=== PATIENT | male | born 1940 | race Caucasian/White ===

== ENCOUNTER → 2017-01-26 | Outpatient (CLI) | payer MEDICARE ==
--- NOTE | 2017-01-27 08:08 | ECHOF ---
Referral Reason:Z01.818 Pre Chemo MEASUREMENTS -------- HEIGHT: 172.7 cm WEIGHT: 83.0 kg BP: 130/60 RVIDd: 3.3 cm (< 3.3) IVSd: 1.0 cm (0.6 - 1.1) LVIDd: 4.9 cm (3.9 - 5.3) LVPWd: 1.0 cm (0.6 - 1.1) IVSs: 1.5 cm LVIDs: 4.2 cm LVPWs: 1.5 cm LAESV Index (A-L): 28.74 ml/m Ao Diam: 3.8 cm (2.0 - 3.7) AV Cusp: 0.9 cm (1.5 - 2.6) LA Diam: 4.1 cm (2.7 - 3.8) MV E Mariusz: 0.72 m/s MV DecT: 344 ms MV A Mariusz: 0.97 m/s MV E/A Ratio: 0.74 AV maxP.30 mmHg AV meanP.43 mmHg RAP: 5.00 mmHg RVSP: 37.37 mmHg FINDINGS -------- Sinus rhythm with extra systolic beats. This was a technically adequate study. Overall left ventricular systolic function is normal with, an EF between 55 - 60 %. The right ventricle is normal in size and function. LA is midly dilated 29-33ml/m2. The right atrium is normal in size. Aortic valve is trileaflet and is severely thickened. Trace amount of aortic regurgitation. Moderate to severe aortic stenosis with peak/mean pressure gradient of 61.30mmHg / 37.43mmHg, Mild mitral annular calcification present. There is trace to mild mitral regurgitation. Mild tricuspid regurgitation present. There is mild pulmonary hypertension. The right ventricular systolic pressure, as measured by Doppler, is 37.37mmHg. The pulmonic valve was not well visualized. The aortic root size is normal. Normal inferior vena cava with normal inspiratory collapse consistent with estimated right atrial pressure of 5 mmHg. There is a small pericardial effusion is located near the right ventricle. CONCLUSIONS -------- 1. Sinus rhythm with extra systolic beats. 2. There is mild pulmonary hypertension. 3. The right ventricular systolic pressure, as measured by Doppler, is 37.37mmHg. 4. The pulmonic valve was not well visualized. 5. The aortic root size is normal. 6. There is a small pericardial effusion is located near the right ventricle. 7. This was a technically adequate study. 8. LA is midly dilated 29-33ml/m2. 9. Aortic valve is trileaflet and is severely thickened. 10. Trace amount of aortic regurgitation. 11. Moderate to severe aortic stenosis with peak/mean pressure gradient of 61.30mmHg / 37.43mmHg, 12. Mild mitral annular calcification present. 13. There is trace to mild mitral regurgitation. 14. Mild tricuspid regurgitation present. [employer]: Aubrey Clancy RDCS
== END | disposition home or self-care (01) ==
LOC: RADECHMAIN 13:38
PROVIDERS: ATTEND Internal Medicine Hematology & Oncology
DX: Z01.810 Encounter for preprocedural cardiovascular examination (principal); I08.3 Combined rheumatic disorders of mitral, aortic and tricuspid valves; I27.2 Other secondary pulmonary hypertension; I31.3 Pericardial effusion (noninflammatory)
CPT/HCPCS: 93306

== ENCOUNTER 2017-01-28 07:43 | Day surgery (SDC) | payer MEDICARE ==
[2017-01-25 09:58] VITALS: BMI 31.0
[~2017-01-28 07:43] MED LIST: LACTATED RINGERS 1,000 ML IV SCH; Pre Op ABX Message 1 EACH MISC MISCELLANE ONE
[2017-01-28 08:20] VITALS: RESP 16; TEMP 98.1
[2017-01-28] MEDS ORDERED: LIDOCAINE 1% 20 ML VIAL (10MG/ML) FOR IV START INTRADERMA ONE (08:33)
[2017-01-28 08:36] LABS: Glucose,Whole Blood 102 mg/dL (75-99)
[2017-01-28 09:21] LABS: Anisocytosis Slight; CHCM 31.8; HCT 27.5 % (39.0-53.0); HDW 3.24; HGB 8.7 gm/dL (13.0-17.5); Hypochromasia Slight; MCH 31.9 pg (25.0-35.0); MCHC 31.5 g/dL (31.0-37.0); MCV 101.2 fL (80.0-100.0); Macrocytosis Slight; Mean Platelet Volume 7.6; RBC 2.72 m/uL (4.30-5.90); WBC 19.9 k/uL (3.8-10.6)
[2017-01-28] MEDS ORDERED: LIDOCAINE 1% INJ 10MG/ML (20 ML MDV) ONE (09:33)
[2017-01-28] MEDS ORDERED: fentaNYL (PF) 50 MCG/ML 2 ML AMP ONE (09:33)
[2017-01-28] MEDS ORDERED: MIDAZOLAM 2 MG/2 ML VIAL ONE (09:33)
[2017-01-28] MEDS ORDERED: PROPOFOL 10 MG/ML 20 ML VIAL IV ONE (09:33)
[2017-01-28] MEDS ORDERED: SODIUM CHLORIDE 0.9% 50 ML with ceFAZolin 2,000 MG IV ONE ×2 (09:45)
[2017-01-28] MEDS ORDERED: LIDOCAINE 1% INJ 10MG/ML (20 ML MDV) SQ ONE ×2 (09:57)
[2017-01-28] MEDS ORDERED: HEPARIN SODIUM,PORCINE 100 UNIT/ML 5 ML VIAL IV ONE ×2 (09:57)
--- NOTE | 2017-01-28 10:21 | P.OP ---
Date of Procedure: 01/28/17 Preoperative Diagnosis: Metastatic prostate cancer Difficult IV access Postoperative Diagnosis: Same Procedure(s) Performed: Right internal jugular 8-[place] Mediport placement under fluoroscopic and SonoSite guidance Implants: 8-[place] MediPort Anesthesia: MAC, local Surgeon: Chantal Neal Pathology: none sent Condition: stable Disposition: PACU Indications for Procedure: 76 years old male presents with metastatic prostatic cancer is undergoing chemotherapy. He presents today for Mediport placement Operative Findings: Description of Procedure: The patient was brought to the operating room and placed in supine position with both arms tucked. A footboard was placed. Chlorhexidine was used to prep the neck followed by application of sterile drapes and an Ioban dressing . A timeout was performed to verify correct patient and correct procedure. Patient was confirmed to receive perioperative IV antibiotics and VTE prophylaxis. An ultrasound was performed of the right neck to identify the carotid artery and internal jugular vein. The internal jugular vein was compressible and patent . Photodocumentation was made. Local anesthetic was infiltrated to create a field block. Seldinger technique was used and the internal jugular vein was accessed under direct ultrasound guidance. There was good backflow of dark venous blood. The guidewire was inserted and fluoroscopic images obtained to confirm the tip in SVC. The needle was removed followed by insertion of a dilator peel-away sheath. Local anesthetic was infiltrated along the inferior aspect of the right clavicle. A 2.5 cm skin incision was made and dissection was carried up to the pectoralis major muscle. A pocket was created for the port. The catheter tubing was connected to the port using the conector after flushing both the port and the catheter with normal saline. The tunneling device was connected to the end of the catheter and after placement of the port in the subcutaneous pocket the tunneling device was passed from the lower incision to the counter incision in the neck. The catheter was measured at the junction of SVC and right atrium. The inner cannula of the peel-away sheath was removed and catheter was gradually inserted. The peel-away sheath was gradually removed. Fluoroscopic image confirmed the tip of the catheter at the junction of SVC and right atrium. There was no kink, fold or torsion of the catheter and the port. The Ocasio needle was used to access the port and easy backflow was obtained. This was flushed with 10 mL of normal saline and 10 mL of Hep-Lock was inserted. The skin incision was closed in 3 layers using 3-0 Vicryl interrupted stitches and a running suture of 4-0 Monocryl. Counter incision in the neck was also closed using 3-0 Vicryl followed by 4-0 Monocryl. Dermabond skin glue was applied followed by Telfa and Tegaderm dressing. The sponge, instrument and needle count were correct x2 Patient tolerated the procedure well and was taken to post anesthesia care unit in stable condition Final chest x-ray showed the tip of the catheter in SVC and no pneumothorax. Total fluoroscopic time was 4 seconds
[2017-01-28 10:51] VITALS: PULSE 72
--- NOTE | 2017-01-28 11:23 | XR ---
EXAMINATION TYPE: XR chest 1V confirm line plcmt DATE OF EXAM: 01/28/2017 COMPARISON: 03/10/2016 HISTORY: 76-year-old male Mediport placement, rule out pneumothorax TECHNIQUE: Single frontal view of the chest is obtained. FINDINGS: Right anterior chest wall injection port with catheter tip seen to the level of the lower SVC. Multip le old healed right-sided rib fracture deformities are present. These fracture deformities cause abno rmal linear densities and lucencies in the apex making assessment for a trace pneumothorax difficult. No sizable pneumothorax is seen. Old healed left clavicular shaft fracture deformity and suspected o ld healed fracture distal right clavicle. There is some blunting of the left costophrenic angle noted . The heart is normal size. Pulmonary vasculature within normal limits. IMPRESSION: 1. Right-sided injection port with tip at the lower SVC. 2. Extensive healed fracture deformities of multiple right-sided ribs. This distorts the normal appea zoe at the right apex limiting assessment for small pneumothorax. No sizable pneumothorax is seen. Consider short interval follow-up. 3. Trace blunting of the left costophrenic angle could represent trace effusion or small amount of pa tchy atelectasis/infiltrate.
[2017-01-28 11:29] VITALS: BP 113/63
--- NOTE | 2017-01-28 12:03 | FL ---
Fluoroscopy HISTORY: Port-A-Cath insertion 4 seconds fluoroscopy time supplied to the referring clinician. 1 intraoperative C-arm images docume nt the procedure. See dictated report from general surgery.
== END 2017-01-28 12:06 | disposition home or self-care (01) ==
LOC: OR 07:43
PROVIDERS: ATTEND Surgery
DX: C61 Malignant neoplasm of prostate (principal); I48.91 Unspecified atrial fibrillation; I10 Essential (primary) hypertension; K21.9 Gastro-esophageal reflux disease without esophagitis; Z88.5 Allergy status to narcotic agent; Z91.018 Allergy to other foods; Z91.09 Other allergy status, other than to drugs and biological substances
CPT/HCPCS: 85027; 77001; 36561; 76937; C1788; J2250; J1642; J2001; J3010; J0690; J2704

== ENCOUNTER → 2017-10-18 | Outpatient (CLI) | payer OTHER ==
--- NOTE | 2017-10-18 15:21 | NM ---
EXAMINATION TYPE: NM bone scan whole body DATE OF EXAM: 10/18/2017 COMPARISON: Prior bone scan and CT 04/14/2017 HISTORY: Prostate cancer Delayed whole-body scanning was performed following the injection of 25.1 mCi Tc 99m MDP. Images acq uired 3 hours post injection. FINDINGS: Uptake at the level of the proximal femur is again noted. Suspect there is an ostomy bag in the right lower quadrant. Uptake present at the level of the pubic symphysis on the right greater than left, i schium on the left and ilium on the right and posterior right eighth rib appear less intense. Questio n a small focus of uptake involving the sternum on the right. Sacral activity corresponds to abnormal ity seen on CT. There is a mild spinal curvature. Old right-sided rib fractures again noted posteriorly, old left-jhonathan ed clavicular fracture noted and appears healed. IMPRESSION: Some improvement in the intensity of uptake is noted.
== END ==
LOC: RADNMMAIN 10:45
PROVIDERS: ATTEND Internal Medicine Hematology & Oncology
DX: C61 Malignant neoplasm of prostate (principal)
CPT/HCPCS: 82565; 84520; 78306; A9503

== ENCOUNTER → 2017-10-21 | Outpatient (CLI) | payer OTHER ==
[2017-10-21 08:50] LABS: Blood Urea Nitrogen 9 mg/dL (9-20)
--- NOTE | 2017-10-21 11:13 | CT ---
EXAMINATION TYPE: CT ChestAbdPelvis w con DATE OF EXAM: 10/21/2017 COMPARISON: Prior CT chest abdomen and pelvis April 14, [address] studies. HISTORY: Prostate CA, observed for metastases. CT DLP: 762.8 mGycm. Automated Exposure Control for Dose Reduction was Utilized. CONTRAST: CT scan of the thorax, abdomen and pelvis is performed with oral and with IV Contrast, patient inject ed with 100 mL of Isovue 300. FINDINGS: LUNGS: There is bibasilar scarring and/or atelectasis. No suspicious greater than 5 mm new parenchyma l nodules or masses are present. There is no pleural effusion or pneumothorax seen. The tracheobronc hial tree is patent. MEDIASTINUM: There are no greater than 1 cm hilar or mediastinal lymph nodes. No cardiomegaly or pe ricardial effusion is seen. Coronary artery calcification is present which is noted marker for coron kina artery disease. There is stable right internal jugular Mediport catheter. OTHER: No obvious supraclavicular adenopathy on current study LIVER/GB: Multiple hypodense lesions consistent with hepatic metastatic disease are redemonstrated. T arget lesion anterior segment right hepatic lobe measures 4.7 cm long axis adjacent to is slightly hy podense oval lesion posteriorly axial image 53 measured 5.5 cm long axis prior study image 52. Lesion anterior aspect lateral segment left hepatic lobe measures 4.3 cm long axis axial image 54 versus 5. 2 cm long axis prior study image 52. Overall all suspicious lesions appear slightly smaller in size f rom prior study. There are few denser lesions felt to reflect simple cysts are felt stable. No defini tive new lesions are seen. PANCREAS: No significant abnormality is seen. SPLEEN: No significant abnormality is seen. ADRENALS: Stable slight nodularity posterior limb left adrenal gland axial image 58 favored benign. KIDNEYS: Along lateral aspect of right kidney there is new focal somewhat ill-defined fluid mid pole level axial image 66 of uncertain etiology. There is partially duplicated right-sided collecting syst em with central calcifications likely vascular in etiology. There is symmetric cortical medullary upt angela and excretion from both kidneys without hydronephrosis identified bilaterally. Bladder is surgica lly absent. There is right-sided ileal conduit redemonstrated. BOWEL: There is persistent distal colectomy with left mid sided colostomy. A few diverticula in the d istal colon are present. There is no suspicious small or large bowel dilatation. There is persistent abnormal soft tissue in the presacral space near axial image 109 felt fairly stable favoring scar tis vinita from prior surgery. There is stable small to moderate-sized hiatal hernia. No adjacent adenopathy is seen. GENITAL ORGANS: Prostate is surgically absent. LYMPH NODES: No new greater than 1cm abdominal or pelvic lymph nodes are appreciated. Stable subcenti meter left periaortic lymph node measures 11 x 5 mm axial image 60. OSSEOUS STRUCTURES: Metallic hardware in the right proximal femur is redemonstrated causing streak ar tifact. Moderate to severe joint space loss and spurring and left hip is present. Sclerotic metastatic disease involving left posterior acetabulum, right iliac crest coronal image 55, and lower sacrum seen best coronal image 79 is redemonstrated felt stable. There is demineralization with slight underlying scoliotic curvature moderate to severe multilevel spurring. There are numerou s right-sided posterior and lateral healed rib fractures. OTHER: There is moderate to severe calcified plaque of aorta extending into branch vessels IMPRESSION: Overall positive treatment response (suspected patient is currently on chemotherapy) with diminished size of hepatic metastatic lesions. No new metastatic lesions are seen. By RECIST criter ia there is however less than 30% response and is thus technically stable disease by RECIST.
== END | disposition home or self-care (01) ==
LOC: RADPROMAIN 07:53
PROVIDERS: ATTEND Internal Medicine Hematology & Oncology
DX: C61 Malignant neoplasm of prostate (principal); C78.7 Secondary malignant neoplasm of liver and intrahepatic bile duct
CPT/HCPCS: 82565; 84520; 71260; 74177; J1642; Q9967

== ENCOUNTER → 2018-01-17 | Outpatient (CLI) | payer OTHER ==
[2018-01-17 10:48] LABS: Blood Urea Nitrogen 13 mg/dL (9-20)
--- NOTE | 2018-01-17 14:48 | NM ---
EXAMINATION TYPE: NM bone scan whole body DATE OF EXAM: 01/17/2018 COMPARISON: 10/18/2017 HISTORY: Prostate cancer Delayed whole-body scanning was performed following the injection of 24.5 mCi Tc 99m MDP. Images acq uired 3 hours post injection. FINDINGS: Uptake at the level of the proximal femur is again noted. Suspect there is an ostomy bag in the right lower quadrant. Uptake present at the level of the pubic symphysis on the right greater than left, i schium on the left and ilium on the right and posterior right eighth rib appear less intense. Questio n a small focus of uptake involving the sternum on the right. Sacral activity corresponds to abnormal ity seen on CT. There is a mild spinal curvature. Old right-sided rib fractures again noted posteriorly, old left-jhonathan ed clavicular fracture noted and appears healed. IMPRESSION: Stable abnormal uptake unchanged from the prior exam. Findings compatible with metastases.
--- NOTE | 2018-01-17 18:44 | CT ---
EXAMINATION TYPE: CT ChestAbdPelvis w con DATE OF EXAM: 01/17/2018 INDICATION: Prostate CA, suspect mets COMPARISON: 10/21/2017 CT DLP: 814.2 mGycm CONTRAST: Performed with Oral Contrast and with IV Contrast, patient injected with 100 mL of Isovue 300. TECHNIQUE: Axial images at 5 mm thick sections. Reconstructed images in the coronal plane. Delayed images through the kidneys. FINDINGS: CT CHEST: Portion of the thyroid visualized is normal. No suspicious lung nodules or focal infiltrates are present. No enlarged mediastinal or hilar adenopathy is evident. The ascending aorta diameter at the level of the main pulmonary artery is 3.4 cm. The main pulmonary artery diameter at the bifurcation is 2.7 cm. Coronary artery calcifications present. Small right pl eural effusion may be present. There is a 0.5 cm nodule at the posterior lateral left midlung. This w as faintly visualized previously. Interval growth is not evident. Series 4 image 33 additional puncta te densities in the right lower lobe superior segment measuring 0.3 cm[address] Series [address] ABDOMEN: Liver: There are multiple enlarged hypodensities with ill-defined margins within the liver compatible with metastatic disease. These are less defined than the comparison. Where comparable these appear l arger. There is a more hypodense area within the mid medial right lobe liver measuring 5.0 cm which i s enlarged from comparison. This has Hounsfield unit measurements of 23. Lesions are within both left and right lobes of liver. A more infiltrative process is not excluded in the left lobe liver the cur rent examination. Spleen: Normal Pancreas: Normal Adrenal glands: The adrenal glands are normal. Gallbladder: Normal Kidneys: No masses are evident. No hydronephrosis is present. There is an ill-defined 3.2 cm hypode nsity measuring 4 Hounsfield units on the posterior lateral right mid kidney present previously. Del ayed images were obtained through the kidneys, which remain unremarkable. Aorta: Vascular calcification is within the aorta. Inferior vena cava: Normal. CT PELVIS: Scattered diverticuli are within the colon. Ostomy site is in the right lower quadrant. There is a di lated right ureter urostomy bag is on the right. Left ureter is less prominent than on the right. There are loops of bowel which are incompletely distended or lack oral contrast limiting their evalu ation. Appendix: Normal as visualized. Urinary bladder: Surgically absent Genitourinary structures: Prostate is absent. Loops of bowel falling into the lower portion of the pe lvis. Osseous structures: There is a large sclerotic metastasis along the posterior left ilium. Prior repai r of fractures in the right femur. Scoliosis and degenerative changes are through the spine. IMPRESSIONS: 1. Hepatic lesions are less distinct than on the prior study and a more infiltrative process may be p resent. Lesions appear larger than the comparison study. 2. Sclerotic metastasis likely along the posterior left ilium. 3. Postsurgical changes. There is some prominence of the right ureter. 4. Couple of small nodules within the bilateral lung funez, present previously. On the right this bustamante s enlarged slightly from comparison
== END | disposition home or self-care (01) ==
LOC: RADNMMAIN 09:35
PROVIDERS: ATTEND Internal Medicine Hematology & Oncology
DX: R93.7 Abnormal findings on diagnostic imaging of other parts of musculoskeletal system (principal); K76.9 Liver disease, unspecified; R91.8 Other nonspecific abnormal finding of lung field; C61 Malignant neoplasm of prostate
CPT/HCPCS: 82565; 84520; 71260; 74177; 78306; A9503; J1642; Q9967

== ENCOUNTER 2018-03-19 07:40 | Emergency (ER) | payer OTHER ==
[2018-03-19 07:45] VITALS: RESP 16
--- NOTE | 2018-03-19 07:59 | ED ---
Extremity Problem HPI - General Source: patient, RN notes reviewed, old records reviewed Mode of arrival: ambulatory Limitations: no limitations <Fadia Bullock - Last Filed: 03/19/18 09:43> <Robby Pereira - Last Filed: 03/19/18 09:48> - General Chief complaint: Extremity Problem,Nontraumatic Stated complaint: RT HAND SWELLING Time Seen by Provider: 03/19/18 07:47 - History of Present Illness Initial comments: Patient is a 78-year-old male with history of stage IV prostate cancer presents emergency Department chief complaint of painless right hand swelling. Patient reports that he was crawling under his DAC 3 days ago and was changing his furnace filter. Patient reports that he has a small abrasion over the anterior aspect of the wrist. Denies any pain or erythematous changes to the skin of the wrist and hand. He reports he has full range of motion. He states he has no elbow or shoulder pain. He denies any trauma to the hand or wrist. ( Fadia Bullock) - Related Data Home Medications Medication Instructions Recorded Confirmed amLODIPine BES/OLMESARTAN MED 1 tab PO DAILY 01/09/15 01/28/17 [Rica 5-40 mg Tablet] Calcium Carbonate [Calcium] 600 mg PO DAILY 01/25/17 01/28/17 Ferrous Sulfate [Iron] 325 mg PO DAILY 01/25/17 01/28/17 aMILoride HCL 5 mg PO DAILY 01/25/17 01/28/17 predniSONE 10 mg PO DAILY 01/25/17 01/28/17 Previous Rx's Medication Instructions Recorded HYDROcodone/APAP 5-325MG [[place] 1 - 2 each PO Q4-6H PRN #60 tab 03/15/16 5-325] Sennosides-Docusate Sodium 2 tab PO DAILY #30 tablet 03/15/16 [Senokot-S] Allergies Allergy/AdvReac Type Severity Reaction Status Date / Time hydromorphone HCl Allergy Confusion Verified 01/17/18 11:25 [From Dilaudid] Mushroom Allergy Swelling Verified 01/17/18 11:25 Review of Systems ROS Other: All systems not noted in ROS Statement are negative. <Fadia Bullock - Last Filed: 03/19/18 09:43> ROS Other: All systems not noted in ROS Statement are negative. <Rboby Pereira - Last Filed: 03/19/18 09:48> ROS Statement: Those systems with pertinent positive or pertinent negative responses have been documented in the HPI. Past Medical History Past Medical History: Atrial Fibrillation, Cancer, Hypertension, Prostate Disorder, Skin Disorder Additional Past Medical History / Comment(s): prostate bladder and rectal CA, radiation 8-9 months ago; chemo finished 1 week ago; occ rash on nose; arthritis History of Any Multi-Drug Resistant Organisms: None Reported Past Surgical History: Bladder Surgery, Prostate Surgery Additional Past Surgical History / Comment(s): prostate, bladder and rectum removal; ileostomy & urostomy; hernia repair; rotator cuff;. FX Leg 35 yrs ago. Past Anesthesia/Blood Transfusion Reactions: No Reported Reaction Additional Past Anesthesia/Blood Transfusion Reaction / Comment(s): blood transfusion last month Past Psychological History: No Psychological Hx Reported Smoking Status: Former smoker Past Alcohol Use History: None Reported Past Drug Use History: None Reported - Past Family History Brother(s) Family Medical History: Cancer <Fadia Bullock - Last Filed: 03/19/18 09:43> General Exam Limitations: no limitations General appearance: alert, in no apparent distress Head exam: Present: atraumatic, normocephalic, normal inspection Eye exam: Present: normal appearance, PERRL, EOMI. Absent: scleral icterus, conjunctival injection, periorbital swelling ENT exam: Present: normal exam, mucous membranes moist Neck exam: Present: normal inspection. Absent: tenderness, meningismus, lymphadenopathy Respiratory exam: Present: normal lung sounds bilaterally Cardiovascular Exam: Present: regular rate, normal rhythm, normal heart sounds. Absent: systolic murmur, diastolic murmur, rubs, gallop, clicks Right Upper Arm exam: Present: normal inspection, full ROM Elbow exam: Present: normal inspection, full ROM Forearm Wrist exam: Present: normal inspection, full ROM, swelling (Minimal swelling onto the dorsum of the right hand. ) Hand Wrist exam: Present: full ROM, swelling. Absent: normal inspection, tenderness, abrasion, ecchymosis, deformity, crepitus, erythema Neuro motor exam: Present: wrist extension intact, thumb opposition intact, thumb IP flexion intact, thumb adduction intact, fingers 2-5 abduction intact Vascular: Present: normal capillary refill Back exam: Present: normal inspection Neurological exam: Present: alert, oriented X3, CN II-XII intact Psychiatric exam: Present: normal affect, normal mood <Fadia Bullock - Last Filed: 03/19/18 09:43> <Robby Pereira - Last Filed: 03/19/18 09:48> - General Exam Comments Initial Comments: Pleasant 78-year-old male. No significant distress. (KobeFadia) Course <Fadia Bullock - Last Filed: 03/19/18 09:43> <Robby Pereira - Last Filed: 03/19/18 09:48> Vital Signs 03/19/18 07:41 Temperature 97.4 F L Pulse Rate 78 Respiratory 16 Rate Blood Pressure 142/62 O2 Sat by Pulse 99 Oximetry - Reevaluation(s) Reevaluation #1: 03/19/18 09:47 PA supervision: I personally saw the patient and examined him. I reviewed and agree with the PA findings including all diagnostic interpretations and treatment plans is written unless otherwise stated. Patient does relate to me that he's had 2 episodes once were he tripped and fell against a door jamb striking his right hand last couple weeks addition to this he was crawling underneath his house to change a furnace filter. No evidence of fractures on x- rays no evidence of DVT. (Robby Pereira) Medical Decision Making - Radiology Data Radiology results: report reviewed <Fadia Bullock - Last Filed: 03/19/18 09:43> <RandallRobby - Last Filed: 03/19/18 09:48> - Medical Decision Making Patient is a 78-year-old male presents emergency room today with chief complaint of swelling to the right hand. Patient has full range of motion of the hand, normal capillary refill and radial pulse. Patient has no overlying skin changes. He has no significant pain. Patient at this time had an ultrasound which was negative for DVT. X-ray of the hand shows soft tissue swelling but no bony or maladies. Patient later relates that he did fall and catch himself on the hand. He has no tenderness over the snuffbox. Discussed close likely just contusion soft tissue swelling related to the trauma that time. I also had Dr. Pereira examined the Patient. Recommends to keep him up and elevated at this time. Discussed that he has any worsening pain or symptoms including skin changes he should return for reevaluation. Patient agrees to treatment plan will comply. Return parameters were discussed. (Fadia Bullock) - Radiology Data Occur shows large amount of soft tissue swelling. Poor exposure. No acute osseous lesions noted. (Fadia Bullock) Disposition Is patient prescribed a controlled substance at d/c from ED?: No Time of Disposition: 09:45 <Fadia Bullock - Last Filed: 03/19/18 09:43> <Robby Pereira - Last Filed: 03/19/18 09:48> Clinical Impression: Swelling of right hand Disposition: HOME SELF-CARE Condition: Good Instructions: Swollen Joint (ED) Additional Instructions: He has a follow-up with your primary care physician within the next 1-2 days. If there is any overlying skin changes including redness, or significant bruising present return to the emergency department for reevaluation. Patient advised to keep hand up and elevated as much as possible for the next 24-48 hours. Referrals: Randall Mcgraw DO [STAFF PHYSICIAN] - 1-2 days
--- NOTE | 2018-03-19 08:42 | XR ---
EXAMINATION TYPE: XR hand complete RT , 5 YEARS DATE OF EXAM ORDERED: 03/19/2018 HISTORY: Pain. COMPARISON: None. FINDINGS: The study is poorly exposed in spite of repeated attempts to improve the exposure. No frac ture, dislocation or other acute osseous lesion is seen. There is considerable soft tissue swelling. There is degenerative change at the first carpal metacarpal joint. IMPRESSION: 1. LARGE AMOUNT OF SOFT TISSUE SWELLING. 2. POOR EXPOSURE. 3. NO ACUTE OSSEOUS LESION. 4. DEGENERATIVE CHANGE.
--- NOTE | 2018-03-19 09:21 | US ---
EXAMINATION TYPE: US venous Doppler duplex UE RT DATE OF EXAM: 03/19/2018 COMPARISON: NONE CLINICAL HISTORY: Pain. Right hand swelling x 3 days. Patient stated was in his home's crawl space ch [employer] furnace filter 1 week ago; also stated suffered laceration to right lateral posterior wrist 3 weeks ago. SIDE PERFORMED: Right Right Arm: Negative for DVT. Multiple anterior fluid channels noted at posterior right hand swelling IMPRESSION: 1. THIS EXAMINATION IS NEGATIVE FOR DVT RIGHT ARM. 2. CONSIDERABLE EDEMA IN THE DORSUM OF THE HAND.
[2018-03-19 10:04] VITALS: BP 144/80; PULSE 74; TEMP 98
== END 2018-03-19 10:03 | disposition home or self-care (01) ==
LOC: EC 07:40
DX: M79.89 Other specified soft tissue disorders (principal); I48.91 Unspecified atrial fibrillation; I10 Essential (primary) hypertension; Z85.46 Personal history of malignant neoplasm of prostate; Z85.51 Personal history of malignant neoplasm of bladder; Z85.048 Personal history of other malignant neoplasm of rectum, rectosigmoid junction, and anus; Z87.891 Personal history of nicotine dependence; Z79.52 Long term (current) use of systemic steroids; Z79.899 Other long term (current) drug therapy; Z88.6 Allergy status to analgesic agent; Z91.018 Allergy to other foods
CPT/HCPCS: 99284

== ENCOUNTER → 2018-03-31 | Outpatient (CLI) | payer OTHER ==
--- NOTE | 2018-03-31 12:12 | CT ---
EXAMINATION TYPE: CT ChestAbdPelvis w con DATE OF EXAM: 03/31/2018 COMPARISON: CT chest abdomen pelvis January 17, 2018 and older studies HISTORY: observe for mets, prostate ca. possible fx RT lower rib. Concerned with lack of tissue aroun d rectum. CT DLP: 685.10 mGycm. Automated Exposure Control for Dose Reduction was Utilized. CONTRAST: CT scan of the thorax, abdomen and pelvis is performed with oral and with IV Contrast, patient inject ed with 100 mL of Isovue 300. FINDINGS: LUNGS: There is new small left pleural effusion. There is associated compressive atelectasis in the l eft lung base. No new concerning nodule or mass is present. There is stable 3 mm left mid lung nodule laterally axial image 33. MEDIASTINUM: There are no greater than 1 cm hilar or mediastinal lymph nodes. There is stable tiny pe ricardial effusion. Coronary artery calcification and/or stents are redemonstrated. No new cardiomeg pilar. Stable right internal jugular Mediport catheter. Subcentimeter lymph nodes right pericardial reg ion are stable axial image 48. OTHER: No additional significant abnormality is seen. LIVER/GB: Diffuse hepatic metastatic disease continues to progress with new and larger hypodense lesi ons present. Due to confluent appearance accurate measurements is difficult. Worsening involvement he patic dome there are axial image 49 is noted. Central hypodense lesion now has surrounding hypodensit y that is slightly less dense measuring 7.8 cm long axis axial image 56 where it measured 5.4 cm on l matheus axis prior study. PANCREAS: No suspicious mass or ductal dilatation. SPLEEN: No significant abnormality is seen. ADRENALS: No significant abnormality is seen. KIDNEYS: Central calcifications both kidneys favor vascular. There is symmetric cortical medullary up take and excretion from both kidneys without hydronephrosis bilaterally. Bladder is surgically absent . Right pelvic ileal conduit is redemonstrated. BOWEL: There is distal colectomy with left lower quadrant colostomy. Oral contrast reaches stoma. The re is no suspicious small or large bowel dilatation. Diverticula at stoma in distal colon are redemon strated. GENITAL ORGANS: Prostate is not well seen and presumed surgically absent. LYMPH NODES: No greater than 1cm abdominal or pelvic lymph nodes are appreciated. OSSEOUS STRUCTURES: Surgical change to right proximal femur is partially imaged. Osseous structures a re demineralized. There is multilevel moderate to severe spurring throughout the thoracolumbar spine. There is moderate disc space narrowing with vacuum disc phenomenon L4-L5 level redemonstrated. Under lying S-shaped scoliosis is again seen. Irregular sclerotic lesion posterior left iliac bone is felt stable near axial image 110. Sclerosis in the sacrum for reference coronal image 76 inferiorly is red emonstrated without significant interval change. Sclerosis also involves right pubic symphysis not si gnificantly changed from prior. Suspect old fracture distal right clavicle. Old trauma to right ribs is seen with fracture deformity and bridging. Sclerosis of old fractured right posterior lateral eigh th rib is redemonstrated. OTHER: Prominent right-sided soft tissue presacral space is nonspecific narrowing axial image 110 but not significant change from prior studies favoring scarring. IMPRESSION: Suspected continued interval progression of hepatic metastatic disease. New small left pl eural effusion noted. Suspected stable osseous metastatic disease.
--- NOTE | 2018-03-31 12:32 | NM ---
EXAMINATION TYPE: NM bone scan whole body DATE OF EXAM: 03/31/2018 COMPARISON: 01/17/2018 bone scan, CT scan 03/31/2018 HISTORY: Prostate cancer Delayed whole-body scanning was performed following the injection of 23.9 mCi Tc 99m MDP. Images acq uired 3 hours post injection. FINDINGS: Abnormal uptake involving the right iliac bone, left acetabulum and bilateral pubic rami, right proxi mal femur, right iliac bone, right rib cage are again noted appears similar relative to the prior exa m. Faint uptake involving the lateral right rib cage likely in the basis of previous trauma. The more intense lesion is compatible with known metastasis and CT finding. Uptake within the right-sided ost vasyl suspected. IMPRESSION: 1. Skeletal uptake noted appears stable suggestive of metastasis similar appearance to the prior exam .
== END | disposition home or self-care (01) ==
LOC: RADNMMAIN 08:17
PROVIDERS: ATTEND Internal Medicine Hematology & Oncology
DX: J90 Pleural effusion, not elsewhere classified (principal); R94.8 Abnormal results of function studies of other organs and systems; C61 Malignant neoplasm of prostate
CPT/HCPCS: 82565; 84520; 71260; 74177; 36415; 78306; A9503; Q9967

== ENCOUNTER 2018-07-21 13:55 | Inpatient (IN) | payer MEDICARE, OTHER ==
--- NOTE | 2018-07-21 14:16 | ED ---
General Adult HPI - General Chief complaint: Shortness of Breath Stated complaint: tired from new medication Time Seen by Provider: 07/21/18 14:08 Source: patient, family, RN notes reviewed Mode of arrival: wheelchair Limitations: no limitations - History of Present Illness Initial comments: Patient is a pleasant 78-year-old male presenting to the emergency department with fatigue and dyspnea. Symptoms have progressed over several weeks. Patient is on treatment for stage IV metastatic prostate cancer. Patient does have leg edema. Patient feels fatigued and short of breath, especially with exertion. No cough. No fever. Patient feels generally weak. No isolated area of weakness. No confusion. Patient and family admit that he does appear jaundiced and states this is been going on for weeks or more. - Related Data Home Medications Medication Instructions Recorded Confirmed amLODIPine BES/OLMESARTAN MED 1 tab PO DAILY 01/09/15 07/21/18 [Rica 5-40 mg Tablet] Cabozantinib S-Malate [Cabometyx] 20 mg PO DAILY 07/21/18 07/21/18 Cholecalciferol [Vitamin D3] 1,000 unit PO DAILY 07/21/18 07/21/18 Omeprazole 20 mg PO DAILY 07/21/18 07/21/18 Sulfamethox-Tmp 800-160Mg [Bactrim 1 tab PO Q12HR 07/21/18 07/21/18 DS 800-160 mg] Allergies Allergy/AdvReac Type Severity Reaction Status Date / Time hydromorphone HCl Allergy Confusion Verified 07/21/18 15:12 [From Dilaudid] Mushroom Allergy Swelling Verified 07/21/18 15:12 Review of Systems ROS Statement: Those systems with pertinent positive or pertinent negative responses have been documented in the HPI. ROS Other: All systems not noted in ROS Statement are negative. Constitutional: Denies: fever Eyes: Denies: eye pain ENT: Denies: ear pain Respiratory: Reports: dyspnea Cardiovascular: Denies: chest pain Endocrine: Reports: fatigue Gastrointestinal: Denies: abdominal pain Genitourinary: Denies: dysuria Musculoskeletal: Denies: back pain Skin: Reports: as per HPI, rash Neurological: Denies: weakness Past Medical History Past Medical History: Atrial Fibrillation, Cancer, Hypertension, Prostate Disorder, Skin Disorder Additional Past Medical History / Comment(s): prostate bladder and rectal CA, radiation 8-9 months ago; chemo finished 1 week ago; occ rash on nose; arthritis History of Any Multi-Drug Resistant Organisms: None Reported Past Surgical History: Bladder Surgery, Prostate Surgery Additional Past Surgical History / Comment(s): prostate, bladder and rectum removal; ileostomy & urostomy; hernia repair; rotator cuff;. FX Leg 35 yrs ago. Past Anesthesia/Blood Transfusion Reactions: No Reported Reaction Additional Past Anesthesia/Blood Transfusion Reaction / Comment(s): blood transfusion last month Past Psychological History: No Psychological Hx Reported Smoking Status: Former smoker Past Alcohol Use History: None Reported Past Drug Use History: None Reported - Past Family History Brother(s) Family Medical History: Cancer General Exam Limitations: no limitations General appearance: alert, in no apparent distress Head exam: Present: atraumatic Eye exam: Present: scleral icterus ENT exam: Present: normal oropharynx Neck exam: Present: normal inspection Respiratory exam: Present: normal lung sounds bilaterally Cardiovascular Exam: Present: regular rate, irregular rhythm GI/Abdominal exam: Present: soft. Absent: distended, tenderness Extremities exam: Present: normal inspection Neurological exam: Present: alert, CN II-XII intact. Absent: motor sensory deficit Psychiatric exam: Present: normal affect, normal mood Skin exam: Present: other (Jaundice) Course Vital Signs 07/21/18 07/21/18 13:59 15:07 Temperature 98.1 F 98 F Pulse Rate 52 L 112 H Respiratory 20 20 Rate Blood Pressure 126/89 108/95 O2 Sat by Pulse 99 96 Oximetry EKG Findings - EKG Comments: EKG Findings:: A. fib with a rate of 79. QRS 96. QT 376. QTc 545. Left axis. Septal Q waves. No acute ST change. Low QRS voltage. Medical Decision Making - Medical Decision Making Patient reevaluated and unchanged. Patient and family updated. Case was discussed in detail with Dr. Aponte who would like ultrasound done. He also would like computed tomography scan however is going to hold at this time secondary to creatinine level. He does recommend cardiology consult and echo as well as nephrology consult. Case was also discussed in detail with Dr. Medina. He does agree with ultrasound. He states if there is sign of obstruction or dilated common bile duct patient may need MRCP if still able to get done today. He will admit covering for Dr. Mcgraw. - Lab Data Result diagrams: 07/21/18 14:35 02/01/19 15:15 Lab Results 07/21/18 07/21/18 07/21/18 Range/Units 14:05 14:35 14:35 WBC 4.0 (3.8-10.6) k/uL RBC 2.98 L (4.30-5.90) m/uL Hgb 9.2 L (13.0-17.5) gm/dL Hct 30.2 L (39.0-53.0) % MCV 101.3 H (80.0-100.0) fL MCH 30.9 (25.0-35.0) pg MCHC 30.5 L (31.0-37.0) g/dL RDW 18.2 H (11.5-15.5) % Plt Count 162 (150-450) k/uL Neutrophils % 75 % Lymphocytes % 13 % Monocytes % 8 % Eosinophils % 0 % Basophils % 0 % Neutrophils # 3.0 (1.3-7.7) k/uL Lymphocytes # 0.5 L (1.0-4.8) k/uL Monocytes # 0.3 (0-1.0) k/uL Eosinophils # 0.0 (0-0.7) k/uL Basophils # 0.0 (0-0.2) k/uL Hypochromasia Moderate Anisocytosis Slight Macrocytosis Moderate PT (9.0-12.0) sec INR (<1.2) APTT (22.0-30.0) sec Sodium (137-145) mmol/L Potassium (3.5-5.1) mmol/L Chloride (98-107) mmol/L Carbon Dioxide (22-30) mmol/L Anion Gap mmol/L BUN (9-20) mg/dL Creatinine (0.66-1.25) mg/dL Est GFR (CKD-EPI)AfAm (>60 ml/min/1.73 sqM) Est GFR (CKD-EPI)NonAf (>60 ml/min/1.73 sqM) Glucose (74-99) mg/dL Calcium (8.4-10.2) mg/dL Total Bilirubin (0.2-1.3) mg/dL AST (17-59) U/L ALT (21-72) U/L Alkaline Phosphatase (38-126) U/L NT-Pro-B Natriuret Pep 7610 pg/mL Total Protein (6.3-8.2) g/dL Albumin (3.5-5.0) g/dL Urine Color Dark Brown Urine Appearance Cloudy (Clear) Urine pH 6.0 (5.0-8.0) Ur Specific Hilbert 1.013 (1.001-1.035) Urine Protein 1+ H (Negative) Urine Glucose (UA) Negative (Negative) Urine Ketones Negative (Negative) Urine Blood Moderate H (Negative) Urine Nitrite Negative (Negative) Urine Bilirubin 3+ H (Negative) Urine Urobilinogen 2.0 (<2.0) mg/dL Ur Leukocyte Esterase Negative (Negative) Urine RBC 23 H (0-5) /hpf Urine WBC 4 (0-5) /hpf Ur Squamous Epith Cells <1 (0-4) /hpf Hyaline Casts 88 H (0-2) /lpf Urine Mucus Rare H (None) /hpf 07/21/18 07/21/18 Range/Units 15:15 15:15 WBC (3.8-10.6) k/uL RBC (4.30-5.90) m/uL Hgb (13.0-17.5) gm/dL Hct (39.0-53.0) % MCV (80.0-100.0) fL MCH (25.0-35.0) pg MCHC (31.0-37.0) g/dL RDW (11.5-15.5) % Plt Count (150-450) k/uL Neutrophils % % Lymphocytes % % Monocytes % % Eosinophils % % Basophils % % Neutrophils # (1.3-7.7) k/uL Lymphocytes # (1.0-4.8) k/uL Monocytes # (0-1.0) k/uL Eosinophils # (0-0.7) k/uL Basophils # (0-0.2) k/uL Hypochromasia Anisocytosis Macrocytosis PT 13.2 H (9.0-12.0) sec INR 1.3 H (<1.2) APTT 29.2 (22.0-30.0) sec Sodium 135 L (137-145) mmol/L Potassium 4.1 (3.5-5.1) mmol/L Chloride 108 H (98-107) mmol/L Carbon Dioxide 17 L (22-30) mmol/L Anion Gap 10 mmol/L BUN 23 H (9-20) mg/dL Creatinine 1.71 H (0.66-1.25) mg/dL Est GFR (CKD-EPI)AfAm 44 (>60 ml/min/1.73 sqM) Est GFR (CKD-EPI)NonAf 38 (>60 ml/min/1.73 sqM) Glucose 98 (74-99) mg/dL Calcium 7.2 L (8.4-10.2) mg/dL Total Bilirubin 11.0 H (0.2-1.3) mg/dL AST 111 H (17-59) U/L ALT 44 (21-72) U/L Alkaline Phosphatase 331 H (38-126) U/L NT-Pro-B Natriuret Pep pg/mL Total Protein 6.4 (6.3-8.2) g/dL Albumin 2.7 L (3.5-5.0) g/dL Urine Color Urine Appearance (Clear) Urine pH (5.0-8.0) Ur Specific Hilbert (1.001-1.035) Urine Protein (Negative) Urine Glucose (UA) (Negative) Urine Ketones (Negative) Urine Blood (Negative) Urine Nitrite (Negative) Urine Bilirubin (Negative) Urine Urobilinogen (<2.0) mg/dL Ur Leukocyte Esterase (Negative) Urine RBC (0-5) /hpf Urine WBC (0-5) /hpf Ur Squamous Epith Cells (0-4) /hpf Hyaline Casts (0-2) /lpf Urine Mucus (None) /hpf - Radiology Data Radiology results: image reviewed (Chest x-ray shows mild bilateral effusions.) Disposition Clinical Impression: Congestive heart failure, Liver failure Disposition: ADMITTED IP TO THIS HOSP Is patient prescribed a controlled substance at d/c from ED?: No Referrals: Randall Mcgraw DO [Primary Care Provider] - 1-2 days Decision Time: 16:20
[2018-07-21 14:45] LABS: Anisocytosis Slight; Basophils % (A) 0 %; Eosinophils % (A) 0 %; HCT 30.2 % (39.0-53.0); HGB 9.2 gm/dL (13.0-17.5); Hypochromasia Moderate; Lymphocytes # (A) 0.5 k/uL (1.0-4.8); Lymphocytes % (A) 13 %; MCH 30.9 pg (25.0-35.0); MCHC 30.5 g/dL (31.0-37.0); MCV 101.3 fL (80.0-100.0); Macrocytosis Moderate; Mean Platelet Volume 8.1; Monocytes # (A) 0.3 k/uL (0-1.0); Monocytes % (A) 8 %; Neutrophils % (A) 75 %; Platelet Count 162 k/uL (150-450); RBC 2.98 m/uL (4.30-5.90); RDW 18.2 % (11.5-15.5)
[2018-07-21 14:56] LABS: Appearance,Urine Cloudy (Clear); Bilirubin,Urine 3+ (Negative); Blood,Urine Moderate (Negative); Color,Urine Dark Brown; Glucose,Urine (UA) Negative (Negative); Hyaline Casts,Urine 88 /lpf (0-2); Ketones,Urine Negative (Negative); Leukocyte Esterase,Urine Negative (Negative); Mucus,Urine Rare /hpf; Nitrite,Urine Negative (Negative); Protein,Urine 1+ (Negative); RBC,Urine 23 /hpf (0-5); Specific Gravity,Urine 1.013 (1.001-1.035); Squamous Epithelial Cell,Urine <1 /hpf (0-4); WBC,Urine 4 /hpf (0-5)
--- NOTE | 2018-07-21 15:15 | XR ---
EXAMINATION TYPE: XR chest 2V DATE OF EXAM: 07/21/2018 COMPARISON: Prior chest x-ray 01/28/2017 HISTORY: Difficulty breathing, shortness of breath and lower extremity edema TECHNIQUE: Frontal and lateral views of the chest are obtained. FINDINGS: There is blunting the posterior costophrenic angles. Right-sided Port-A-Cath remains in pl francesca. No evident pneumothorax. Heart size is stable. Chest wall abnormalities are stable. Arthropathy noted in the shoulders. Aorta is dense. IMPRESSION: Probable basilar atelectasis and effusions.
[2018-07-21 15:42] LABS: Albumin 2.7 g/dL (3.5-5.0); Calcium 7.2 mg/dL (8.4-10.2); INR 1.3 (<1.2); Partial Thromboplastin Time 29.2 sec (22.0-30.0); Potassium 4.1 mmol/L (3.5-5.1); Prothrombin Time 13.2 sec (9.0-12.0); Total Protein 6.4 g/dL (6.3-8.2)
[2018-07-21] MEDS ORDERED: SODIUM CHLORIDE 0.9% 1,000 ML IV SCH ×2 (16:30→21:15)
--- NOTE | 2018-07-21 17:12 | US ---
EXAMINATION TYPE: US gallbladder DATE OF EXAM: 07/21/2018 COMPARISON: CLINICAL HISTORY: Evaluate liver and common bile duct. hx of liver cancer per patient. Jaundice. No pain. EXAM MEASUREMENTS: Liver Length: 20.6 cm Gallbladder Wall: 0.4 cm CHD: 0.4 cm Right Kidney: 9.9 x 3.8 x 5.8 cm Limited visualization due to overlying bowel gas Pancreas: Not well visualized. Appears echogenic in appearance. Possible hypoechoic lesion vs surro unding lymph node - 2.1 x 2.6 x 1.3 cm Liver: Heterogenous and enlarged in size. Multiple lesions visualized. Largest appears irregular sh aped with internal debris and posterior enhancement= 7.4 x 5.0 x 5.8 cm Gallbladder: Wall thickening. No stones visualized. Evidence for sonographic Chase's sign: neg CBD: Obscured by overlying bowel gas CHD: portion seen appears wnl Right Kidney: possible upper pole lateral cystic cluster - 1.5 x 0.9 x 1.1 cm. Lower pole not visua lized. Free fluid seen adjacent to liver IMPRESSION: No gallstones. Ascites. Extensive heterogeneity in the liver consistent with tumor. Mild gallbladder wall thickening. Common bile duct was not identified. I see no dilated intrahepatic bile ducts.
[2018-07-21] MEDS ORDERED: MELATONIN 5 MG TABLET PO PRN (21:50)
[2018-07-22] MEDS: PANTOPRAZOLE 40 MG TABLET PO SCH (06:51)
--- NOTE | 2018-07-22 08:28 | ECHOF ---
Referral Reason:Heart Failure MEASUREMENTS -------- HEIGHT: 147.3 cm WEIGHT: 77.1 kg BP: 112/58 IVSd: 1.1 cm (0.6 - 1.1) LVIDd: 4.9 cm (3.9 - 5.3) LVPWd: 1.1 cm (0.6 - 1.1) IVSs: 1.1 cm LVIDs: 3.8 cm LVPWs: 1.2 cm RVIDd: 2.5 cm (< 3.3) LAESV Index (A-L): 34.87 ml/m MV E Mariusz: 0.38 m/s MV DecT: 276 ms MV A Mariusz: 1.06 m/s MV E/A Ratio: 0.36 AV maxP.29 mmHg AV meanP.03 mmHg RAP: 5.00 mmHg RVSP: 11.81 mmHg FINDINGS -------- Atrial fibrillation. This was a technically adequate study. The left ventricular size is normal. There is borderline concentric left ventricular hypertrophy. Overall left ventricular systolic function is normal with, an EF between 55 - 60 %. The right ventricle is normal in size and function. LA is moderately dilated 34-39 ml/m2 The right atrium is normal in size. There is moderate aortic valve sclerosis. There is mild aortic regurgitation. There is moderate a ortic stenosis present. Peak/mean gradient across the Aortic Valve is 61.29mmHg / 36.03mmHg. The mitral valve leaflets are mildly thickened. Mild mitral annular calcification present. There is trace to mild mitral regurgitation. Trace tricuspid regurgitation present. Right ventricular systolic pressure is normal at < 35 mmHg. There is no evidence of pulmonary hypertension. The pulmonic valve was not well visualized. The aortic root size is normal. IVC Not well visulized. There is a small pericardial effusion located near the left ventricle. Large Pleural Effusion. CONCLUSIONS -------- 1. Atrial fibrillation. 2. This was a technically adequate study. 3. The left ventricular size is normal. 4. There is borderline concentric left ventricular hypertrophy. 5. Overall left ventricular systolic function is normal with, an EF between 55 - 60 %. 6. LA is moderately dilated 34-39 ml/m2 7. The right atrium is normal in size. 8. There is moderate aortic valve sclerosis. 9. There is mild aortic regurgitation. 10. There is moderate aortic stenosis present. 11. Peak/mean gradient across the Aortic Valve is 61.29mmHg / 36.03mmHg. 12. The mitral valve leaflets are mildly thickened. 13. Mild mitral annular calcification present. 14. There is trace to mild mitral regurgitation. 15. Trace tricuspid regurgitation present. 16. Right ventricular systolic pressure is normal at < 35 mmHg. 17. There is no evidence of pulmonary hypertension. 18. The pulmonic valve was not well visualized. 19. The aortic root size is normal. 20. IVC Not well visulized. 21. There is a small pericardial effusion located near the left ventricle. 22. Large Pleural Effusion. TELESALES SUPERVISOR: Aubrey Clancy RDCS
[2018-07-22 08:31] LABS: Albumin 2.5 g/dL (3.5-5.0); Bilirubin, Conjugated 4.8 mg/dL (0.0-0.3); Bilirubin, Delta 4.4 mg/dL (0.0-0.2); Bilirubin,Unconjugated 1.4 mg/dL (0.0-1.1); Total Bilirubin 10.6 mg/dL (0.2-1.3); Total Protein 6.2 g/dL (6.3-8.2)
[2018-07-22] MEDS ORDERED: LOSARTAN 50 MG TAB PO SCH (09:00)
[2018-07-22] MEDS ORDERED: amLODIPine 5 MG TAB PO SCH (09:00)
[2018-07-22] MEDS ORDERED: AMLODIPINE BES PO SCH (09:00)
[2018-07-22] MEDS ORDERED: SULFAMETHOX-TMP 800-160MG 1 EACH TAB PO SCH (09:00)
[2018-07-22] MEDS ORDERED: OLMESARTAN MED PO SCH (09:00)
--- NOTE | 2018-07-22 10:30 | P.CONS ---
History of Present Illness - Reason for Consult Consult date: 07/21/18 Metastatic prostate cancer. Progressive weakness - History of Present Illness The patient is a 78-year-old white male, well known to our service. He was initially diagnosed with prostate cancer in 2008, and treated with radical prostatectomy, followed by radiation. He completed treatment in early 2009. The patient then remained disease-free until about 11/01, when he developed hematuria. At that time was found to have a bladder mass, and underwent radical surgery with resection including creation of a colostomy and urostomy, at [facility], in 12/02. Recurrent malignancy was consistent with prostate cancer. The pt has progressed through multiple lines of therapy. These include LHRH agonist, Xtandi, Taxotere , Cabazitaxel and Mitoxantrone, as well as SEALER OPERATOR 16 and Carboplatin ( which was given due to concerns that his cancer may be of neuro endocrine origin) Most recently he has been on targeted therapy with Cabozantinib. The patient has been taking Cabozantinib regularly, till about a week prior to admission. At that time he discontinued it, as he was having increased diarrhea, as well as nausea, decreased appetite and indigestion. Despite stopping the medication, he only had minor improvement in his symptoms, transiently. Diarrhea did improve, the other GI symptoms continued to persist and progress. He also developed increasing swelling in his lower extremities. In addition, the patient reported some shortness of breath, though he denied any orthopnea or chest pain. His family had called the office because of his progressive symptoms. The patient was reluctant to come into the hospital, but ultimately agreed to after repeated urging. Case was discussed in detail with the emergency room physician. The patient's labs showed marked increase in his bilirubin to 11, as well as increase in his creatinine in the 1.7 range. Labs done in the office in mid 05/07, had shown a normal bilirubin, as well as normal creatinine of 0.9. Chest x-ray showed small bilateral pleural effusions. The patient was therefore admitted for further management. Review of Systems Constitutional: Reports anorexia, Reports fatigue, Reports lethargy, Reports weakness Eyes: denies blurred vision, denies pain Ears: deny: decreased hearing, ear discharge, earache, tinnitus Ears, nose, mouth and throat: Denies headache, Denies sore throat Cardiovascular: Reports dyspnea on exertion, Reports leg edema Respiratory: Reports dyspnea Gastrointestinal: Reports abdominal pain, Reports diarrhea, Reports dyspepsia, Reports nausea Genitourinary: Reports as per HPI Musculoskeletal: Reports muscle weakness Integumentary: Denies pruritus, Denies rash Neurological: Reports weakness Psychiatric: Denies anxiety, Denies depression Endocrine: Reports fatigue, Reports weight change Hematologic/Lymphatic: Reports as per HPI Past Medical History Past Medical History: Atrial Fibrillation, Cancer, Hypertension, Prostate Disorder, Skin Disorder Additional Past Medical History / Comment(s): metastatic prostate cancer -found also in bladder and rectal CA, completed chemo/radiation, arthritis, rt ear tinnitus. rx rt leg 37 years ago and 2016 rt femur fx(sx) History of Any Multi-Drug Resistant Organisms: None Reported Past Surgical History: Bladder Surgery, Hernia Repair, Prostate Surgery Additional Past Surgical History / Comment(s): prostate removed , bladder and rectum sx pt now has ileostomy & urostomy; hernia repair; rotator cuff;medi port rt chest. FX Leg 35 yrs ago, 2016 orif rt femur/plate d/t pathelogical fx Past Anesthesia/Blood Transfusion Reactions: No Reported Reaction Additional Past Anesthesia/Blood Transfusion Reaction / Comm: blood transfusion no reaction Smoking Status: Former smoker - Past Family History Brother(s) Family Medical History: Cancer Mother Additional Family Medical History / Comment(s): from complications from a blood transfusion Father Additional Family Medical History / Comment(s): in motorcycle accident Medications and Allergies Home Medications Medication Instructions Recorded Confirmed Type amLODIPine BES/OLMESARTAN MED 1 tab PO DAILY 01/09/15 07/21/18 History [Rica 5-40 mg Tablet] Cabozantinib S-Malate [Cabometyx] 20 mg PO DAILY 07/21/18 07/21/18 History Cholecalciferol [Vitamin D3] 1,000 unit PO DAILY 07/21/18 07/21/18 History Pantoprazole Sodium [Protonix] 40 mg PO DAILY 07/21/18 07/21/18 History Sulfamethox-Tmp 800-160Mg [Bactrim 1 tab PO Q12HR 07/21/18 07/21/18 History DS 800-160 mg] Allergies Allergy/AdvReac Type Severity Reaction Status Date / Time hydromorphone HCl Allergy Confusion Verified 07/21/18 15:12 [From Dilaudid] Mushroom Allergy Swelling Verified 07/21/18 15:12 Physical Exam Vitals: Vital Signs Temp Pulse Resp BP Pulse Ox 07/21/18 20:00 108 H 21 106/64 97 07/21/18 19:00 108 H 15 103/69 07/21/18 18:38 110 H 18 103/69 98 07/21/18 17:02 79 20 110/62 98 07/21/18 15:07 98 F 112 H 20 108/95 96 07/21/18 13:59 98.1 F 52 L 20 126/89 99 Intake and Output 07/21/18 07/21/18 07/21/18 06:59 14:59 22:59 Other: Weight 77.337 kg - Constitutional General appearance: no acute distress - EENT Eyes: scleral icterus ENT: hearing grossly normal, normal oropharynx - Neck Neck: no lymphadenopathy Thyroid: bilateral: normal size - Respiratory Respiratory: bilateral: diminished - Cardiovascular Rhythm: regular Heart sounds: normal: S1, S2 - Gastrointestinal General gastrointestinal: normal bowel sounds, soft - Integumentary Integumentary: jaundiced - Neurologic Neurologic: CNII-XII intact - Musculoskeletal Bilateral lower extremity edema Musculoskeletal: generalized weakness, strength equal bilaterally - Psychiatric Psychiatric: A&O x's 3, appropriate affect Results CBC & Chem 7: 07/21/18 14:35 07/22/18 07:09 Labs: Abnormal Lab Results - Last 24 Hours (Table) 07/21/18 07/21/18 07/21/18 Range/Units 14:05 14:35 15:15 RBC 2.98 L (4.30-5.90) m/uL Hgb 9.2 L (13.0-17.5) gm/dL Hct 30.2 L (39.0-53.0) % MCV 101.3 H (80.0-100.0) fL MCHC 30.5 L (31.0-37.0) g/dL RDW 18.2 H (11.5-15.5) % Lymphocytes # 0.5 L (1.0-4.8) k/uL PT 13.2 H (9.0-12.0) sec INR 1.3 H (<1.2) Sodium (137-145) mmol/L Chloride (98-107) mmol/L Carbon Dioxide (22-30) mmol/L BUN (9-20) mg/dL Creatinine (0.66-1.25) mg/dL Calcium (8.4-10.2) mg/dL Total Bilirubin (0.2-1.3) mg/dL AST (17-59) U/L Alkaline Phosphatase (38-126) U/L Albumin (3.5-5.0) g/dL Urine Protein 1+ H (Negative) Urine Blood Moderate H (Negative) Urine Bilirubin 3+ H (Negative) Urine RBC 23 H (0-5) /hpf Hyaline Casts 88 H (0-2) /lpf Urine Mucus Rare H (None) /hpf 07/21/18 Range/Units 15:15 RBC (4.30-5.90) m/uL Hgb (13.0-17.5) gm/dL Hct (39.0-53.0) % MCV (80.0-100.0) fL MCHC (31.0-37.0) g/dL RDW (11.5-15.5) % Lymphocytes # (1.0-4.8) k/uL PT (9.0-12.0) sec INR (<1.2) Sodium 135 L (137-145) mmol/L Chloride 108 H (98-107) mmol/L Carbon Dioxide 17 L (22-30) mmol/L BUN 23 H (9-20) mg/dL Creatinine 1.71 H (0.66-1.25) mg/dL Calcium 7.2 L (8.4-10.2) mg/dL Total Bilirubin 11.0 H (0.2-1.3) mg/dL AST 111 H (17-59) U/L Alkaline Phosphatase 331 H (38-126) U/L Albumin 2.7 L (3.5-5.0) g/dL Urine Protein (Negative) Urine Blood (Negative) Urine Bilirubin (Negative) Urine RBC (0-5) /hpf Hyaline Casts (0-2) /lpf Urine Mucus (None) /hpf Microbiology - Last 24 Hours (Table) 07/21/18 14:05 Urine Culture - Preliminary Urine,Suprapubic Chest x-ray: report reviewed US - abdomen: report reviewed Assessment and Plan (1) Liver failure Narrative/Plan: The patient is presenting with marked increase in bilirubin, into the 11 range, from normal just 2-3 months ago. The patient does have known prior liver metastases, but this clinical presentation is highly sensitive of progressive malignancy in the liver. Ideally, a computed tomography scan or MRI with contrast should be performed. However the patient's elevated creatinine precludes the use of contrast without which an accurate picture cannot be obtained. An ultrasound of the liver was ordered to rule out any obstructive symptoms, which could potentially be reversible. This showed widespread liver metastasis, with no evidence of intrahepatic biliary dilation. CBD was not well visualized. However, so far, parenchymal progression of his liver disease appears to be more likely. To further confirm, I will order bilirubin fractionation. Current Visit: Yes Status: Acute Code(s): K72.90 - HEPATIC FAILURE, UNSPECIFIED WITHOUT COMA SNOMED Code(s): 89266201 (2) Congestive heart failure Narrative/Plan: On surgical evaluation, I feel that congestive heart failure is less likely. The patient has no orthopnea, and no evidence of congestion on chest x-ray. He has small bilateral pleural effusion and no crackles on exam or JVD. He was laying quite comfortably in bed, almost flat. He does have lower extremity edema, but that as well as his small pleural effusions are more likely due to third spacing from liver decompensation. I suspect that the patient is actually intravascularly depleted due to third spacing. Echocardiogram and was normal. I will therefore start the patient on gentle hydration. Current Visit: Yes Status: Acute Code(s): I50.9 - HEART FAILURE, UNSPECIFIED SNOMED Code(s): 84055616 (3) Prostate cancer Narrative/Plan: The patient has metastatic disease, with therapeutic and diagnostic circumstances as noted in the HPI. Resuming that the current clinical impression of progressive disease in the liver is correct, the patient is obviously failing his current therapy. He has progressed through multiple lines of therapy in the past. Therefore at this time options for further treatment would be quite limited. This was discussed with the patient. He was agreeable to DO NOT RESUSCITATE, for which order will be placed. I will discuss the case with Dr. Mcdonald. If we do not have any appropriate additional systemic therapy to offer, then comfort care will be discussed Current Visit: No Status: Acute Code(s): C61 - MALIGNANT NEOPLASM OF PROSTATE SNOMED Code(s): 101126479 (4) Acute kidney injury Narrative/Plan: At this time this is felt to be more likely prerenal, due to third spacing from liver decompensation. Gentle hydration will be initiated Current Visit: Yes Status: Acute Code(s): N17.9 - ACUTE KIDNEY FAILURE, UNSPECIFIED SNOMED Code(s): 93304436
--- NOTE | 2018-07-22 11:47 | P.HPIM ---
History of Present Illness H&P Date: 07/22/18 Chief Complaint: fatigue and dyspnea This is a 78-year-old male, patient of Dr. Almeida. He has a medical history of prostate cancer that was diagnosed in 2008 status post prostatectomy with radiation treatments. Patient was in remission until 2014 when he developed hematuria, at that time he was found to have a bladder mass and underwent resection with colostomy and urostomy. He is receiving current therapy with Cabozantinib and sees oncology on regular basis. Patient reports about a week ago he discontinued the Cabozantinib due to diarrhea, nausea, and vomiting. He did call his oncologist office who advised him to go to the emergency room to be evaluated. Patient's lab revealed hemoglobin 9.2, BUN 28, creatinine 1.91, total bilirubin 10.6, alk phos 334. Ultrasound showed no gallstones, ascites, extensive heterogenicity in the liver, consistent with tumor, and mild gallbladder wall thickening. Echocardiogram revealed atrial fibrillation, borderline left ventricular hypertrophy, ejection fraction 55-60% , moderate aortic stenosis, mild aortic regurgitation, no evidence of pulmonary hypertension, large pleural effusion. Chest x-ray showed atelectasis and effusions. Cardiology consulted, as well as nephrology and oncology. Review of Systems Constitutional: Reports fatigue, Reports weakness, Denies chills, Denies fever Cardiovascular: Denies chest pain, Denies orthopnea, Denies palpitations, Denies syncope Respiratory: Reports dyspnea, Denies cough, Denies hemoptysis, Denies pain, Denies wheezing Gastrointestinal: Reports diarrhea, Reports loss of appetite, Reports nausea, Reports vomiting, Denies abdominal pain, Denies constipation, Denies indigestion Genitourinary: Denies flank pain, Denies hematuria, Denies urinary frequency, Denies urinary hesitancy, Denies urinary retention Musculoskeletal: Reports muscle weakness, Denies atrophy, Denies myalgias, Denies neck pain, Denies neck stiffness Integumentary: Reports darkening of skin, Denies pruritus, Denies rash, Denies wounds Neurological: Reports weakness, Denies confusion, Denies headaches, Denies paralysis, Denies paresthesias, Denies seizures, Denies syncope, Denies visual changes Psychiatric: Denies anxiety, Denies confusion, Denies insomnia, Denies irritability Endocrine: Reports fatigue, Denies nocturia, Denies palpitations Past Medical History Past Medical History: Atrial Fibrillation, Cancer, Hypertension, Prostate Disorder, Skin Disorder Additional Past Medical History / Comment(s): metastatic prostate cancer -found also in bladder and rectal CA, completed chemo/radiation, arthritis, rt ear tinnitus. rx rt leg 37 years ago and 2016 rt femur fx(sx) History of Any Multi-Drug Resistant Organisms: None Reported Past Surgical History: Bladder Surgery, Hernia Repair, Prostate Surgery Additional Past Surgical History / Comment(s): prostate removed , bladder and rectum sx pt now has ileostomy & urostomy; hernia repair; rotator cuff;medi port rt chest. FX Leg 35 yrs ago, 2016 orif rt femur/plate d/t pathelogical fx Past Anesthesia/Blood Transfusion Reactions: No Reported Reaction Additional Past Anesthesia/Blood Transfusion Reaction / Comment(s): blood transfusion no reaction Smoking Status: Former smoker - Past Family History Brother(s) Family Medical History: Cancer, Myocardial Infarction ([place]) Mother Additional Family Medical History / Comment(s): from complications from a blood transfusion Father Additional Family Medical History / Comment(s): in motorcycle accident Medications and Allergies Home Medications Medication Instructions Recorded Confirmed Type amLODIPine BES/OLMESARTAN MED 1 tab PO DAILY 01/09/15 07/21/18 History [Rica 5-40 mg Tablet] Cabozantinib S-Malate [Cabometyx] 20 mg PO DAILY 07/21/18 07/21/18 History Cholecalciferol [Vitamin D3] 1,000 unit PO DAILY 07/21/18 07/21/18 History Pantoprazole Sodium [Protonix] 40 mg PO DAILY 07/21/18 07/21/18 History Sulfamethox-Tmp 800-160Mg [Bactrim 1 tab PO Q12HR 07/21/18 07/21/18 History DS 800-160 mg] Allergies Allergy/AdvReac Type Severity Reaction Status Date / Time hydromorphone HCl Allergy Confusion Verified 07/21/18 15:12 [From Dilaudid] Mushroom Allergy Swelling Verified 07/21/18 15:12 Physical Exam Vitals: Vital Signs Temp Pulse Pulse Resp BP BP Pulse Ox 07/22/18 09:10 103 H 07/22/18 09:08 98.2 F 103 H 18 89/63 97 02/02/19 04:00 98.4 F 88 18 91/55 96 07/22/18 00:00 98.1 F 104 H 18 92/54 95 07/21/18 20:20 97.6 F 88 18 106/65 95 07/21/18 20:00 108 H 21 106/64 97 07/21/18 19:00 108 H 15 103/69 07/21/18 18:38 110 H 18 103/69 98 07/21/18 17:02 79 20 110/62 98 07/21/18 15:07 98 F 112 H 20 108/95 96 07/21/18 13:59 98.1 F 52 L 20 126/89 99 Intake and Output 07/21/18 07/22/18 07/22/18 22:59 06:59 14:59 Intake Total 140 Balance 140 Intake: Oral 140 Other: # Voids 1 - Constitutional General appearance: cooperative, no acute distress - EENT Eyes: EOMI, PERRLA, scleral icterus ENT: hearing grossly normal, normal oropharynx - Neck Neck: no lymphadenopathy, normal ROM, no stridor, no thyromegaly Thyroid: bilateral: normal size, negative: firm, nodule - Respiratory Respiratory: bilateral: CTA, negative: dullness, rales, rhonchi, wheezing - Cardiovascular Bilateral lower extremity edema Rhythm: irregularly irregular Heart sounds: normal: S1, S2 - Gastrointestinal Colostomy and urostomy General gastrointestinal: no distended, normal bowel sounds, soft, no tenderness - Integumentary Integumentary: jaundiced - Neurologic Neurologic: CNII-XII intact - Musculoskeletal Musculoskeletal: generalized weakness, strength equal bilaterally, no right sided weakness, no left sided weakness - Psychiatric Psychiatric: A&O x's 3 Results CBC & Chem 7: 07/21/18 14:35 07/22/18 07:09 Labs: Abnormal Lab Results - Last 24 Hours (Table) 07/21/18 07/21/18 07/21/18 Range/Units 14:05 14:35 15:15 RBC 2.98 L (4.30-5.90) m/uL Hgb 9.2 L (13.0-17.5) gm/dL Hct 30.2 L (39.0-53.0) % MCV 101.3 H (80.0-100.0) fL MCHC 30.5 L (31.0-37.0) g/dL RDW 18.2 H (11.5-15.5) % Lymphocytes # 0.5 L (1.0-4.8) k/uL PT 13.2 H (9.0-12.0) sec INR 1.3 H (<1.2) Sodium (137-145) mmol/L Chloride (98-107) mmol/L Carbon Dioxide (22-30) mmol/L BUN (9-20) mg/dL Creatinine (0.66-1.25) mg/dL Glucose (74-99) mg/dL Calcium (8.4-10.2) mg/dL Total Bilirubin (0.2-1.3) mg/dL Conjugated Bilirubin (0.0-0.3) mg/dL Unconjugated Bilirubin (0.0-1.1) mg/dL Delta Bilirubin (0.0-0.2) mg/dL AST (17-59) U/L Alkaline Phosphatase (38-126) U/L Total Protein (6.3-8.2) g/dL Albumin (3.5-5.0) g/dL Urine Protein 1+ H (Negative) Urine Blood Moderate H (Negative) Urine Bilirubin 3+ H (Negative) Urine RBC 23 H (0-5) /hpf Hyaline Casts 88 H (0-2) /lpf Urine Mucus Rare H (None) /hpf 07/21/18 07/22/18 Range/Units 15:15 07:09 RBC (4.30-5.90) m/uL Hgb (13.0-17.5) gm/dL Hct (39.0-53.0) % MCV (80.0-100.0) fL MCHC (31.0-37.0) g/dL RDW (11.5-15.5) % Lymphocytes # (1.0-4.8) k/uL PT (9.0-12.0) sec INR (<1.2) Sodium 135 L 136 L (137-145) mmol/L Chloride 108 H 108 H (98-107) mmol/L Carbon Dioxide 17 L 18 L (22-30) mmol/L BUN 23 H 28 H (9-20) mg/dL Creatinine 1.71 H 1.91 H (0.66-1.25) mg/dL Glucose 102 H (74-99) mg/dL Calcium 7.2 L 7.0 L (8.4-10.2) mg/dL Total Bilirubin 11.0 H 10.6 H (0.2-1.3) mg/dL Conjugated Bilirubin 4.8 H (0.0-0.3) mg/dL Unconjugated Bilirubin 1.4 H (0.0-1.1) mg/dL Delta Bilirubin 4.4 H (0.0-0.2) mg/dL AST 111 H 114 H (17-59) U/L Alkaline Phosphatase 331 H 334 H (38-126) U/L Total Protein 6.2 L (6.3-8.2) g/dL Albumin 2.7 L 2.5 L (3.5-5.0) g/dL Urine Protein (Negative) Urine Blood (Negative) Urine Bilirubin (Negative) Urine RBC (0-5) /hpf Hyaline Casts (0-2) /lpf Urine Mucus (None) /hpf Microbiology - Last 24 Hours (Table) 07/21/18 14:05 Urine Culture - Preliminary Urine,Suprapubic Thrombosis Risk Factor Assmnt - Choose All That Apply Each Factor Represents 1 point: Swollen legs (current) Each Risk Factor Represents 3 Points: Age 75 years or older Thrombosis Risk Factor Assessment Total Risk Factor Score: 4 Thrombosis Risk Factor Assessment Level: Moderate Risk Assessment and Plan Plan: 1: Prostate cancer with metastasis disease with liver metastasis and hepatic failure: Ultrasound showed widespread liver metastasis, oncology on consult 2. Congestive heart failure: Cardiology on consult, echocardiogram resulted 3. Acute kidney injury secondary to dehydration from poor oral intake. Will continue gentle hydration with normal saline at 50 ml per hour, nephrology on consult 4. Hypertension: Continue with Norvasc 5 mg daily as well as Cozaar 150 mg daily 5. Urinary tract infection: We'll started on Bactrim as outpatient will continue, urine cultures are pending 6. Paroxysmal atrial fibrillation: Currently rate controlled 6. GI, DVT prophylaxis: Continue Protonix, SEDs The above impression and plan of care have been discussed and directed by signing physician. Isabella Donnelly nurse practitioner acting as scribe for signing physician.
--- NOTE | 2018-07-22 11:59 | P.CRDCN ---
History of Present Illness Consult date: 07/22/18 Requesting physician: Anastacio Medina Consult reason: congestive heart failure Chief complaint: Diarrhea History of present illness: Is is a 78-year-old gentleman with known history of prostate cancer treated with radical prostatectomy followed by radiation, treatment was completed in 2009, apparently in 2014 he was found to have a bladder mass and underwent radical surgery with resection including a colostomy and year ostomy at [facility]. According to oncology's notes, recurrent malignancy was present and patient is going through many lines of different therapies. Most recently he has been on targeted therapy with Cabozantinib. Patient does have a known history of paroxysmal atrial fibrillation as well as hypertension. Patient presents to the hospital on this admission with symptoms of increased diarrhea with associated nausea, decreased appetite. Cardiology consultation was requested for congestive cardiac failure. According to the patient, he has noticed himself to be more short of breath than usual and over the past few weeks has been retaining a significant amount of bilateral peripheral edema chest x-ray on admission here showed probable basilar atelectasis and effusions. Ultrasound of the gallbladder does not reveal any gallstones, positive ascites, extensive heterogeneous in the liver consistent with a tumor. Mild gallbladder wall thickening. EKG shows atrial fibrillation with controlled ventricular response. Echocardiogram with Doppler study revealed an ejection fraction of 55-60%, moderate aortic valve sclerosis moderate aortic stenosis small pericardial effusion with large pleural effusion.. Blood pressure 90/50 with a heart rate in the 80s, 96% on room air. White blood cell count 4.0, hemoglobin 9.2, platelet count 162. Sodium 136, potassium 4.0, BUN 28 and creatinine 1.9 on admission creatinine was 1.7. Calcium 7.2 total bilirubin 11 AST 114 ALT 47 alk phos 334, conjugated bilirubin 4.8 on conjugated 1.4 delta bilirubin 4.4 total protein 6.2 of human 2.5. BNP level 7610. At the time of my examination this morning, patient feels extremely weak , mild shortness of breath. Mild abdominal pain. Past Medical History Past Medical History: Atrial Fibrillation, Cancer, Hypertension, Prostate Disorder, Skin Disorder Additional Past Medical History / Comment(s): metastatic prostate cancer -found also in bladder and rectal CA, completed chemo/radiation, arthritis, rt ear tinnitus. rx rt leg 37 years ago and 2016 rt femur fx(sx) History of Any Multi-Drug Resistant Organisms: None Reported Past Surgical History: Bladder Surgery, Hernia Repair, Prostate Surgery Additional Past Surgical History / Comment(s): prostate removed , bladder and rectum sx pt now has ileostomy & urostomy; hernia repair; rotator cuff;medi port rt chest. FX Leg 35 yrs ago, 2016 orif rt femur/plate d/t pathelogical fx Past Anesthesia/Blood Transfusion Reactions: No Reported Reaction Additional Past Anesthesia/Blood Transfusion Reaction / Comment(s): blood transfusion no reaction Smoking Status: Former smoker - Past Family History Brother(s) Family Medical History: Cancer Mother Additional Family Medical History / Comment(s): from complications from a blood transfusion Father Additional Family Medical History / Comment(s): in motorcycle accident Medications and Allergies Home Medications Medication Instructions Recorded Confirmed Type amLODIPine BES/OLMESARTAN MED 1 tab PO DAILY 01/09/15 07/21/18 History [Rica 5-40 mg Tablet] Cabozantinib S-Malate [Cabometyx] 20 mg PO DAILY 07/21/18 07/21/18 History Cholecalciferol [Vitamin D3] 1,000 unit PO DAILY 07/21/18 07/21/18 History Pantoprazole Sodium [Protonix] 40 mg PO DAILY 07/21/18 07/21/18 History Sulfamethox-Tmp 800-160Mg [Bactrim 1 tab PO Q12HR 07/21/18 07/21/18 History DS 800-160 mg] Allergies Allergy/AdvReac Type Severity Reaction Status Date / Time hydromorphone HCl Allergy Confusion Verified 07/21/18 15:12 [From Dilaudid] Mushroom Allergy Swelling Verified 07/21/18 15:12 Physical Exam Vitals: Vital Signs Temp Pulse Pulse Resp BP BP Pulse Ox 07/22/18 09:10 103 H 07/22/18 09:08 98.2 F 103 H 18 89/63 97 07/22/18 04:00 98.4 F 88 18 91/55 96 07/22/18 00:00 98.1 F 104 H 18 92/54 95 07/21/18 20:20 97.6 F 88 18 106/65 95 07/21/18 20:00 108 H 21 106/64 97 07/21/18 19:00 108 H 15 103/69 07/21/18 18:38 110 H 18 103/69 98 07/21/18 17:02 79 20 110/62 98 07/21/18 15:07 98 F 112 H 20 108/95 96 07/21/18 13:59 98.1 F 52 L 20 126/89 99 Intake and Output 07/21/18 07/22/18 07/22/18 22:59 06:59 14:59 Intake Total 140 Balance 140 Intake: Oral 140 Other: # Voids 1 PHYSICAL EXAMINATION: GENERAL: 78-year-old gentleman, appears quite weak and frail, jaundiced, in no acute distress at the time of my examination HEENT: Head is atraumatic, normocephalic. Pupils equal, round. Sclera anicteric. Conjunctiva jaundiced . Mucous membranes of the mouth are moist. Neck is supple. There is no elevated jugular venous pressure. No carotid bruit is heard. HEART EXAMINATION: Heart S1 and S2 irregularly irregular a systolic murmur is heard CHEST EXAMINATION: Lungs reveal diminished air entry bilaterally ABDOMEN: Soft, nontender. Bowel sounds are heard. No organomegaly noted. EXTREMITIES: 2+ peripheral pulses with 2+ evidence of peripheral edema and no calf tenderness noted. NEUROLOGIC patient is awake, alert and oriented 3 . . Results 07/21/18 14:35 07/22/18 07:09 Cardiac Enzymes 07/21/18 07/22/18 Range/Units 15:15 07:09 AST 111 H 114 H (17-59) U/L Coagulation 07/21/18 Range/Units 15:15 PT 13.2 H (9.0-12.0) sec APTT 29.2 (22.0-30.0) sec CBC 07/21/18 Range/Units 14:35 WBC 4.0 (3.8-10.6) k/uL RBC 2.98 L (4.30-5.90) m/uL Hgb 9.2 L (13.0-17.5) gm/dL Hct 30.2 L (39.0-53.0) % Plt Count 162 (150-450) k/uL Comprehensive Metabolic Panel 07/21/18 07/22/18 Range/Units 15:15 07:09 Sodium 135 L 136 L (137-145) mmol/L Potassium 4.1 4.0 (3.5-5.1) mmol/L Chloride 108 H 108 H (98-107) mmol/L Carbon Dioxide 17 L 18 L (22-30) mmol/L BUN 23 H 28 H (9-20) mg/dL Creatinine 1.71 H 1.91 H (0.66-1.25) mg/dL Glucose 98 102 H (74-99) mg/dL Calcium 7.2 L 7.0 L (8.4-10.2) mg/dL Unconjugated Bilirubin 1.4 H (0.0-1.1) mg/dL AST 111 H 114 H (17-59) U/L ALT 44 47 (21-72) U/L Alkaline Phosphatase 331 H 334 H (38-126) U/L Total Protein 6.4 6.2 L (6.3-8.2) g/dL Albumin 2.7 L 2.5 L (3.5-5.0) g/dL Current Medications Generic Name Dose Route Start Last Admin Trade Name Freq PRN Reason Stop Dose Admin Amlodipine Besylate 5 mg 07/22/18 09:00 07/22/18 09:08 Norvasc PO Not Given DAILY ANGELIQUE Cholecalciferol 1,000 unit 07/22/18 12:00 Vitamin D3 PO 1200 ANGELIQUE Sodium Chloride 1,000 mls @ 50 mls/hr 07/21/18 21:15 07/21/18 22:23 Saline 0.9% IV Not Given .Q20H ANGELIQUE Losartan Potassium 150 mg 07/22/18 09:00 07/22/18 09:08 Cozaar PO Not Given DAILY ANGELIQUE Melatonin 5 mg 07/21/18 21:50 07/21/18 22:00 Melatonin PO 5 mg HS PRN Administration Insomnia Pantoprazole Sodium 40 mg 07/22/18 07:30 07/22/18 06:51 Protonix PO 40 mg AC-BRKFST ANGELIQUE Administration Trimethoprim/Sulfamethoxazole 1 each 07/22/18 09:00 07/22/18 09:04 Bactrim Ds PO 07/23/18 21:01 1 each Q12HR ANGELIQUE Administration Intake and Output 07/21/18 07/22/18 07/22/18 22:59 06:59 14:59 Intake Total 140 Balance 140 Intake: Oral 140 Other: # Voids 1 07/21/18 14:35 07/22/18 07:09 EKG Interpretations (text) EKG shows atrial fibrillation with a controlled ventricular response. Assessment and Plan Plan: Assessment and plan #1 symptoms of persistent diarrhea, abdominal discomfort and vomiting. Marked increase in bilirubin as compared with a couple of months ago in a patient with known liver metastases #2 paroxysmal atrial fibrillation, not a candidate for anticoagulation #3 history of prostate cancer, bladder CA, rectal CA #4 hypertension #5 congestive heart failure diastolic acute on chronic Plan Cardiology's perspective, we would recommend diuresing the patient with some IV Lasix monitoring renal function closely. He is not a candidate for anticoagulation. Continue Norvasc and losartan for blood pressure management. DNP note has been reviewed, I agree with a documented findings and plan of care. Patient was seen and examined.
[2018-07-22] MEDS: CHOLECALCIFEROL 1,000 UNIT TAB PO SCH (12:49)
--- NOTE | 2018-07-22 12:55 | P.NPCON ---
History of Present Illness - Reason for Consult Consult date: 07/22/18 acute renal failure - Chief Complaint Fatigue - History of Present Illness Coming to the hospital with fatigue and diarrhea. He has history of metastatic prostate cancer currently on chemotherapy. Nephrology was consulted for acute kidney injury. Baseline creatinine is 0.9. On admission creatinine was 1.7 and 1.9 today. He was hypotensive with a systolic blood pressure of 70-80. And continues to take his losartan 150 and amlodipine. While in the hospital he was continued on his medications. No recent contrast studies. No NSAID use. He was also getting Bactrim as well. Review of Systems Constitutional: Reports as per HPI Past Medical History Past Medical History: Atrial Fibrillation, Cancer, Hypertension, Prostate Disorder, Skin Disorder Additional Past Medical History / Comment(s): metastatic prostate cancer -found also in bladder and rectal CA, completed chemo/radiation, arthritis, rt ear tinnitus. rx rt leg 37 years ago and 2016 rt femur fx(sx) History of Any Multi-Drug Resistant Organisms: None Reported Past Surgical History: Bladder Surgery, Hernia Repair, Prostate Surgery Additional Past Surgical History / Comment(s): prostate removed , bladder and rectum sx pt now has ileostomy & urostomy; hernia repair; rotator cuff;medi port rt chest. FX Leg 35 yrs ago, 2016 orif rt femur/plate d/t pathelogical fx Past Anesthesia/Blood Transfusion Reactions: No Reported Reaction Additional Past Anesthesia/Blood Transfusion Reaction / Comment(s): blood transfusion no reaction Smoking Status: Former smoker - Past Family History Brother(s) Family Medical History: Cancer Mother Additional Family Medical History / Comment(s): from complications from a blood transfusion Father Additional Family Medical History / Comment(s): in motorcycle accident Medications and Allergies Home Medications Medication Instructions Recorded Confirmed Type amLODIPine BES/OLMESARTAN MED 1 tab PO DAILY 01/09/15 07/21/18 History [Rica 5-40 mg Tablet] Cabozantinib S-Malate [Cabometyx] 20 mg PO DAILY 07/21/18 07/21/18 History Cholecalciferol [Vitamin D3] 1,000 unit PO DAILY 07/21/18 07/21/18 History Pantoprazole Sodium [Protonix] 40 mg PO DAILY 07/21/18 07/21/18 History Sulfamethox-Tmp 800-160Mg [Bactrim 1 tab PO Q12HR 07/21/18 07/21/18 History DS 800-160 mg] Allergies Allergy/AdvReac Type Severity Reaction Status Date / Time hydromorphone HCl Allergy Confusion Verified 07/21/18 15:12 [From Dilaudid] Mushroom Allergy Swelling Verified 07/21/18 15:12 Physical Exam Vitals: Vital Signs Temp Pulse Pulse Resp BP BP Pulse Ox 07/22/18 09:10 103 H 07/22/18 09:08 98.2 F 103 H 18 89/63 97 07/22/18 04:00 98.4 F 88 18 91/55 96 07/22/18 00:00 98.1 F 104 H 18 92/54 95 07/21/18 20:20 97.6 F 88 18 106/65 95 07/21/18 20:00 108 H 21 106/64 97 07/21/18 19:00 108 H 15 103/69 07/21/18 18:38 110 H 18 103/69 98 07/21/18 17:02 79 20 110/62 98 07/21/18 15:07 98 F 112 H 20 108/95 96 07/21/18 13:59 98.1 F 52 L 20 126/89 99 Intake and Output 07/21/18 07/22/18 07/22/18 22:59 06:59 14:59 Intake Total 240 Balance 240 Intake: Oral 240 Other: # Voids 1 Lying in bed no acute distress S1-S2 heard Diminished breath sounds Edema Results - Lab Results Most recent lab results Calcium 7.0 mg/dL (8.4-10.2) L 07/22/18 07:09 07/21/18 14:35 07/22/18 07:09 Assessment and Plan Assessment: #1 nonoliguric acute kidney injury secondary to hemodynamic ATN with low blood pressures and also concomitant use of losartan and amlodipine. He was also on Bactrim that can cause interstitial nephritis and elevated creatinine. #2 metastatic prostate cancer #3 hypotension #4 edema #5 metabolic acidosis Plan: #1 continue with IV fluids, change normal saline to bicarb drip. #2 stop losartan and amlodipine including Bactrim #3 if antibiotics are needed consider changing to alternative than Bactrim #4 repeat labs in the morning #5 maintain systolic blood pressure more than 120. #6 avoid nephrotoxic agents and hypotensive episodes.
--- NOTE | 2018-07-22 13:11 | P.PN ---
Subjective Progress Note Date: 07/22/18 The patient states that he feels slightly better. He denies any diarrhea, or obvious bleeding. He continues to have significant jaundice. Mild nausea, and decreased appetite persist. No orthopnea noted. Objective - Vital Signs Vital signs: Vital Signs Temp 97.7 F 07/22/18 12:53 Pulse 100 07/22/18 12:53 Resp 18 07/22/18 12:53 BP 107/54 07/22/18 12:53 Pulse Ox 98 07/22/18 12:53 Intake & Output 07/21/18 07/22/18 07/22/18 18:59 06:59 18:59 Intake Total 240 Balance 240 Weight 77.337 kg Intake: Oral 240 Other: # Voids 1 - Constitutional General appearance: Present: no acute distress - EENT Eyes: Present: scleral icterus ENT: Present: hearing grossly normal - Respiratory Respiratory: bilateral: diminished - Cardiovascular Rhythm: regular Heart sounds: normal: S1, S2 - Gastrointestinal General gastrointestinal: Present: normal bowel sounds, soft - Integumentary Integumentary: Present: jaundiced - Neurologic Neurologic: Present: CNII-XII intact - Musculoskeletal Musculoskeletal: Present: generalized weakness, strength equal bilaterally - Psychiatric Psychiatric: Present: A&O x's 3, appropriate affect - Labs CBC & Chem 7: 07/21/18 14:35 07/22/18 07:09 Labs: Abnormal Lab Results - Last 24 Hours (Table) 07/21/18 07/21/18 07/21/18 Range/Units 14:05 14:35 15:15 RBC 2.98 L (4.30-5.90) m/uL Hgb 9.2 L (13.0-17.5) gm/dL Hct 30.2 L (39.0-53.0) % MCV 101.3 H (80.0-100.0) fL MCHC 30.5 L (31.0-37.0) g/dL RDW 18.2 H (11.5-15.5) % Lymphocytes # 0.5 L (1.0-4.8) k/uL PT 13.2 H (9.0-12.0) sec INR 1.3 H (<1.2) Sodium (137-145) mmol/L Chloride (98-107) mmol/L Carbon Dioxide (22-30) mmol/L BUN (9-20) mg/dL Creatinine (0.66-1.25) mg/dL Glucose (74-99) mg/dL Calcium (8.4-10.2) mg/dL Total Bilirubin (0.2-1.3) mg/dL Conjugated Bilirubin (0.0-0.3) mg/dL Unconjugated Bilirubin (0.0-1.1) mg/dL Delta Bilirubin (0.0-0.2) mg/dL AST (17-59) U/L Alkaline Phosphatase (38-126) U/L Total Protein (6.3-8.2) g/dL Albumin (3.5-5.0) g/dL Urine Protein 1+ H (Negative) Urine Blood Moderate H (Negative) Urine Bilirubin 3+ H (Negative) Urine RBC 23 H (0-5) /hpf Hyaline Casts 88 H (0-2) /lpf Urine Mucus Rare H (None) /hpf 07/21/18 07/22/18 Range/Units 15:15 07:09 RBC (4.30-5.90) m/uL Hgb (13.0-17.5) gm/dL Hct (39.0-53.0) % MCV (80.0-100.0) fL MCHC (31.0-37.0) g/dL RDW (11.5-15.5) % Lymphocytes # (1.0-4.8) k/uL PT (9.0-12.0) sec INR (<1.2) Sodium 135 L 136 L (137-145) mmol/L Chloride 108 H 108 H (98-107) mmol/L Carbon Dioxide 17 L 18 L (22-30) mmol/L BUN 23 H 28 H (9-20) mg/dL Creatinine 1.71 H 1.91 H (0.66-1.25) mg/dL Glucose 102 H (74-99) mg/dL Calcium 7.2 L 7.0 L (8.4-10.2) mg/dL Total Bilirubin 11.0 H 10.6 H (0.2-1.3) mg/dL Conjugated Bilirubin 4.8 H (0.0-0.3) mg/dL Unconjugated Bilirubin 1.4 H (0.0-1.1) mg/dL Delta Bilirubin 4.4 H (0.0-0.2) mg/dL AST 111 H 114 H (17-59) U/L Alkaline Phosphatase 331 H 334 H (38-126) U/L Total Protein 6.2 L (6.3-8.2) g/dL Albumin 2.7 L 2.5 L (3.5-5.0) g/dL Urine Protein (Negative) Urine Blood (Negative) Urine Bilirubin (Negative) Urine RBC (0-5) /hpf Hyaline Casts (0-2) /lpf Urine Mucus (None) /hpf Microbiology - Last 24 Hours (Table) 07/21/18 14:05 Urine Culture - Preliminary Urine,Suprapubic Assessment and Plan (1) Liver failure Narrative/Plan: Bilirubin remains elevated in the same range at 10.6. Bilirubin fractionation shows about less than 50% direct bilirubin, with however a significant percentage of delta bilirubin. The patient has been seen by gastric. We'll discuss with them, regarding that impression. If the patient is not felt to have an obstructive pathology, which would then indicate hepatocellular progression of his malignancy, then prognosis going forward is felt to be quite poor. Current Visit: Yes Status: Acute Code(s): K72.90 - HEPATIC FAILURE, UNSPECIFIED WITHOUT COMA SNOMED Code(s): 42684932 (2) Congestive heart failure Narrative/Plan: Case was discussed with cardiology. Repeat echo is again normal. The patient does not have orthopnea, or rales or JVD. Therefore his presentation is more likely due to third spacing from liver decompensation. Cardiology will assess the patient further, and if in agreement with the above clinical impression, we will likely try to increase his fluids. Current Visit: Yes Status: Acute Code(s): I50.9 - HEART FAILURE, UNSPECIFIED SNOMED Code(s): 08004701 (3) Prostate cancer Narrative/Plan: As noted above, we will await input from gastrology. If necessary, additional imaging will be ordered. If if progressive hepatocellular disease is confirmed , then we would really not have any good further systemic treatment options. This was discussed with the patient and his family. In that case, comfort care will be discussed. Patient is already on no code. Case was also discussed with Dr. Mcdonald, his primary oncologist Current Visit: No Status: Acute Code(s): C61 - MALIGNANT NEOPLASM OF PROSTATE SNOMED Code(s): 233350207 (4) Acute kidney injury Narrative/Plan: Nephrology input appreciated. ? Increase IV fluids, if okay with cardiology Current Visit: Yes Status: Acute Code(s): N17.9 - ACUTE KIDNEY FAILURE, UNSPECIFIED SNOMED Code(s): 57683178
[2018-07-22] MEDS: DEXTROSE 5% IN WATER 1,000 ML with SODIUM BICARB (1 MEQ/ML) 150 ML IV SCH (13:29)
--- NOTE | 2018-07-22 18:56 | P.CONS ---
History of Present Illness - Reason for Consult Consult date: 07/22/18 Elevated bilirubin Requesting physician: Anastacio Medina - Chief Complaint Fatigue, shortness of breath, jaundice - History of Present Illness The patient is a 78-year-old male with medical history of metastatic prostate cancer status post radical prostatectomy, radiation therapy and multiple lines of chemotherapy was found to have metastatic disease in 2014 when he underwent colon and bladder resection information of a colostomy and urostomy who presented to the hospital with complaints of weakness, fatigue and jaundice. The patient has been on multiple chemotherapies in the past most recently treated with Cabozantinib, which was stopped approximately one week ago due to diarrhea, decreased appetite and indigestion. He presented to the hospital reporting increased fatigue, and shortness of breath worse with exertion which had been progressing prior to presentation. The patient also reports that over the past few weeks he has noticed increasing jaundice and darkness of his urine. On presentation to the hospital the patient had a WBC count 4, RBC 9.2, platelets 162,000, INR 1.3, total bilirubin 11, alkaline phosphatase 331, AST 111, ALT 44. The patient also had an ultrasound which showed multiple liver lesions with the largest measuring 7.4 x 5.8 cm as well as gallbladder wall thickening. Review of Systems REVIEW OF SYSTEMS: CONSTITUTIONAL: Denies any fevers, chills, weight change or fatigue. CARDIOVASCULAR: Denies any chest pain, palpitations high or low blood pressures RESPIRATORY: No cough or hemoptysis, but the patient does report shortness of breath worse with exertion. GENITOURINARY: The patient has a urostomy and reports that his urine has become darker over the past few weeks. MUSCULOSKELETAL: Weakness reported. SKIN: Denies any new rashes or lesions, the patient does report jaundice. PSYCHIATRIC: Denies any new onset depression or anxiety. NEUROLOGY: Denies headache, denies any new focal deficits. EARS/NOSE/THROAT: No recent hearing change, congestion, nasal discharge or sore throat. EYES: No pain in eyes, discharge or change in vision. GASTROINTESTINAL: As per HPI. Past Medical History Past Medical History: Atrial Fibrillation, Cancer, Hypertension, Prostate Disorder, Skin Disorder Additional Past Medical History / Comment(s): metastatic prostate cancer -found also in bladder and rectal CA, completed chemo/radiation, arthritis, rt ear tinnitus. rx rt leg 37 years ago and 2016 rt femur fx(sx) History of Any Multi-Drug Resistant Organisms: None Reported Past Surgical History: Bladder Surgery, Hernia Repair, Prostate Surgery Additional Past Surgical History / Comment(s): prostate removed , bladder and rectum sx pt now has ileostomy & urostomy; hernia repair; rotator cuff;medi port rt chest. FX Leg 35 yrs ago, 2016 orif rt femur/plate d/t pathelogical fx Past Anesthesia/Blood Transfusion Reactions: No Reported Reaction Additional Past Anesthesia/Blood Transfusion Reaction / Comm: blood transfusion no reaction Smoking Status: Former smoker - Past Family History Brother(s) Family Medical History: Cancer Mother Additional Family Medical History / Comment(s): from complications from a blood transfusion Father Additional Family Medical History / Comment(s): in motorcycle accident Medications and Allergies Home Medications Medication Instructions Recorded Confirmed Type amLODIPine BES/OLMESARTAN MED 1 tab PO DAILY 01/09/15 07/21/18 History [Rica 5-40 mg Tablet] Cabozantinib S-Malate [Cabometyx] 20 mg PO DAILY 07/21/18 07/21/18 History Cholecalciferol [Vitamin D3] 1,000 unit PO DAILY 07/21/18 07/21/18 History Pantoprazole Sodium [Protonix] 40 mg PO DAILY 07/21/18 07/21/18 History Sulfamethox-Tmp 800-160Mg [Bactrim 1 tab PO Q12HR 07/21/18 07/21/18 History DS 800-160 mg] Allergies Allergy/AdvReac Type Severity Reaction Status Date / Time hydromorphone HCl Allergy Confusion Verified 07/21/18 15:12 [From Dilaudid] Mushroom Allergy Swelling Verified 07/21/18 15:12 Physical Exam Vitals: Vital Signs Temp Pulse Pulse Resp BP BP Pulse Ox 07/22/18 16:45 98.2 F 81 18 112/55 96 07/22/18 12:53 97.7 F 100 18 107/54 98 07/22/18 09:10 103 H 07/22/18 09:08 98.2 F 103 H 18 89/63 97 07/22/18 04:00 98.4 F 88 18 91/55 96 07/22/18 00:00 98.1 F 104 H 18 92/54 95 07/21/18 20:20 97.6 F 88 18 106/65 95 07/21/18 20:00 108 H 21 106/64 97 07/21/18 19:00 108 H 15 103/69 Intake and Output 07/22/18 07/22/18 07/22/18 06:59 14:59 22:59 Intake Total 240 0 Balance 240 0 Intake: Oral 240 0 Other: # Voids 1 3 Weight 77.337 kg On physical examination, patient appears comfortable in no apparent distress. HEAD: Normocephalic, atraumatic. EYES: Scleral icterus noted. No conjunctival injection. MOUTH: No lesions, tongue midline. NECK: Trachea midline, no gross abnormalities. CHEST: Clear to auscultation with no wheezing or rhonchi appreciated. HEART: Regular rate and rhythm. ABDOMEN: Soft, colostomy noted with nonbloody output. Urostomy with catheter. Bowel sounds are positive. No organomegaly. No guarding or rigidity. EXTREMITIES: No pedal edema. SKIN: No rashes, jaundice. NEUROLOGIC: Alert and oriented x3. No focal deficits. Results CBC & Chem 7: 07/21/18 14:35 07/22/18 07:09 Labs: Abnormal Lab Results - Last 24 Hours (Table) 07/22/18 Range/Units 07:09 Sodium 136 L (137-145) mmol/L Chloride 108 H (98-107) mmol/L Carbon Dioxide 18 L (22-30) mmol/L BUN 28 H (9-20) mg/dL Creatinine 1.91 H (0.66-1.25) mg/dL Glucose 102 H (74-99) mg/dL Calcium 7.0 L (8.4-10.2) mg/dL Total Bilirubin 10.6 H (0.2-1.3) mg/dL Conjugated Bilirubin 4.8 H (0.0-0.3) mg/dL Unconjugated Bilirubin 1.4 H (0.0-1.1) mg/dL Delta Bilirubin 4.4 H (0.0-0.2) mg/dL AST 114 H (17-59) U/L Alkaline Phosphatase 334 H (38-126) U/L Total Protein 6.2 L (6.3-8.2) g/dL Albumin 2.5 L (3.5-5.0) g/dL Microbiology - Last 24 Hours (Table) 07/21/18 14:05 Urine Culture - Preliminary Urine,Suprapubic US - abdomen: report reviewed (Ultrasound of the abdomen with multiple liver lesions noted the largest measuring 7.4 x 5.8 cm, with gallbladder wall thickening also seen) Assessment and Plan (1) Elevated liver enzymes Narrative/Plan: Pleasant 78-year-old male with a known history of metastatic prostate cancer status post multiple surgeries, and radiation therapy and multiple lines of chemotherapy who presented with increasing weakness, fatigue and jaundice. The patient was found to have an elevation in his liver enzymes with predominantly a cholestatic pattern and a total bilirubin of 11 on presentation. Ultrasound of the abdomen did show multiple hepatic lesions without definite bile duct dilation. It is unclear if the patient's elevation in bilirubin is secondary to diffuse intrahepatic metastases which would not be amenable to biliary stenting, or a large focal lesion causing bile duct obstruction which could be treated therapeutically with a stent. Further imaging is pending to help clarify this issue. Current Visit: Yes Status: Acute Code(s): R74.8 - ABNORMAL LEVELS OF OTHER SERUM ENZYMES SNOMED Code(s): 010906916 Plan: Supportive care Okay for diet Continue to monitor liver enzymes and INR Ultrasound of the abdomen reviewed Case discussed with the oncology service, appreciated the recommendations Given patient's elevation from baseline of creatinine use of contrast in imaging studies is limited, however at this time a MRCP will be ordered for better evaluation of the biliary tree Thank you for allowing us to participate in the care of the patient, we will continue to follow
[2018-07-22] MEDS: TEMAZEPAM 15 MG CAP PO PRN (21:08)
[2018-07-23] MEDS: PANTOPRAZOLE 40 MG TABLET PO SCH (06:32)
[2018-07-23] MEDS: ONDANSETRON 4 MG/2 ML VIAL IVP PRN ×2 (09:12→16:30)
--- NOTE | 2018-07-23 10:54 | P.PN ---
Subjective This is a 78-year-old male, patient of Dr. Almeida. He has a medical history of prostate cancer that was diagnosed in 2008 status post prostatectomy with radiation treatments. Patient was in remission until 2014 when he developed hematuria, at that time he was found to have a bladder mass and underwent resection with colostomy and urostomy. He is receiving current therapy with Cabozantinib and sees oncology on regular basis. Patient reports about a week ago he discontinued the Cabozantinib due to diarrhea, nausea, and vomiting. He did call his oncologist office who advised him to go to the emergency room to be evaluated. Patient's lab revealed hemoglobin 9.2, BUN 28, creatinine 1.91, total bilirubin 10.6, alk phos 334. Ultrasound showed no gallstones, ascites, extensive heterogenicity in the liver, consistent with tumor, and mild gallbladder wall thickening. Echocardiogram revealed atrial fibrillation, borderline left ventricular hypertrophy, ejection fraction 55-60% , moderate aortic stenosis, mild aortic regurgitation, no evidence of pulmonary hypertension, large pleural effusion. Chest x-ray showed atelectasis and effusions. Cardiology consulted, as well as nephrology and oncology. 2/3: Patient evaluated today, noted to be up in bedside chair. He denies any nausea, vomiting, diarrhea, chest pain or dizziness. MRCP has been ordered without contrast, will most likely be completed tomorrow. Cardiology, nephrology and oncology consult appreciated. He continues with IV fluids, losartan, amlodipine and Bactrim were discontinued due to acute kidney injury as per nephrology's recommendations. Bactrim was changed to ceftriaxone. Conjugated bilirubin 4.8, unconjugated bilirubin 1.4, total bilirubin 10.6, AST 114, ALT 47, alk phos 334. Vital signs are stable, blood pressure 96/59, heart rate 78, he remains afebrile. Objective - Vital Signs Vital signs: Vital Signs Temp 96.8 F L 07/23/18 04:00 Pulse 78 07/23/18 04:00 Resp 18 07/23/18 04:00 BP 100/55 07/23/18 04:00 Pulse Ox 96 07/23/18 04:00 Intake & Output 07/22/18 07/23/18 07/23/18 18:59 06:59 18:59 Intake Total 240 Output Total 325 Balance 240 -325 Weight 77.337 kg 77.3 kg Intake: Oral 240 Output: Urine 325 Other: # Voids 3 - Exam - Constitutional General appearance: cooperative, no acute distress - EENT Eyes: EOMI, PERRLA, scleral icterus ENT: hearing grossly normal, normal oropharynx - Neck Neck: no lymphadenopathy, normal ROM, no stridor, no thyromegaly Thyroid: bilateral: normal size, negative: firm, nodule - Respiratory Respiratory: bilateral: CTA, negative: dullness, rales, rhonchi, wheezing - Cardiovascular Bilateral lower extremity edema Rhythm: irregularly irregular Heart sounds: normal: S1, S2 - Gastrointestinal Colostomy and urostomy General gastrointestinal: no distended, normal bowel sounds, soft, no tenderness - Integumentary Integumentary: jaundiced - Neurologic Neurologic: CNII-XII intact - Musculoskeletal Musculoskeletal: generalized weakness, strength equal bilaterally, no right sided weakness, no left sided weakness - Psychiatric Psychiatric: A&O x's 3 - Labs CBC & Chem 7: 07/21/18 14:35 07/22/18 07:09 Labs: Abnormal Lab Results - Last 24 Hours (Table) 07/22/18 Range/Units 07:09 Sodium 136 L (137-145) mmol/L Chloride 108 H (98-107) mmol/L Carbon Dioxide 18 L (22-30) mmol/L BUN 28 H (9-20) mg/dL Creatinine 1.91 H (0.66-1.25) mg/dL Glucose 102 H (74-99) mg/dL Calcium 7.0 L (8.4-10.2) mg/dL Total Bilirubin 10.6 H (0.2-1.3) mg/dL Conjugated Bilirubin 4.8 H (0.0-0.3) mg/dL Unconjugated Bilirubin 1.4 H (0.0-1.1) mg/dL Delta Bilirubin 4.4 H (0.0-0.2) mg/dL AST 114 H (17-59) U/L Alkaline Phosphatase 334 H (38-126) U/L Total Protein 6.2 L (6.3-8.2) g/dL Albumin 2.5 L (3.5-5.0) g/dL Microbiology - Last 24 Hours (Table) 07/21/18 14:05 Urine Culture - Preliminary Urine,Suprapubic Gram Neg Bacilli Assessment and Plan Plan: 1: Prostate cancer with metastasis disease with liver metastasis and hepatic failure: Ultrasound showed widespread liver metastasis, oncology on consult, scheduled for MRCP 2. Congestive heart failure: Cardiology on consult, echocardiogram resulted, symptoms are mostly related to third spacing due to the liver decompensation, cardiology consult appreciated. Echocardiogram completed 3. Acute kidney injury secondary to dehydration from poor oral intake. nephrology on consult, Bactrim, losartan and amlodipine held 4. Hypertension: Daily medications Norvasc 5 mg daily and Cozaar 150 mg held due to hypotension and acute kidney injury. 5. Urinary tract infection: Bactrim as outpatient discontinued, urine cultures are pending, started on ceftriaxone 6. Paroxysmal atrial fibrillation: Currently rate controlled, not a candidate for anticoagulation 7. Hypotension. Blood pressure medications on hold 6. GI, DVT prophylaxis: Continue Protonix, SEDs The above impression and plan of care have been discussed and directed by signing physician. Isabella Donnelly nurse practitioner acting as scribe for signing physician.
--- NOTE | 2018-07-23 11:54 | P.PN ---
Subjective Progress Note Date: 07/23/18 Seen and examined for the follow-up of acute kidney injury. No new labs today feels better lying comfortable in the bed Objective - Vital Signs Vital signs: Vital Signs Temp 97.3 F L 07/23/18 09:51 Pulse 78 07/23/18 09:51 Resp 18 07/23/18 09:51 BP 96/59 07/23/18 09:51 Pulse Ox 96 07/23/18 09:51 Intake & Output 07/22/18 07/23/18 07/23/18 18:59 06:59 18:59 Intake Total 240 140 Output Total 325 Balance 240 -325 140 Weight 77.337 kg 77.3 kg Intake: Oral 240 140 Output: Urine 325 Other: # Voids 3 - Exam No acute distress S1-S2 heard Diminished breath sounds Abdominal distention Edema - Labs CBC & Chem 7: 07/21/18 14:35 07/22/18 07:09 Labs: Microbiology - Last 24 Hours (Table) 07/21/18 14:05 Urine Culture - Preliminary Urine,Suprapubic Gram Neg Bacilli Assessment and Plan Assessment: #1 nonoliguric acute kidney injury secondary to hemodynamic ATN with low blood pressures and also concomitant use of losartan and amlodipine. He was also on Bactrim that can cause interstitial nephritis and elevated creatinine. #2 metastatic prostate cancer #3 hypotension #4 edema #5 metabolic acidosis Plan: #1 continue with IV fluids, bicarb drip. #2 losartan and amlodipine including Bactrim was stopped yesterday, he did get a dose as well #3 admitted to drinking to maintain hemodynamics systolic more than 120. # 4 avoid nephrotoxic agents and hypotensive episodes. #5 labs in the morning
[2018-07-23 13:01] LABS: Albumin 2.6 g/dL (3.5-5.0); Calcium 7.1 mg/dL (8.4-10.2); Potassium 4.1 mmol/L (3.5-5.1); Total Bilirubin 11.7 mg/dL (0.2-1.3); Total Protein 6.4 g/dL (6.3-8.2)
[2018-07-23] MEDS: CHOLECALCIFEROL 1,000 UNIT TAB PO SCH (13:02)
--- NOTE | 2018-07-23 13:42 | P.PN ---
Subjective Progress Note Date: 07/23/18 Principal diagnosis: Liver failure, heart failure This is a pleasant 78-year-old gentleman with known history of prostate cancer treated with radical prostatectomy and, apparently found to have bladder mass and underwent radical surgery with resection including a colostomy and ureterostomy, pulse in 2014. He does have recurrent malignancy involving the liver. He has a known history also of maximal atrial fibrillation and hypertension. Patient presents hospital this admission with symptoms of increased diarrhea with associated nausea and decreased. We were asked to see the patient in consultation for congestive heart failure. He had apparently been noticing more shortness of breath than usual as well as edema over the last few weeks. Chest x-ray on admission showed probable basilar atelectasis and effusions. Ultrasound of the gallbladder revealed no gallstones, positive ascites, extensive heterotopic genius and the liver consistent with a tumor. EKG showed atrial fibrillation with controlled ventricular response. He is not a candidate for anticoagulation. A dialysis morning showed worsening renal function with a BUN of 28 and creatinine of 1.91. On examination, patient is resting comfortably in bed. He feels his breathing is better continues to have decreased appetite and lower extremity edema. Objective - Vital Signs Vital signs: Vital Signs Temp 97.5 F L 07/23/18 13:04 Pulse 79 07/23/18 13:04 Resp 18 07/23/18 13:04 BP 129/64 07/23/18 13:04 Pulse Ox 95 07/23/18 13:04 Intake & Output 07/22/18 07/23/18 07/23/18 18:59 06:59 18:59 Intake Total 240 140 Output Total 325 Balance 240 -325 140 Weight 77.337 kg 77.3 kg Intake: Oral 240 140 Output: Urine 325 Other: # Voids 3 - Exam GENERAL: 78-year-old gentleman, appears quite weak and frail, jaundiced, in no acute distress at the time of my examination HEENT: Head is atraumatic, normocephalic. Pupils equal, round. Sclera anicteric. Conjunctiva jaundiced . Mucous membranes of the mouth are moist. Neck is supple. There is no elevated jugular venous pressure. No carotid bruit is heard. HEART EXAMINATION: Heart S1 and S2 irregularly irregular with a systolic murmur CHEST EXAMINATION: Lungs reveal diminished air entry bilaterally ABDOMEN: Soft, nontender. Bowel sounds are heard. No organomegaly noted. EXTREMITIES: 2+ peripheral pulses with evidence of 2+ peripheral edema and no calf tenderness noted. NEUROLOGIC patient is awake, alert and oriented 3 . - Labs CBC & Chem 7: 07/21/18 14:35 07/23/18 12:26 Labs: Abnormal Lab Results - Last 24 Hours (Table) 07/23/18 Range/Units 12:26 Chloride 108 H (98-107) mmol/L Carbon Dioxide 18 L (22-30) mmol/L BUN 30 H (9-20) mg/dL Creatinine 1.86 H (0.66-1.25) mg/dL Glucose 110 H (74-99) mg/dL Calcium 7.1 L (8.4-10.2) mg/dL Total Bilirubin 11.7 H (0.2-1.3) mg/dL AST 135 H (17-59) U/L Alkaline Phosphatase 354 H (38-126) U/L Albumin 2.6 L (3.5-5.0) g/dL Microbiology - Last 24 Hours (Table) 07/21/18 14:05 Urine Culture - Preliminary Urine,Suprapubic Gram Neg Bacilli Assessment and Plan Assessment: #1 symptoms of persistent diarrhea, abdominal discomfort and vomiting. Marked increase in bilirubin as compared with a couple of months ago in a patient with known liver metastases #2 paroxysmal atrial fibrillation, not a candidate for anticoagulation #3 history of prostate cancer, bladder CA, rectal CA #4 hypertension #5 congestive heart failure diastolic acute on chronic Plan: From cardiology perspective, medications reviewed and will continue the same. Continue to monitor daily weights, intake and output as well as renal function closely. He is not a candidate for anticoagulation. Further recommendations to follow. [employer] note has been reviewed, I agree with a documented findings and plan of care. Patient was seen and examined.
[2018-07-23] MEDS: DEXTROSE 5% IN WATER 1,000 ML with SODIUM BICARB (1 MEQ/ML) 150 ML IV SCH (14:05)
--- NOTE | 2018-07-23 17:29 | P.PN ---
Subjective Progress Note Date: 07/23/18 Principal diagnosis: Jaundice, elevated liver enzymes Patient seen lying in bed with son at his bedside. No acute events overnight. No complaints. Objective - Vital Signs Vital signs: Vital Signs Temp 98.1 F 07/23/18 16:34 Pulse 84 07/23/18 16:34 Resp 18 07/23/18 16:34 BP 135/72 07/23/18 16:34 Pulse Ox 94 L 07/23/18 16:34 Intake & Output 07/22/18 07/23/18 07/23/18 18:59 06:59 18:59 Intake Total 240 140 Output Total 325 Balance 240 -325 140 Weight 77.337 kg 77.3 kg Intake: Oral 240 140 Output: Urine 325 Other: # Voids 3 - Exam On physical examination, patient appears comfortable in no apparent distress. HEAD: Normocephalic, atraumatic. EYES: Scleral icterus noted. No conjunctival injection. MOUTH: No lesions, tongue midline. NECK: Trachea midline, no gross abnormalities. CHEST: Clear to auscultation with no wheezing or rhonchi appreciated. HEART: Regular rate and rhythm. ABDOMEN: Soft, colostomy noted with nonbloody output. Urostomy with catheter. Bowel sounds are positive. No organomegaly. No guarding or rigidity. EXTREMITIES: No pedal edema. SKIN: No rashes, jaundice. NEUROLOGIC: Alert and oriented x3. No focal deficits. - Labs CBC & Chem 7: 07/21/18 14:35 07/23/18 12:26 Labs: Abnormal Lab Results - Last 24 Hours (Table) 07/23/18 Range/Units 12:26 Chloride 108 H (98-107) mmol/L Carbon Dioxide 18 L (22-30) mmol/L BUN 30 H (9-20) mg/dL Creatinine 1.86 H (0.66-1.25) mg/dL Glucose 110 H (74-99) mg/dL Calcium 7.1 L (8.4-10.2) mg/dL Total Bilirubin 11.7 H (0.2-1.3) mg/dL AST 135 H (17-59) U/L Alkaline Phosphatase 354 H (38-126) U/L Albumin 2.6 L (3.5-5.0) g/dL Microbiology - Last 24 Hours (Table) 07/21/18 14:05 Urine Culture - Preliminary Urine,Suprapubic Gram Neg Bacilli Assessment and Plan (1) Elevated liver enzymes Narrative/Plan: Pleasant 78-year-old male with a known history of metastatic prostate cancer status post multiple surgeries, and radiation therapy and multiple lines of chemotherapy who presented with increasing weakness, fatigue and jaundice. The patient was found to have an elevation in his liver enzymes with predominantly a cholestatic pattern and a total bilirubin of 11 on presentation. Ultrasound of the abdomen did show multiple hepatic lesions without definite bile duct dilation. It is unclear if the patient's elevation in bilirubin is secondary to diffuse intrahepatic metastases which would not be amenable to biliary stenting, or a large focal lesion causing bile duct obstruction which could be treated therapeutically with a stent. Further imaging is pending to help clarify this issue. Current Visit: Yes Status: Acute Code(s): R74.8 - ABNORMAL LEVELS OF OTHER SERUM ENZYMES SNOMED Code(s): 455229258 Plan: Supportive care Okay for diet Continue to monitor liver enzymes and INR Ultrasound of the abdomen reviewed Case discussed with the oncology service, appreciated the recommendations Given patient's elevation from baseline of creatinine use of contrast in imaging studies is limited, however at this time a MRCP will be ordered for better evaluation of the biliary tree Thank you for allowing us to participate in the care of the patient, we will continue to follow
[2018-07-23] MEDS: MORPHINE SULFATE 4 MG/ML SYRINGE IVP PRN (20:17)
[2018-07-24 06:13] LABS: Anisocytosis Slight; Basophils % (A) 0 %; Eosinophils % (A) 1 %; HCT 31.9 % (39.0-53.0); HGB 9.9 gm/dL (13.0-17.5); Hypochromasia Moderate; Lymphocytes # (A) 0.5 k/uL (1.0-4.8); Lymphocytes % (A) 15 %; MCH 31.7 pg (25.0-35.0); MCHC 31.2 g/dL (31.0-37.0); MCV 101.9 fL (80.0-100.0); Macrocytosis Moderate; Mean Platelet Volume 7.9; Monocytes # (A) 0.2 k/uL (0-1.0); Monocytes % (A) 6 %; Neutrophils # (A) 2.6 k/uL (1.3-7.7); Neutrophils % (A) 77 %; Platelet Count 167 k/uL (150-450); RBC 3.14 m/uL (4.30-5.90); RDW 18.7 % (11.5-15.5); WBC 3.4 k/uL (3.8-10.6)
[2018-07-24 06:26] LABS: Albumin 2.5 g/dL (3.5-5.0); Potassium 4.2 mmol/L (3.5-5.1); Total Protein 6.2 g/dL (6.3-8.2)
[2018-07-24] MEDS: PANTOPRAZOLE 40 MG TABLET PO SCH (06:41)
[2018-07-24] MEDS: METOCLOPRAMIDE 5 MG/ML 2 ML VIAL IVP PRN (11:20)
[2018-07-24] MEDS: MORPHINE SULFATE 4 MG/ML SYRINGE IVP PRN ×2 (11:50→20:24)
--- NOTE | 2018-07-24 12:40 | P.PN ---
Subjective Progress Note Date: 07/24/18 This is a 78-year-old male, patient of Dr. Almeida. He has a medical history of prostate cancer that was diagnosed in 2008 status post prostatectomy with radiation treatments. Patient was in remission until 2014 when he developed hematuria, at that time he was found to have a bladder mass and underwent resection with colostomy and urostomy. He is receiving current therapy with Cabozantinib and sees oncology on regular basis. Patient reports about a week ago he discontinued the Cabozantinib due to diarrhea, nausea, and vomiting. He did call his oncologist office who advised him to go to the emergency room to be evaluated. Patient's lab revealed hemoglobin 9.2, BUN 28, creatinine 1.91, total bilirubin 10.6, alk phos 334. Ultrasound showed no gallstones, ascites, extensive heterogenicity in the liver, consistent with tumor, and mild gallbladder wall thickening. Echocardiogram revealed atrial fibrillation, borderline left ventricular hypertrophy, ejection fraction 55-60% , moderate aortic stenosis, mild aortic regurgitation, no evidence of pulmonary hypertension, large pleural effusion. Chest x-ray showed atelectasis and effusions. Cardiology consulted, as well as nephrology and oncology. 2/3: Patient evaluated today, noted to be up in bedside chair. He denies any nausea, vomiting, diarrhea, chest pain or dizziness. MRCP has been ordered without contrast, will most likely be completed tomorrow. Cardiology, nephrology and oncology consult appreciated. He continues with IV fluids, losartan, amlodipine and Bactrim were discontinued due to acute kidney injury as per nephrology's recommendations. Bactrim was changed to ceftriaxone. Conjugated bilirubin 4.8, unconjugated bilirubin 1.4, total bilirubin 10.6, AST 114, ALT 47, alk phos 334. Vital signs are stable, blood pressure 96/59, heart rate 78, he remains afebrile. 2/4: Patient states he feels a little bit better from yesterday. He states he slept well. He did receive morphine last night that helped. He denies any shortness of breath while flat in bed. He has had very little output from his colostomy but is eating very little. Perez catheter is a medium color orange. He is scheduled for MRCP today at 4 PM, ordered by GI to evaluate biliary tree. Initially plan was home with hospice but family states that they have seen Dr. Bernal and there may be plan for aggressive treatment. Cardiology is following. Patient is not candidate for anticoagulation with paroxysmal atrial fibrillation. He is not currently on Lasix. Nephrology continues to follow the patient. Patient has been afebrile, blood pressure 110/63, heart rate running between 60 and 106, pulse ox 98% on room air. White count is 3.4, hemoglobin 9.9, platelet count 167, AST 138, ALT 44, alkaline phosphatase 360. BUN 28 and creatinine 1.86. Urine culture is positive for Enterobacter cloacae which is susceptible to ceftriaxone. Patient will be transferred to the [facility] floor without telemetry. Case management is following for discharge planning. Review Of Systems: Constitutional: No fever, no chills, no night sweats. No weight change. Reports weakness, reports fatigue or lethargy. Reports daytime sleepiness. EENT: No headache. No blurred vision or double vision, no loss of vision. No loss of Hearing, no ringing in the ears, no dizziness. No nasal drainage or congestion. No epistaxis. No sore throat. Lungs: No shortness of breath, cough, no sputum production. No wheezing. Cardiovascular: No chest pain, no lower extremity edema. No palpitations. No paroxysmal nocturnal dyspnea. No orthopnea. No lightheadedness or dizziness. No syncopal episodes. Abdominal: No abdominal pain. No nausea, vomiting. No diarrhea. No constipation. No bloody or tarry stools reports loss of appetite. Genitourinary: No dysuria, increased frequency, urgency. No urinary retention. Musculoskeletal: No myalgias. No muscle weakness, no gait dysfunction, no frequent falls. No back pain. No neck pain. Integumentary: No wounds, no lesions. No rash or pruritus. No unusual bruising. No change in hair or nails. Neurologic: No aphasia. No facial droop. No change in mentation. No head injury. No headache. No paralysis. No paresthesia. Psychiatric: No depression. No anxiety. No mood swings. Endocrine: No abnormal blood sugars. No weight change. No excessive sweating or thirst. No cold intolerance. Objective - Vital Signs Vital signs: Vital Signs Temp 98.0 F 07/24/18 07:49 Pulse 104 H 07/24/18 07:49 Resp 16 07/24/18 07:49 BP 110/63 07/24/18 07:49 Pulse Ox 98 07/24/18 07:49 Intake & Output 07/23/18 07/24/18 07/24/18 18:59 06:59 18:59 Intake Total 140 450 Output Total 525 Balance 140 -75 Weight 78 kg Intake: IV 400 0.9 400 Intake, IV Titration 50 Amount cefTRIAXone 1,000 mg In 50 Sodium Chloride 0.9% 50 ml @ 100 mls/hr IVPB [facility] Rx#:[id number] Oral 140 Output: Urine 525 - Exam General appearance: cooperative, no acute distress, patient resting in bed. and daughter are at the bedside. - EENT Eyes: EOMI, PERRLA, scleral icterus ENT: hearing grossly normal, normal oropharynx - Neck Neck: no lymphadenopathy, normal ROM, no stridor, no thyromegaly Thyroid: bilateral: normal size, negative: firm, nodule - Respiratory Respiratory: bilateral: CTA, negative: dullness, rales, rhonchi, wheezing - Cardiovascular Bilateral lower extremity edema Rhythm: irregularly irregular Heart sounds: normal: S1, S2 - Gastrointestinal Colostomy and urostomy General gastrointestinal: no distended, normal bowel sounds, soft, no tenderness - Integumentary Integumentary: jaundiced - Neurologic Neurologic: CNII-XII intact - Musculoskeletal Musculoskeletal: generalized weakness, strength equal bilaterally, no right sided weakness, no left sided weakness - Psychiatric Psychiatric: A&O x's 3 - Labs CBC & Chem 7: 07/24/18 05:36 07/24/18 05:36 Labs: Abnormal Lab Results - Last 24 Hours (Table) 07/23/18 07/24/18 07/24/18 Range/Units 12:26 05:36 05:36 WBC 3.4 L (3.8-10.6) k/uL RBC 3.14 L (4.30-5.90) m/uL Hgb 9.9 L (13.0-17.5) gm/dL Hct 31.9 L (39.0-53.0) % MCV 101.9 H (80.0-100.0) fL RDW 18.7 H (11.5-15.5) % Lymphocytes # 0.5 L (1.0-4.8) k/uL Chloride 108 H (98-107) mmol/L Carbon Dioxide 18 L (22-30) mmol/L BUN 30 H 28 H (9-20) mg/dL Creatinine 1.86 H 1.86 H (0.66-1.25) mg/dL Glucose 110 H 100 H (74-99) mg/dL Calcium 7.1 L 7.0 L (8.4-10.2) mg/dL Total Bilirubin 11.7 H 11.0 H (0.2-1.3) mg/dL AST 135 H 138 H (17-59) U/L Alkaline Phosphatase 354 H 360 H (38-126) U/L Total Protein 6.2 L (6.3-8.2) g/dL Albumin 2.6 L 2.5 L (3.5-5.0) g/dL Microbiology - Last 24 Hours (Table) 07/21/18 14:05 Urine Culture - Final Urine,Suprapubic Enterobacter cloacae Assessment and Plan Plan: 1. Prostate cancer with metastasis disease with liver metastasis and hepatic failure: Ultrasound showed widespread liver metastasis, oncology on consult, scheduled for MRCP 2. Congestive heart failure: Cardiology on consult, echocardiogram resulted, symptoms are mostly related to third spacing due to the liver decompensation, cardiology consult appreciated. Echocardiogram completed 3. Acute kidney injury secondary to dehydration from poor oral intake. nephrology on consult, Bactrim, losartan and amlodipine held. Patient was placed on a bicarb drip. 4. Hypertension: Daily medications Norvasc 5 mg daily and Cozaar 150 mg held due to hypotension and acute kidney injury. 5. Enterobacter urinary tract infection: Bactrim as outpatient discontinued, urine cultures are pending, started on ceftriaxone. 6. Paroxysmal atrial fibrillation: Currently rate controlled, not a candidate for anticoagulation 7. Hypotension. Blood pressure medications on hold 6. GI, DVT prophylaxis: Continue Protonix, SEDs The above impression and plan of care have been discussed and directed by signing physician. Jen Erwin nurse practitioner acting as scribe for signing physician.
[2018-07-24] MEDS: DEXTROSE 5% IN WATER 1,000 ML with SODIUM BICARB (1 MEQ/ML) 150 ML IV SCH (12:49)
[2018-07-24] MEDS: CHOLECALCIFEROL 1,000 UNIT TAB PO SCH (12:49)
--- NOTE | 2018-07-24 12:51 | P.PN ---
Subjective Progress Note Date: 07/24/18 This is a 78-year-old gentleman with known history of prostate cancer treated with radical prostatectomy followed by radiation, treatment was completed in 2009, apparently in 2014 he was found to have a bladder mass and underwent radical surgery with resection including a colostomy and year ostomy at [facility]. According to oncology's notes, recurrent malignancy was present and patient is going through many lines of different therapies. Most recently he has been on targeted therapy with Cabozantinib. Patient does have a known history of paroxysmal atrial fibrillation as well as hypertension. Patient presents to the hospital on this admission with symptoms of increased diarrhea with associated nausea, decreased appetite. Cardiology consultation was requested for congestive cardiac failure. According to the patient, he has noticed himself to be more short of breath than usual and over the past few weeks has been retaining a significant amount of bilateral peripheral edema chest x-ray on admission here showed probable basilar atelectasis and effusions. Ultrasound of the gallbladder does not reveal any gallstones, positive ascites, extensive heterogeneous in the liver consistent with a tumor. Mild gallbladder wall thickening. EKG shows atrial fibrillation with controlled ventricular response. Echocardiogram with Doppler study revealed an ejection fraction of 55-60%, moderate aortic valve sclerosis moderate aortic stenosis small pericardial effusion with large pleural effusion.. Blood pressure 90/50 with a heart rate in the 80s, 96% on room air. White blood cell count 4.0, hemoglobin 9.2, platelet count 162. Sodium 136, potassium 4.0, BUN 28 and creatinine 1.9 on admission creatinine was 1.7. Calcium 7.2 total bilirubin 11 AST 114 ALT 47 alk phos 334, conjugated bilirubin 4.8 on conjugated 1.4 delta bilirubin 4.4 total protein 6.2 of human 2.5. BNP level 7610. At the time of my examination this morning, patient feels extremely weak , mild shortness of breath. Mild abdominal pain. 07/24/2018 Patient seen and examined this morning, overall he states he's feeling better and slept well through the night last night. He is scheduled to undergo MRCP today. The family apparently did have a discussion with oncology, and they may proceed with aggressive treatment instead of hospice. His blood pressure this morning 98/50 with a heart rate of 90, 91% on room air. White blood cell count 3.4, hemoglobin 9.9, platelet count 167. Sodium 137, potassium 4.2, BUN 28 and creatinine 1.8. AST 138 ALT 44 alk phos 360. Objective - Vital Signs Vital signs: Vital Signs Temp 98.1 F 07/24/18 12:00 Pulse 107 H 07/24/18 12:00 Resp 16 07/24/18 12:00 BP 98/53 07/24/18 12:00 Pulse Ox 91 L 07/24/18 12:00 Intake & Output 07/23/18 07/24/18 07/24/18 18:59 06:59 18:59 Intake Total 140 450 250 Output Total 525 Balance 140 -75 250 Weight 78 kg Intake: IV 400 0.9 400 Intake, IV Titration 50 250 Amount Dextrose 5% in Water 1, 250 000 ml @ 50 mls/hr IV . Q23H ANGELIQUE with Sodium Bicarb (1 Meq/ml) 150 ml Rx#:[id number] cefTRIAXone 1,000 mg In 50 Sodium Chloride 0.9% 50 ml @ 100 mls/hr IVPB HS [facility] Rx#:[id number] Oral 140 Output: Urine 525 Other: # Bowel Movements 1 - Exam GENERAL: 78-year-old gentleman, appears quite weak and frail, jaundiced, in no acute distress at the time of my examination HEENT: Head is atraumatic, normocephalic. Pupils equal, round. Sclera anicteric. Conjunctiva jaundiced . Mucous membranes of the mouth are moist. Neck is supple. There is no elevated jugular venous pressure. No carotid bruit is heard. HEART EXAMINATION: Heart S1 and S2 irregularly irregular with a systolic murmur CHEST EXAMINATION: Lungs reveal diminished air entry bilaterally ABDOMEN: Soft, nontender. Bowel sounds are heard. No organomegaly noted. EXTREMITIES: 2+ peripheral pulses with evidence of 2+ peripheral edema and no calf tenderness noted. NEUROLOGIC patient is awake, alert and oriented 3 . - Labs CBC & Chem 7: 07/24/18 05:36 07/24/18 05:36 Labs: Abnormal Lab Results - Last 24 Hours (Table) 07/23/18 07/24/18 07/24/18 Range/Units 12:26 05:36 05:36 WBC 3.4 L (3.8-10.6) k/uL RBC 3.14 L (4.30-5.90) m/uL Hgb 9.9 L (13.0-17.5) gm/dL Hct 31.9 L (39.0-53.0) % MCV 101.9 H (80.0-100.0) fL RDW 18.7 H (11.5-15.5) % Lymphocytes # 0.5 L (1.0-4.8) k/uL Chloride 108 H (98-107) mmol/L Carbon Dioxide 18 L (22-30) mmol/L BUN 30 H 28 H (9-20) mg/dL Creatinine 1.86 H 1.86 H (0.66-1.25) mg/dL Glucose 110 H 100 H (74-99) mg/dL Calcium 7.1 L 7.0 L (8.4-10.2) mg/dL Total Bilirubin 11.7 H 11.0 H (0.2-1.3) mg/dL AST 135 H 138 H (17-59) U/L Alkaline Phosphatase 354 H 360 H (38-126) U/L Total Protein 6.2 L (6.3-8.2) g/dL Albumin 2.6 L 2.5 L (3.5-5.0) g/dL Microbiology - Last 24 Hours (Table) 07/21/18 14:05 Urine Culture - Final Urine,Suprapubic Enterobacter cloacae Assessment and Plan Plan: Assessment and plan #1 symptoms of persistent diarrhea, abdominal discomfort and vomiting. Marked increase in bilirubin as compared with a couple of months ago in a patient with known liver metastases #2 paroxysmal atrial fibrillation, not a candidate for anticoagulation #3 history of prostate cancer, bladder CA, rectal CA #4 hypertension #5 congestive heart failure diastolic acute on chronic Plan Cardiology's perspective, we will recommend to continue the patient on his current medications. Patient is not a candidate for anticoagulation. DNP note has been reviewed, I agree with a documented findings and plan of care. Patient was seen and examined.
--- NOTE | 2018-07-24 16:40 | MR ---
MRCP HISTORY: Elevated bilirubin Multiplanar multisequence imaging through the abdomen with three-dimensional reconstructions performe d through the biliary tree. Correlation to ultrasound gallbladder 07/21/2017, CT chest abdomen pelvis 03/31/2018 Exam is limited technically. Multiple T2 intense masses are present within the liver. There is pleural effusion which is developed in the interval on the right, probable associated atelectasis. Possible mesenteric caking present within the abdomen. Dilated bile ducts are noted. There is fluid i n the abdomen. IMPRESSION: Exam is markedly limited by patient body habitus. Metastatic disease. Bilateral pleural e ffusions. Ascites. There is some indication of biliary dilation.
--- NOTE | 2018-07-24 18:13 | P.PN ---
Subjective Progress Note Date: 07/24/18 Principal diagnosis: liver failure F/U today pt c/o weakness, very tired, poor appetite, upper abd discomfort, mild Objective - Vital Signs Vital signs: Vital Signs Temp 98.2 F 07/24/18 16:00 Pulse 106 H 07/24/18 16:00 Resp 16 07/24/18 16:00 BP 90/46 07/24/18 16:00 Pulse Ox 95 07/24/18 16:00 Intake & Output 07/23/18 07/24/18 07/24/18 18:59 06:59 18:59 Intake Total 140 450 490 Output Total 525 Balance 140 -75 490 Weight 78 kg Intake: IV 400 0.9 400 Intake, IV Titration 50 250 Amount Dextrose 5% in Water 1, 250 000 ml @ 50 mls/hr IV . Q23H ANGELIQUE with Sodium Bicarb (1 Meq/ml) 150 ml Rx#:[id number] cefTRIAXone 1,000 mg In 50 Sodium Chloride 0.9% 50 ml @ 100 mls/hr IVPB HS [facility] Rx#:[id number] Oral 140 240 Output: Urine 525 Other: # Bowel Movements 1 - Constitutional General appearance: Present: average body habitus, cooperative, no acute distress - EENT Eyes: Present: anicteric sclerae, EOMI ENT: Present: hearing grossly normal - Respiratory Respiratory: bilateral: CTA, diminished - Cardiovascular Heart sounds: normal: S1, S2 - Gastrointestinal General gastrointestinal: Present: normal bowel sounds, soft - Integumentary Integumentary: Present: pale - Neurologic Neurologic: Present: CNII-XII intact - Musculoskeletal Musculoskeletal: Present: generalized weakness - Psychiatric Psychiatric: Present: A&O x's 3, appropriate affect, intact judgment & insight - Labs CBC & Chem 7: 07/24/18 05:36 07/24/18 05:36 Labs: Abnormal Lab Results - Last 24 Hours (Table) 07/24/18 07/24/18 Range/Units 05:36 05:36 WBC 3.4 L (3.8-10.6) k/uL RBC 3.14 L (4.30-5.90) m/uL Hgb 9.9 L (13.0-17.5) gm/dL Hct 31.9 L (39.0-53.0) % MCV 101.9 H (80.0-100.0) fL RDW 18.7 H (11.5-15.5) % Lymphocytes # 0.5 L (1.0-4.8) k/uL BUN 28 H (9-20) mg/dL Creatinine 1.86 H (0.66-1.25) mg/dL Glucose 100 H (74-99) mg/dL Calcium 7.0 L (8.4-10.2) mg/dL Total Bilirubin 11.0 H (0.2-1.3) mg/dL AST 138 H (17-59) U/L Alkaline Phosphatase 360 H (38-126) U/L Total Protein 6.2 L (6.3-8.2) g/dL Albumin 2.5 L (3.5-5.0) g/dL Microbiology - Last 24 Hours (Table) 07/21/18 14:05 Urine Culture - Final Urine,Suprapubic Enterobacter cloacae Assessment and Plan (1) Congestive heart failure Current Visit: Yes Status: Acute Priority: High Code(s): I50.9 - HEART FAILURE, UNSPECIFIED SNOMED Code(s): 01979322 (2) Elevated liver enzymes Current Visit: Yes Status: Acute Priority: High Code(s): R74.8 - ABNORMAL LEVELS OF OTHER SERUM ENZYMES SNOMED Code(s): 265186578 (3) Liver failure Current Visit: Yes Status: Acute Priority: High Code(s): K72.90 - HEPATIC FAILURE, UNSPECIFIED WITHOUT COMA SNOMED Code(s): 99044660 (4) Generalized weakness Current Visit: Yes Status: Acute Priority: High Code(s): R53.1 - WEAKNESS SNOMED Code(s): 18714603 (5) Prostate cancer Current Visit: Yes Status: Acute Priority: High Code(s): C61 - MALIGNANT NEOPLASM OF PROSTATE SNOMED Code(s): 039748561 Plan: Discussed with pt concern that the liver failure is due to disease. In which case it would be very difficult to treat him. If this were, however, an obstruction that could be relieved with a procedure, then we could see how things go. Pt symptoms-feeling tired, unclear thinking-r/t hepatic encephalopathy MRCP is pending, hopefully this will clarify obstruction vs disease. F/U in AM Attests: I have performed H&P and developed impression and plan of care of patient, discussed with dictator. I agree with dictated note, documented as a scribe.
--- NOTE | 2018-07-24 19:08 | P.PN ---
Subjective Progress Note Date: 07/24/18 Principal diagnosis: Jaundice, elevated liver enzymes Patient seen lying in bed with son and at his bedside. No acute events overnight. No acute complaints. Objective - Vital Signs Vital signs: Vital Signs Temp 98.2 F 07/24/18 16:00 Pulse 106 H 07/24/18 16:00 Resp 16 07/24/18 16:00 BP 90/46 07/24/18 16:00 Pulse Ox 95 07/24/18 16:00 Intake & Output 07/24/18 07/24/18 07/25/18 06:59 18:59 06:59 Intake Total 450 500 Output Total 525 Balance -75 500 Weight 78 kg Intake: IV 400 10 0.9 400 Invasive Line 1 10 Intake, IV Titration 50 250 Amount Dextrose 5% in Water 1, 250 000 ml @ 50 mls/hr IV . Q23H ANG[facility]IQUE with Sodium Bicarb (1 Meq/ml) 150 ml Rx#:[id number] cefTRIAXone 1,000 mg In 50 Sodium Chloride 0.9% 50 ml @ 100 mls/hr IVPB HS [facility] Rx#:[id number] Oral 240 Output: Urine 525 Other: # Bowel Movements 1 - Exam On physical examination, patient appears comfortable in no apparent distress. HEAD: Normocephalic, atraumatic. EYES: Scleral icterus noted. No conjunctival injection. MOUTH: No lesions, tongue midline. NECK: Trachea midline, no gross abnormalities. CHEST: Clear to auscultation with no wheezing or rhonchi appreciated. HEART: Regular rate and rhythm. ABDOMEN: Soft, colostomy noted with nonbloody output. Urostomy with catheter. Bowel sounds are positive. No organomegaly. No guarding or rigidity. EXTREMITIES: No pedal edema. SKIN: No rashes, jaundice. NEUROLOGIC: Alert and oriented x3. No focal deficits. - Labs CBC & Chem 7: 07/24/18 05:36 07/24/18 05:36 Labs: Abnormal Lab Results - Last 24 Hours (Table) 07/24/18 07/24/18 Range/Units 05:36 05:36 WBC 3.4 L (3.8-10.6) k/uL RBC 3.14 L (4.30-5.90) m/uL Hgb 9.9 L (13.0-17.5) gm/dL Hct 31.9 L (39.0-53.0) % MCV 101.9 H (80.0-100.0) fL RDW 18.7 H (11.5-15.5) % Lymphocytes # 0.5 L (1.0-4.8) k/uL BUN 28 H (9-20) mg/dL Creatinine 1.86 H (0.66-1.25) mg/dL Glucose 100 H (74-99) mg/dL Calcium 7.0 L (8.4-10.2) mg/dL Total Bilirubin 11.0 H (0.2-1.3) mg/dL AST 138 H (17-59) U/L Alkaline Phosphatase 360 H (38-126) U/L Total Protein 6.2 L (6.3-8.2) g/dL Albumin 2.5 L (3.5-5.0) g/dL Microbiology - Last 24 Hours (Table) 07/21/18 14:05 Urine Culture - Final Urine,Suprapubic Enterobacter cloacae Assessment and Plan (1) Elevated liver enzymes Narrative/Plan: Pleasant 78-year-old male with a known history of metastatic prostate cancer status post multiple surgeries, and radiation therapy and multiple lines of chemotherapy who presented with increasing weakness, fatigue and jaundice. The patient was found to have an elevation in his liver enzymes with predominantly a cholestatic pattern and a total bilirubin of 11 on presentation. Ultrasound of the abdomen did show multiple hepatic lesions without definite bile duct dilation. It is unclear if the patient's elevation in bilirubin is secondary to diffuse intrahepatic metastases which would not be amenable to biliary stenting, or a large focal lesion causing bile duct obstruction which could be treated therapeutically with a stent. MRCP imaging performed tonight did show liver metastases, indication of some biliary dilation, still unclear if elevation in bilirubin is secondary to intrahepatic disease or obstruction. Current Visit: Yes Status: Acute Priority: High Code(s): R74.8 - ABNORMAL LEVELS OF OTHER SERUM ENZYMES SNOMED Code(s): 328700728 Plan: Supportive care Okay for diet Continue to monitor liver enzymes and INR Ultrasound of the abdomen reviewed Case discussed with the oncology service, appreciated the recommendations MRCP performed with metastatic disease in the liver noted. There is also some indication of dilation. Still unclear if the patient's elevation in liver enzymes are secondary to metastatic disease or obstruction from metastatic disease. Results available after the patient was seen today. We'll discuss the case with the oncology service and the patient and decide how to proceed, either with intervention or hospice care given the patient's advanced disease and failure of multiple lines of chemotherapy. Thank you for allowing us to participate in the care of the patient, we will continue to follow
--- NOTE | 2018-07-24 21:33 | PN ---
PROGRESS NOTE Patient is seen for followup for acute kidney injury secondary to hypoperfusion hypotension. The patient had also been on Bactrim. He does have metastatic prostatic cancer and is maintained on IV bicarb. Antihypertensive medications are on hold. PHYSICAL EXAMINATION: This morning, blood pressure was 110/63, heart rate 104 per minute. Patient is afebrile. Examination of the heart S1, S2. Examination of lungs bilateral breath sounds are heard. Abdomen is soft, nontender. Examination lower extremity shows edema. DIRECTOR EHS exam is grossly intact. LAB: Show sodium 137, potassium 4.2, chloride 106, BUN 28, serum creatinine 1.86, hemoglobin 9.9 g/dL. ASSESSMENT: 1. Acute kidney injury, acute tubular necrosis, currently nonoliguric with stable renal function, creatinine staying at about 1.86. UA showed multiple hyaline casts. We do not have an ultrasound of the kidneys which I will obtain. An abdominal CT done in March of 2018 did not show any abnormalities in the kidney. 2. Metabolic acidosis. Maintained on IV sodium bicarb. 3. Metastatic prostatic cancer. 4. Bladder cancer status post cystectomy with ileal loop urostomy and colostomy. I believe this was mostly related to his previous prostate cancer. PLAN: Continue with the IV bicarb for now. Repeat labs in a.m. Obtain ultrasound of the kidneys. Continue IV bicarb. Repeat labs in a.m. MMODL / IJN: [id number] /
[2018-07-25] MEDS: MORPHINE SULFATE 4 MG/ML SYRINGE IVP PRN ×3 (02:44→20:35)
[2018-07-25 06:33] LABS: Anisocytosis Slight; Basophils % (A) 0 %; Eosinophils # (A) 0.1 k/uL (0-0.7); Eosinophils % (A) 1 %; HCT 29.1 % (39.0-53.0); Hypochromasia Moderate; Lymphocytes # (A) 0.4 k/uL (1.0-4.8); Lymphocytes % (A) 11 %; MCH 31.5 pg (25.0-35.0); MCHC 30.9 g/dL (31.0-37.0); Macrocytosis Moderate; Mean Platelet Volume 8.3; Monocytes # (A) 0.3 k/uL (0-1.0); Monocytes % (A) 8 %; Neutrophils # (A) 2.8 k/uL (1.3-7.7); Neutrophils % (A) 77 %; Platelet Count 141 k/uL (150-450); RBC 2.85 m/uL (4.30-5.90); RDW 18.6 % (11.5-15.5); WBC 3.7 k/uL (3.8-10.6)
[2018-07-25] MEDS: PANTOPRAZOLE 40 MG TABLET PO SCH (06:37)
[2018-07-25 06:56] LABS: Albumin 2.3 g/dL (3.5-5.0); Calcium 6.5 mg/dL (8.4-10.2); Potassium 4.2 mmol/L (3.5-5.1); Total Bilirubin 10.2 mg/dL (0.2-1.3); Total Protein 5.8 g/dL (6.3-8.2)
[2018-07-25] MEDS: CHOLECALCIFEROL 1,000 UNIT TAB PO SCH (11:34)
[2018-07-25] MEDS: DEXTROSE 5% IN WATER 1,000 ML with SODIUM BICARB (1 MEQ/ML) 150 ML IV SCH (12:59)
[2018-07-25 14:16] VITALS: BMI 26.4
--- NOTE | 2018-07-25 14:53 | P.PN ---
Subjective Progress Note Date: 07/25/18 This is a 78-year-old male, patient of Dr. Almeida. He has a medical history of prostate cancer that was diagnosed in 2008 status post prostatectomy with radiation treatments. Patient was in remission until 2014 when he developed hematuria, at that time he was found to have a bladder mass and underwent resection with colostomy and urostomy. He is receiving current therapy with Cabozantinib and sees oncology on regular basis. Patient reports about a week ago he discontinued the Cabozantinib due to diarrhea, nausea, and vomiting. He did call his oncologist office who advised him to go to the emergency room to be evaluated. Patient's lab revealed hemoglobin 9.2, BUN 28, creatinine 1.91, total bilirubin 10.6, alk phos 334. Ultrasound showed no gallstones, ascites, extensive heterogenicity in the liver, consistent with tumor, and mild gallbladder wall thickening. Echocardiogram revealed atrial fibrillation, borderline left ventricular hypertrophy, ejection fraction 55-60% , moderate aortic stenosis, mild aortic regurgitation, no evidence of pulmonary hypertension, large pleural effusion. Chest x-ray showed atelectasis and effusions. Cardiology consulted, as well as nephrology and oncology. 2/3: Patient evaluated today, noted to be up in bedside chair. He denies any nausea, vomiting, diarrhea, chest pain or dizziness. MRCP has been ordered without contrast, will most likely be completed tomorrow. Cardiology, nephrology and oncology consult appreciated. He continues with IV fluids, losartan, amlodipine and Bactrim were discontinued due to acute kidney injury as per nephrology's recommendations. Bactrim was changed to ceftriaxone. Conjugated bilirubin 4.8, unconjugated bilirubin 1.4, total bilirubin 10.6, AST 114, ALT 47, alk phos 334. Vital signs are stable, blood pressure 96/59, heart rate 78, he remains afebrile. 2/4: Patient states he feels a little bit better from yesterday. He states he slept well. He did receive morphine last night that helped. He denies any shortness of breath while flat in bed. He has had very little output from his colostomy but is eating very little. Perez catheter is a medium color orange. He is scheduled for MRCP today at 4 PM, ordered by GI to evaluate biliary tree. Initially plan was home with hospice but family states that they have seen Dr. Bernal and there may be plan for aggressive treatment. Cardiology is following. Patient is not candidate for anticoagulation with paroxysmal atrial fibrillation. He is not currently on Lasix. Nephrology continues to follow the patient. Patient has been afebrile, blood pressure 110/63, heart rate running between 60 and 106, pulse ox 98% on room air. White count is 3.4, hemoglobin 9.9, platelet count 167, AST 138, ALT 44, alkaline phosphatase 360. BUN 28 and creatinine 1.86. Urine culture is positive for Enterobacter cloacae which is susceptible to ceftriaxone. Patient will be transferred to the [facility] floor without telemetry. Case management is following for discharge planning. 07/25: MRCP is limited by patient's body habitus. Metastatic disease. Bilateral pleural effusions. Ascites. There is some indication of biliary dilatation. Study is to be reviewed by and radiology to determine plan. If ERCP/ stent will not be of benefit, most likely patient will be placed under hospice and discharged home. Renal function is worsening with BUN 33 and creatinine 2.23. Patient is followed by Dr. Espitia. Patient states that he is not eating very much and is on a protein supplement. He has been afebrile, blood pressure 8458-139/65, pulse ox 92% on room air, heart rate running in the 60s to 80s. Hemoglobin is 9, platelet count 141. Total bilirubin 10.2, AST 119, ALT 43, alkaline phosphatase 347. Review Of Systems: Constitutional: No fever, no chills, no night sweats. No weight change. Reports weakness, reports fatigue reports lethargy. Reports daytime sleepiness. EENT: No headache. No blurred vision or double vision, no loss of vision. No loss of Hearing, no ringing in the ears, no dizziness. No nasal drainage or congestion. No epistaxis. No sore throat. Lungs: No shortness of breath, cough, no sputum production. No wheezing. Cardiovascular: No chest pain, no lower extremity edema. No palpitations. No paroxysmal nocturnal dyspnea. No orthopnea. No lightheadedness or dizziness. No syncopal episodes. Abdominal: No abdominal pain. No nausea, vomiting. No diarrhea. No constipation. No bloody or tarry stools reports loss of appetite. Genitourinary: No dysuria, increased frequency, urgency. No urinary retention. Musculoskeletal: No myalgias. No muscle weakness, no gait dysfunction, no frequent falls. No back pain. No neck pain. Integumentary: No wounds, no lesions. No rash or pruritus. No unusual bruising. No change in hair or nails. Neurologic: No aphasia. No facial droop. No change in mentation. No head injury. No headache. No paralysis. No paresthesia. Psychiatric: No depression. No anxiety. No mood swings. Endocrine: No abnormal blood sugars. No weight change. No excessive sweating or thirst. No cold intolerance. Objective - Vital Signs Vital signs: Vital Signs Temp 98.3 F 07/25/18 07:45 Pulse 82 07/25/18 07:45 Resp 16 07/25/18 07:45 BP 84/58 07/25/18 07:45 Pulse Ox 92 L 07/25/18 07:45 Intake & Output 07/24/18 07/25/18 07/25/18 18:59 06:59 18:59 Intake Total 500 810 0 Output Total 375 Balance 500 435 0 Weight 78.9 kg Intake: IV 10 410 0.9 400 Invasive Line 1 10 10 Intake, IV Titration 250 400 Amount Dextrose 5% in Water 1, 250 400 000 ml @ 50 mls/hr IV . Q23H ANGELIQUE with Sodium Bicarb (1 Meq/ml) 150 ml Rx#:[id number] Oral 240 0 Output: Urine 375 Other: # Bowel Movements 1 - Exam General appearance: cooperative, no acute distress, patient resting in bed. Son at the bedside. - EENT Eyes: EOMI, PERRLA, scleral icterus ENT: hearing grossly normal, normal oropharynx - Neck Neck: no lymphadenopathy, normal ROM, no stridor, no thyromegaly Thyroid: bilateral: normal size, negative: firm, nodule - Respiratory Respiratory: bilateral: CTA, negative: dullness, rales, rhonchi, wheezing - Cardiovascular Bilateral lower extremity edema Rhythm: irregularly irregular Heart sounds: normal: S1, S2 - Gastrointestinal Colostomy and urostomy General gastrointestinal: no distended, normal bowel sounds, soft, no tenderness - Integumentary Integumentary: jaundiced - Neurologic Neurologic: CNII-XII intact - Musculoskeletal Musculoskeletal: generalized weakness, strength equal bilaterally, no right sided weakness, no left sided weakness - Psychiatric Psychiatric: A&O x's 3 - Labs CBC & Chem 7: 07/25/18 06:00 07/25/18 06:00 Labs: Abnormal Lab Results - Last 24 Hours (Table) 07/25/18 07/25/18 Range/Units 06:00 06:00 WBC 3.7 L (3.8-10.6) k/uL RBC 2.85 L (4.30-5.90) m/uL Hgb 9.0 L (13.0-17.5) gm/dL Hct 29.1 L (39.0-53.0) % MCV 102.0 H (80.0-100.0) fL MCHC 30.9 L (31.0-37.0) g/dL RDW 18.6 H (11.5-15.5) % Plt Count 141 L (150-450) k/uL Lymphocytes # 0.4 L (1.0-4.8) k/uL Sodium 134 L (137-145) mmol/L BUN 33 H (9-20) mg/dL Creatinine 2.23 H (0.66-1.25) mg/dL Calcium 6.5 L (8.4-10.2) mg/dL Total Bilirubin 10.2 H (0.2-1.3) mg/dL AST 119 H (17-59) U/L Alkaline Phosphatase 347 H (38-126) U/L Total Protein 5.8 L (6.3-8.2) g/dL Albumin 2.3 L (3.5-5.0) g/dL Assessment and Plan Plan: 1. 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 GI to determine next steps. 2. Acute on chronic diastolic heart failure: Cardiology on consult, echocardiogram resulted, 3. Acute kidney injury secondary to dehydration from poor oral intake. nephrology on consult, Bactrim, losartan and amlodipine held. Patient was placed on a bicarb drip. 4. Hypertension: Daily medications Norvasc 5 mg daily and Cozaar 150 mg held due to hypotension and acute kidney injury. 5. Enterobacter urinary tract infection: Bactrim as outpatient discontinued, urine cultures are pending, started on ceftriaxone. 6. Paroxysmal atrial fibrillation: Currently rate controlled, not a candidate for anticoagulation 7. Hypotension. Blood pressure medications on hold 6. GI, DVT prophylaxis: Continue Protonix, SEDs Discharge plan: Home with home care or hospice in the next 24 hours. The above impression and plan of care have been discussed and directed by signing physician. Jen Erwin nurse practitioner acting as scribe for signing physician.
[2018-07-25] MEDS: METOCLOPRAMIDE 5 MG/ML 2 ML VIAL IVP PRN (17:55)
--- NOTE | 2018-07-25 18:06 | P.PN ---
Subjective Progress Note Date: 07/25/18 Principal diagnosis: liver failure F/U today pt c/o that he would like to go home. No acute complaints, no progressive symptoms to report Objective - Vital Signs Vital signs: Vital Signs Temp 98.1 F 07/25/18 15:00 Pulse 113 H 07/25/18 15:00 Resp 16 07/25/18 15:00 BP 87/55 07/25/18 15:00 Pulse Ox 92 L 07/25/18 15:00 Intake & Output 07/24/18 07/25/18 07/25/18 18:59 06:59 18:59 Intake Total 500 810 350 Output Total 375 Balance 500 435 350 Weight 78.9 kg 78.9 kg Intake: IV 10 410 0.9 400 Invasive Line 1 10 10 Intake, IV Titration 250 400 350 Amount Dextrose 5% in Water 1, 250 400 350 000 ml @ 50 mls/hr IV . Q23H ANGELIQUE with Sodium Bicarb (1 Meq/ml) 150 ml Rx#:[id number] Oral 240 0 Output: Urine 375 Other: # Voids 0 # Bowel Movements 1 0 - Constitutional Constitutional Comment(s): cachetic General appearance: Present: cooperative, no acute distress - EENT Eyes: Present: EOMI, scleral icterus - Respiratory Respiratory: bilateral: CTA (weak inspiratory effort) - Cardiovascular Rhythm: regular Heart sounds: normal: S1, S2 - Peripheral edema leg Peripheral Edema: bilateral: None - Gastrointestinal General gastrointestinal: Present: normal bowel sounds, soft - Integumentary Integumentary: Present: jaundiced - Neurologic Neurologic: Present: CNII-XII intact - Musculoskeletal Musculoskeletal: Present: generalized weakness - Psychiatric Psychiatric: Present: A&O x's 3, appropriate affect - Labs CBC & Chem 7: 07/25/18 06:00 07/25/18 06:00 Labs: Abnormal Lab Results - Last 24 Hours (Table) 07/25/18 07/25/18 Range/Units 06:00 06:00 WBC 3.7 L (3.8-10.6) k/uL RBC 2.85 L (4.30-5.90) m/uL Hgb 9.0 L (13.0-17.5) gm/dL Hct 29.1 L (39.0-53.0) % MCV 102.0 H (80.0-100.0) fL MCHC 30.9 L (31.0-37.0) g/dL RDW 18.6 H (11.5-15.5) % Plt Count 141 L (150-450) k/uL Lymphocytes # 0.4 L (1.0-4.8) k/uL Sodium 134 L (137-145) mmol/L BUN 33 H (9-20) mg/dL Creatinine 2.23 H (0.66-1.25) mg/dL Calcium 6.5 L (8.4-10.2) mg/dL Total Bilirubin 10.2 H (0.2-1.3) mg/dL AST 119 H (17-59) U/L Alkaline Phosphatase 347 H (38-126) U/L Total Protein 5.8 L (6.3-8.2) g/dL Albumin 2.3 L (3.5-5.0) g/dL - Imaging and Cardiology MRCP report reviewed Assessment and Plan (1) Congestive heart failure Current Visit: Yes Status: Acute Priority: High Code(s): I50.9 - HEART FAILURE, UNSPECIFIED SNOMED Code(s): 32908800 (2) Elevated liver enzymes Current Visit: Yes Status: Acute Priority: High Code(s): R74.8 - ABNORMAL LEVELS OF OTHER SERUM ENZYMES SNOMED Code(s): 206241864 (3) Liver failure Current Visit: Yes Status: Acute Priority: High Code(s): K72.90 - HEPATIC FAILURE, UNSPECIFIED WITHOUT COMA SNOMED Code(s): 00857549 (4) Generalized weakness Current Visit: Yes Status: Acute Priority: High Code(s): R53.1 - WEAKNESS SNOMED Code(s): 14174807 (5) Prostate cancer Current Visit: Yes Status: Acute Priority: High Code(s): C61 - MALIGNANT NEOPLASM OF PROSTATE SNOMED Code(s): 077639622 Plan: Dr. Bernal discussed case with GI who is going to review MRCP report. Need to know if obstruction that can be corrected vs progressive disease in liver, in which case it would be very difficult to treat him. Await GI review and recommendations. F/U in AM Attests: I have performed H&P and developed impression and plan of care of patient, discussed with dictator. I agree with dictated note, documented as a scribe.
[2018-07-25] MEDS: SODIUM BICARBONATE TAB 650 MG TAB PO SCH (20:35)
[2018-07-25] MEDS: LACTATED RINGERS 1,000 ML IV SCH (20:37)
--- NOTE | 2018-07-25 21:49 | PN ---
PROGRESS NOTE Patient is seen for followup for acute kidney injury. He is currently sitting up in bed. The patient denies any significant complaints. He has been having pain and just received morphine. The patient is going down for a biliary stent placement. He has been voiding on his own. The patient is maintained on IV fluids. Oral intake is poor. PHYSICAL EXAMINATION: This morning blood pressure was 84/58, heart rate 61 per minute. Patient is afebrile. Examination of the heart S1, S2. Examination of the lungs, decreased breath sounds at bases. Abdomen is soft, nontender. Examination of the lower extremities shows edema 1+ bilaterally. Patient is jaundiced. LABS: Show sodium 134, potassium 4.2, BUN 33, serum creatinine 2.23, hemoglobin 9.0 g/dL, bilirubin is 10.2, calcium 6.5, albumin 2.3. ASSESSMENT: 1. Acute kidney injury, currently nonoliguric. Need to rule out urinary retention. Serum creatinine is slightly higher than yesterday. The patient is not on any nephrotoxic medications. He is maintained on gentle IV hydration with bicarb drip at 50 mL an hour. Oral intake remains poor. The significant bilirubinemia can also contribute to the acute kidney injury by causing acute tubular necrosis. 2. History of prostatic cancer with bladder mass status post cystectomy, ileal loop urostomy and colostomy. 3. Obstructive jaundice, most likely secondary to liver metastasis going for possible biliary stent placement. 4. Hypertension, controlled. The blood pressure is actually low. All medications are on hold including angiotensin receptor blockers. 5. Urinary tract infection with Enterobacter. Currently off of Bactrim, which patient had initially been on. 6. Paroxysmal atrial fibrillation with controlled ventricular response. PLAN: Continue to encourage increased oral intake, poor prognosis. I will discontinue the bicarb drip and switch to oral sodium bicarb. MMODL / IJN: [id number] /
[2018-07-26] MEDS: PANTOPRAZOLE 40 MG TABLET PO SCH (06:13)
[2018-07-26] MEDS ORDERED: INDOMETHACIN 50MG SUPPOSITORY RECTAL ONE (08:00)
[2018-07-26] MEDS: CHOLECALCIFEROL 1,000 UNIT TAB PO SCH (11:36)
[2018-07-26] MEDS: SODIUM BICARBONATE TAB 650 MG TAB PO SCH ×2 (11:36→19:54)
[2018-07-26] MEDS ORDERED: IV FLUID CONTINUATION 300 ML IV ONE (13:34)
[2018-07-26] MEDS ORDERED: GLYCOPYRROLATE 0.2 MG/ML 2 ML VIAL ONE (13:37)
[2018-07-26] MEDS ORDERED: LIDOCAINE 1% INJ 10MG/ML (20 ML MDV) ONE (13:37)
[2018-07-26] MEDS ORDERED: SUCCINYLCHOLINE CHLORIDE 100 MG/5 ML SYR IV ONE (13:37)
[2018-07-26] MEDS ORDERED: ROCURONIUM BROMIDE 10 MG/ML 10 ML VIAL IV ONE (13:37)
[2018-07-26] MEDS ORDERED: PROPOFOL 10 MG/ML 20 ML VIAL IV ONE (13:37)
[2018-07-26] MEDS ORDERED: NEOSTIGMINE 1 MG/ML 10 ML VIAL ONE (13:37)
[2018-07-26] MEDS ORDERED: IOHEXOL 300 MG/ML 50 ML BOTTLE MISCELLANE ONE (14:46)
[2018-07-26] MEDS: LACTATED RINGERS 1,000 ML IV SCH ×2 (14:48→15:01)
--- NOTE | 2018-07-26 15:00 | P.PN ---
Subjective Progress Note Date: 07/26/18 This is a 78-year-old male, patient of Dr. Almeida. He has a medical history of prostate cancer that was diagnosed in 2008 status post prostatectomy with radiation treatments. Patient was in remission until 2014 when he developed hematuria, at that time he was found to have a bladder mass and underwent resection with colostomy and urostomy. He is receiving current therapy with Cabozantinib and sees oncology on regular basis. Patient reports about a week ago he discontinued the Cabozantinib due to diarrhea, nausea, and vomiting. He did call his oncologist office who advised him to go to the emergency room to be evaluated. Patient's lab revealed hemoglobin 9.2, BUN 28, creatinine 1.91, total bilirubin 10.6, alk phos 334. Ultrasound showed no gallstones, ascites, extensive heterogenicity in the liver, consistent with tumor, and mild gallbladder wall thickening. Echocardiogram revealed atrial fibrillation, borderline left ventricular hypertrophy, ejection fraction 55-60% , moderate aortic stenosis, mild aortic regurgitation, no evidence of pulmonary hypertension, large pleural effusion. Chest x-ray showed atelectasis and effusions. Cardiology consulted, as well as nephrology and oncology. 2/3: Patient evaluated today, noted to be up in bedside chair. He denies any nausea, vomiting, diarrhea, chest pain or dizziness. MRCP has been ordered without contrast, will most likely be completed tomorrow. Cardiology, nephrology and oncology consult appreciated. He continues with IV fluids, losartan, amlodipine and Bactrim were discontinued due to acute kidney injury as per nephrology's recommendations. Bactrim was changed to ceftriaxone. Conjugated bilirubin 4.8, unconjugated bilirubin 1.4, total bilirubin 10.6, AST 114, ALT 47, alk phos 334. Vital signs are stable, blood pressure 96/59, heart rate 78, he remains afebrile. 2/4: Patient states he feels a little bit better from yesterday. He states he slept well. He did receive morphine last night that helped. He denies any shortness of breath while flat in bed. He has had very little output from his colostomy but is eating very little. Perez catheter is a medium color orange. He is scheduled for MRCP today at 4 PM, ordered by GI to evaluate biliary tree. Initially plan was home with hospice but family states that they have seen Dr. Bernal and there may be plan for aggressive treatment. Cardiology is following. Patient is not candidate for anticoagulation with paroxysmal atrial fibrillation. He is not currently on Lasix. Nephrology continues to follow the patient. Patient has been afebrile, blood pressure 110/63, heart rate running between 60 and 106, pulse ox 98% on room air. White count is 3.4, hemoglobin 9.9, platelet count 167, AST 138, ALT 44, alkaline phosphatase 360. BUN 28 and creatinine 1.86. Urine culture is positive for Enterobacter cloacae which is susceptible to ceftriaxone. Patient will be transferred to the [facility] floor without telemetry. Case management is following for discharge planning. 07/25: MRCP is limited by patient's body habitus. Metastatic disease. Bilateral pleural effusions. Ascites. There is some indication of biliary dilatation. Study is to be reviewed by and radiology to determine plan. If ERCP/ stent will not be of benefit, most likely patient will be placed under hospice and discharged home. Renal function is worsening with BUN 33 and creatinine 2.23. Patient is followed by Dr. Espitia. Patient states that he is not eating very much and is on a protein supplement. He has been afebrile, blood pressure 8458-139/65, pulse ox 92% on room air, heart rate running in the 60s to 80s. Hemoglobin is 9, platelet count 141. Total bilirubin 10.2, AST 119, ALT 43, alkaline phosphatase 347. 07/26: Patient is scheduled for ERCP today. He denies any abdominal pain. He continues to have jaundice. Patient remains afebrile, heart rate running in the 70s, pulse ox 93% on room air, blood pressure 85/55. Discussed ostomy with the patient's and she is requesting Neosporin as this is what she normally gets around the area to prevent inflammation and irritation. Recommend Flonase nasal spray be used at this area as it also contains some steroids to help with inflammation. We will try this in the hospital. Review Of Systems: Constitutional: No fever, no chills, no night sweats. No weight change. Reports weakness, reports fatigue reports lethargy. EENT: No headache. No blurred vision or double vision, no loss of vision. No loss of Hearing, no ringing in the ears, no dizziness. No nasal drainage or congestion. No epistaxis. No sore throat. Lungs: No shortness of breath, cough, no sputum production. No wheezing. Cardiovascular: No chest pain, no lower extremity edema. No palpitations. No paroxysmal nocturnal dyspnea. No orthopnea. No lightheadedness or dizziness. No syncopal episodes. Abdominal: No abdominal pain. No nausea, vomiting. No diarrhea. No constipation. No bloody or tarry stools reports loss of appetite. Genitourinary: No dysuria, increased frequency, urgency. No urinary retention. Musculoskeletal: No myalgias. No muscle weakness, no gait dysfunction, no frequent falls. No back pain. No neck pain. Integumentary: No wounds, no lesions. No rash or pruritus. No unusual bruising. No change in hair or nails. Neurologic: No aphasia. No facial droop. No change in mentation. No head injury. No headache. No paralysis. No paresthesia. Psychiatric: No depression. No anxiety. No mood swings. Endocrine: No abnormal blood sugars. No weight change. No excessive sweating or thirst. No cold intolerance. Objective - Vital Signs Vital signs: Vital Signs Temp 98.4 F 07/26/18 06:45 Pulse 114 H 07/26/18 06:45 Resp 20 07/26/18 06:45 BP 85/55 07/26/18 06:45 Pulse Ox 93 L 07/26/18 06:45 Intake & Output 07/25/18 07/26/18 07/26/18 18:59 06:59 18:59 Intake Total 350 40 Output Total 300 Balance 350 -260 Weight 78.9 kg Intake: Intake, IV Titration 350 Amount Dextrose 5% in Water 1, 350 000 ml @ 50 mls/hr IV . Q23H ANGELIQUE with Sodium Bicarb (1 Meq/ml) 150 ml Rx#:[id number] Oral 0 40 Output: Urine 300 Other: # Voids 0 # Bowel Movements 0 - Exam General appearance: cooperative, no acute distress, patient resting in bed. Son at the bedside. - EENT Eyes: EOMI, PERRLA, scleral icterus ENT: hearing grossly normal, normal oropharynx - Neck Neck: no lymphadenopathy, normal ROM, no stridor, no thyromegaly Thyroid: bilateral: normal size, negative: firm, nodule - Respiratory Respiratory: bilateral: CTA, negative: dullness, rales, rhonchi, wheezing - Cardiovascular Bilateral lower extremity edema Rhythm: irregularly irregular Heart sounds: normal: S1, S2 - Gastrointestinal Colostomy and urostomy General gastrointestinal: no distended, normal bowel sounds, soft, no tenderness - Integumentary Integumentary: jaundiced - Neurologic Neurologic: CNII-XII intact - Musculoskeletal Musculoskeletal: generalized weakness, strength equal bilaterally, no right sided weakness, no left sided weakness - Psychiatric Psychiatric: A&O x's 3 - Labs CBC & Chem 7: 07/25/18 06:00 07/25/18 06:00 Assessment and Plan Plan: 1. 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 GI to perform ERCP today. 2. Acute on chronic diastolic heart failure: Cardiology on consult, echocardiogram resulted, 3. Acute kidney injury secondary to dehydration from poor oral intake. nephrology on consult, Bactrim, losartan and amlodipine held. Patient was placed on a bicarb drip. 4. Hypertension: Daily medications Norvasc 5 mg daily and Cozaar 150 mg held due to hypotension and acute kidney injury. 5. Enterobacter urinary tract infection: Bactrim as outpatient discontinued, urine cultures are pending, started on ceftriaxone. 6. Paroxysmal atrial fibrillation: Currently rate controlled, not a candidate for anticoagulation 7. Hypotension. Blood pressure medications on hold 6. GI, DVT prophylaxis: Continue Protonix, SEDs Discharge plan: Home with home care or hospice in the next 24 hours. The above impression and plan of care have been discussed and directed by signing physician. Jen Erwin nurse practitioner acting as scribe for signing physician.
--- NOTE | 2018-07-26 15:22 | P.PCN ---
Date of Procedure: 07/26/18 Description of Procedure: Brief history: The patient is a 78-year-old male with medical history of metastatic prostate cancer status post radical prostatectomy, radiation therapy and multiple lines of chemotherapy was found to have metastatic disease in 2014 when he underwent colon and bladder resection information of a colostomy and urostomy who presented to the hospital with complaints of weakness, fatigue and jaundice. The patient has been on multiple chemotherapies in the past most recently treated with Cabozantinib, which was stopped approximately one week ago due to diarrhea, decreased appetite and indigestion. He presented to the hospital reporting increased fatigue, and shortness of breath worse with exertion which had been progressing prior to presentation. The patient also reports that over the past few weeks he has noticed increasing jaundice and darkness of his urine. On presentation to the hospital the patient had a WBC count 4, RBC 9.2, platelets 162,000, INR 1.3, total bilirubin 11, alkaline phosphatase 331, AST 111, ALT 44. The patient also had an ultrasound which showed multiple liver lesions with the largest measuring 7.4 x 5.8 cm as well as gallbladder wall thickening. MRI was ordered and suggestive of multiple large liver lesions with biliary dilation. Total bilirubin remained elevated an ERCP was scheduled for stent placement. Procedure performed: ERCP with cholangiogram, sphincterotomy, balloon sweep and stent placement Preoperative diagnoses: Malignant biliary obstruction, elevated bilirubin IV sedation per anesthesia Estimated blood loss: Minimal. Procedure: After informed consent was obtained from the patient and after the risks benefits and complications including bleeding perforation and pancreatitis explained in detail the patient was brought into the endoscopy unit. The patient was placed in prone position and IV conscious sedation was administered by anesthesia. The Olympus side-viewing duodenoscope was then inserted into the mouth and esophagus intubated without any difficulty. The scope was gradually advanced into the stomach and duodenum. The major papilla was identified without any difficulty. Cannulation of the major papilla was performed with a sphincterotome. A wire was then passed into the common bile duct. Cholangiogram was performed and confirmed wire placement in the bile duct with a minimally dilated CBD with possible filling defect in the lower common bile duct noted. A 8 mm sphincterotomy was then performed. The sphincterotome was then withdrawn through the scope and a balloon was passed over the wire into the common bile duct and inflated to 8.5 mm. Multiple passes of the common bile duct with the inflated balloon were performed with no choledocholithiasis seen. Good bile flow was noted. A 5 cm 7-Slovenian double pigtailed plastic stent was then successfully placed into the common bile duct. The procedure was then completed and the side-viewing duodenum scope withdrawn. The patient tolerated the procedure well. Impression: 1. ERCP with cholangiogram, sphincterotomy, balloon sweep and placement of a plastic double pigtailed stent 2. Good bile flow noted at the end of the procedure Recommendations: The findings of this examination were discussed with the patient as well as a family. Okay for full liquid diet tonight. Monitor for signs and symptoms of pancreatitis. Monitor liver enzymes. The patient stent should be removed in 6- 8 weeks and replaced with a metal stent pending patient's clinical status and course. The gastroenterology team will stand by, please call us back with any questions or concerns.
--- NOTE | 2018-07-26 15:46 | FL ---
EXAMINATION TYPE: FL ERCP biliary duct only DATE OF EXAM: 07/26/2018 COMPARISON: MRCP 2017 HISTORY: Biliary dilation, elevated bilirubin Fluoroscopy support supplied to the referring clinician. See dictated report from gastroenterology, 3 intraoperative images were obtained, 16 seconds fluoroscopy time
[2018-07-26] MEDS: FLUTICASONE 50MCG/SPRAY NASAL 16GM MISCELLANE SCH (16:57)
--- NOTE | 2018-07-26 17:26 | P.PN ---
Subjective Progress Note Date: 07/26/18 Principal diagnosis: liver failure In f/u pt maintains his sense of humor, no physical c/o on a 10 point ROS Objective - Vital Signs Vital signs: Vital Signs Temp 98 F 07/26/18 15:01 Pulse 74 07/26/18 16:00 Resp 16 07/26/18 15:30 BP 108/56 07/26/18 15:30 Pulse Ox 93 L 07/26/18 15:30 Intake & Output 07/25/18 07/26/18 07/26/18 18:59 06:59 18:59 Intake Total 350 40 600 Output Total 300 Balance 350 -260 600 Weight 78.9 kg Intake: IV 600 Intake, IV Titration 350 0 Amount Dextrose 5% in Water 1, 350 000 ml @ 50 mls/hr IV . Q23H ANGELIQUE with Sodium Bicarb (1 Meq/ml) 150 ml Rx#:[id number] cefTRIAXone 1,000 mg In 0 Sodium Chloride 0.9% 50 ml @ 100 mls/hr IVPB HS ANGELIQUE Rx#:[id number] Oral 0 40 Output: Urine 300 Other: # Voids 0 # Bowel Movements 0 - Exam Pt laying in bed NAD, A&O x 4, respirations even and unlabored - Labs CBC & Chem 7: 07/25/18 06:00 07/25/18 06:00 Assessment and Plan (1) Congestive heart failure Current Visit: Yes Status: Acute Priority: High Code(s): I50.9 - HEART FAILURE, UNSPECIFIED SNOMED Code(s): 10629011 (2) Elevated liver enzymes Narrative/Plan: Pending GI evaluation to see if jaundice is due to obstruction that could be relieved through intervention. Current Visit: Yes Status: Acute Priority: High Code(s): R74.8 - ABNORMAL LEVELS OF OTHER SERUM ENZYMES SNOMED Code(s): 384075482 (3) Liver failure Current Visit: Yes Status: Acute Priority: High Code(s): K72.90 - HEPATIC FAILURE, UNSPECIFIED WITHOUT COMA SNOMED Code(s): 91084744 (4) Generalized weakness Current Visit: Yes Status: Acute Priority: High Code(s): R53.1 - WEAKNESS SNOMED Code(s): 71434783 (5) Prostate cancer Current Visit: Yes Status: Acute Priority: High Code(s): C61 - MALIGNANT NEOPLASM OF PROSTATE SNOMED Code(s): 649931406 Plan: Attests: I have performed H&P and developed impression and plan of care of patient, discussed with dictator. I agree with dictated note, documented as a scribe.
[2018-07-26] MEDS: MORPHINE SULFATE 4 MG/ML SYRINGE IVP PRN ×2 (17:41→21:49)
--- NOTE | 2018-07-26 18:44 | PN ---
PROGRESS NOTE The patient is seen for followup for acute kidney injury. This morning, patient is sitting up in bed. He is comfortable. He is not in any acute distress. The patient will be going down for ERCP today. Blood pressure this morning was 85/55, heart rate 74 per minute. Patient is afebrile. Examination of the heart S1, S2. Examination of the lungs bilateral breath sounds are heard. Abdomen is soft, nontender. Examination of lower extremities shows edema 1+ bilaterally. EM[employer]OYEE [employer]ELOP[employer]IST exam is grossly intact. The patient is jaundiced. LABS SHOW: Sodium 134, potassium 4.2, serum creatinine 2.23 from yesterday. ASSESSMENT: 1. Acute kidney injury, acute tubular necrosis, currently nonoliguric. Maintained on gentle IV hydration. 2. History of prostatic cancer with bladder mass status post cystectomy, ileal loop urostomy and colostomy. 3. Obstructive jaundice secondary to liver metastasis going for a biliary stent today. 4. Hypertension. Blood pressure is currently low. Angiotensin receptor blockers are on hold. 5. Urinary tract infection with Enterobacter. 6. Paroxysmal atrial fibrillation with controlled ventricular response. PLAN: Continue with gentle IV hydration. Continue to encourage increased oral intake. Repeat labs in a.m. MMODL / IJN: [id number] /
[2018-07-27] MEDS: SODIUM BICARBONATE TAB 650 MG TAB PO SCH ×2 (07:44→22:43)
[2018-07-27] MEDS: PANTOPRAZOLE 40 MG TABLET PO SCH (07:44)
[2018-07-27 08:03] LABS: Anisocytosis Slight; HCT 30.6 % (39.0-53.0); HGB 9.2 gm/dL (13.0-17.5); Hypochromasia Marked; MCH 31.2 pg (25.0-35.0); MCV 103.8 fL (80.0-100.0); Macrocytosis Marked; Mean Platelet Volume 8.6; Platelet Count 165 k/uL (150-450); RBC 2.95 m/uL (4.30-5.90); RDW 18.5 % (11.5-15.5); WBC 4.5 k/uL (3.8-10.6)
[2018-07-27 08:34] LABS: Albumin 2.3 g/dL (3.5-5.0); Potassium 4.5 mmol/L (3.5-5.1); Total Bilirubin 9.4 mg/dL (0.2-1.3); Total Protein 5.8 g/dL (6.3-8.2)
[2018-07-27 09:00] LABS: Calcium 6.3 mg/dL (8.4-10.2)
[2018-07-27] MEDS: ONDANSETRON 4 MG/2 ML VIAL IVP PRN (09:58)
[2018-07-27] MEDS ORDERED: SODIUM CHLORIDE 0.9% IVPB ONE (11:30)
[2018-07-27] MEDS ORDERED: CALCIUM CHLORIDE IVPB ONE (11:30)
--- NOTE | 2018-07-27 12:18 | P.PN ---
Subjective Patient is seen in follow-up for acute kidney injury. Renal function is worse today with creatinine up to 2.93. Patient had a biliary stent placed yesterday. He has a urostomy in place. Oral intake remains poor. Denies chest pain or shortness of breath. Vital signs are stable. General: The patient appeared well nourished and normally developed. Appears jaundiced. HEENT: Head exam is unremarkable. Neck is without jugular venous distension. LUNGS: Lungs are clear to auscultation and percussion. Breath sounds decreased. HEART: Rate and Rhythm are regular. First and second heart sounds normal. No murmurs, rubs or gallops. ABDOMEN: Abdominal exam reveals normal bowel sounds. Non-tender and non- distended. No evidence of peritonitis. EXTREMITITES: No clubbing, cyanosis, or edema. Objective - Vital Signs Vital signs: Vital Signs Temp 97.9 F 07/27/18 04:44 Pulse 96 07/27/18 08:00 Resp 16 07/27/18 08:00 BP 87/53 07/27/18 04:44 Pulse Ox 93 L 07/27/18 04:44 Intake & Output 07/26/18 07/27/18 07/27/18 18:59 06:59 18:59 Intake Total 600 640 Output Total 420 Balance 600 220 Intake: IV 600 Intake, IV Titration 0 Amount cefTRIAXone 1,000 mg In 0 Sodium Chloride 0.9% 50 ml @ 100 mls/hr IVPB HS ANGELIQUE Rx#:[id number] Oral 640 Output: Urine 420 Other: # Voids 1 - Labs CBC & Chem 7: 07/27/18 07:06 07/27/18 07:06 Labs: Abnormal Lab Results - Last 24 Hours (Table) 07/27/18 07/27/18 Range/Units 07:06 07:06 RBC 2.95 L (4.30-5.90) m/uL Hgb 9.2 L (13.0-17.5) gm/dL Hct 30.6 L (39.0-53.0) % MCV 103.8 H (80.0-100.0) fL MCHC 30.0 L (31.0-37.0) g/dL RDW 18.5 H (11.5-15.5) % Sodium 136 L (137-145) mmol/L BUN 39 H (9-20) mg/dL Creatinine 2.73 H (0.66-1.25) mg/dL Calcium 6.3 L* (8.4-10.2) mg/dL Total Bilirubin 9.4 H (0.2-1.3) mg/dL AST 111 H (17-59) U/L Alkaline Phosphatase 310 H (38-126) U/L Total Protein 5.8 L (6.3-8.2) g/dL Albumin 2.3 L (3.5-5.0) g/dL Assessment and Plan Plan: Assessment: 1. Acute kidney injury secondary to ATN. Concern for pigmented nephropathy from elevated bilirubin. Creatinine 2.73 today. 2. History of prostate cancer with bladder mass status post cystectomy, ileal loop urostomy and colostomy placement. Oncology following. 3. Obstructive jaundice secondary to metastatic disease status post biliary stent placement on July 26. 4. UTI with urine culture positive for Enterobacter. Maintained on antibiotics. 5. Hypocalcemia secondary to acute kidney injury. Corrected calcium for albumin is near 7.4. 6. History of hypertension. Blood pressure low this morning. 7. Metabolic acidosis secondary to acute kidney injury maintained on oral sodium bicarbonate. Plan: I will increase rate of normal saline to 75 mL an hour. 1 g IV calcium today. No evidence of urinary retention. Repeat electrolytes in the morning.
--- NOTE | 2018-07-27 12:41 | P.PN ---
Subjective Progress Note Date: 07/27/18 This is a 78-year-old male, patient of Dr. Almeida. He has a medical history of prostate cancer that was diagnosed in 2008 status post prostatectomy with radiation treatments. Patient was in remission until 2014 when he developed hematuria, at that time he was found to have a bladder mass and underwent resection with colostomy and urostomy. He is receiving current therapy with Cabozantinib and sees oncology on regular basis. Patient reports about a week ago he discontinued the Cabozantinib due to diarrhea, nausea, and vomiting. He did call his oncologist office who advised him to go to the emergency room to be evaluated. Patient's lab revealed hemoglobin 9.2, BUN 28, creatinine 1.91, total bilirubin 10.6, alk phos 334. Ultrasound showed no gallstones, ascites, extensive heterogenicity in the liver, consistent with tumor, and mild gallbladder wall thickening. Echocardiogram revealed atrial fibrillation, borderline left ventricular hypertrophy, ejection fraction 55-60% , moderate aortic stenosis, mild aortic regurgitation, no evidence of pulmonary hypertension, large pleural effusion. Chest x-ray showed atelectasis and effusions. Cardiology consulted, as well as nephrology and oncology. 2/3: Patient evaluated today, noted to be up in bedside chair. He denies any nausea, vomiting, diarrhea, chest pain or dizziness. MRCP has been ordered without contrast, will most likely be completed tomorrow. Cardiology, nephrology and oncology consult appreciated. He continues with IV fluids, losartan, amlodipine and Bactrim were discontinued due to acute kidney injury as per nephrology's recommendations. Bactrim was changed to ceftriaxone. Conjugated bilirubin 4.8, unconjugated bilirubin 1.4, total bilirubin 10.6, AST 114, ALT 47, alk phos 334. Vital signs are stable, blood pressure 96/59, heart rate 78, he remains afebrile. 2/4: Patient states he feels a little bit better from yesterday. He states he slept well. He did receive morphine last night that helped. He denies any shortness of breath while flat in bed. He has had very little output from his colostomy but is eating very little. Perez catheter is a medium color orange. He is scheduled for MRCP today at 4 PM, ordered by GI to evaluate biliary tree. Initially plan was home with hospice but family states that they have seen Dr. Bernal and there may be plan for aggressive treatment. Cardiology is following. Patient is not candidate for anticoagulation with paroxysmal atrial fibrillation. He is not currently on Lasix. Nephrology continues to follow the patient. Patient has been afebrile, blood pressure 110/63, heart rate running between 60 and 106, pulse ox 98% on room air. White count is 3.4, hemoglobin 9.9, platelet count 167, AST 138, ALT 44, alkaline phosphatase 360. BUN 28 and creatinine 1.86. Urine culture is positive for Enterobacter cloacae which is susceptible to ceftriaxone. Patient will be [facility] floor without telemetry. Case management is following for discharge planning. 07/25: MRCP is limited by patient's body habitus. Metastatic disease. Bilateral pleural effusions. Ascites. There is some indication of biliary dilatation. Study is to be reviewed by and radiology to determine plan. If ERCP/ stent will not be of benefit, most likely patient will be placed under hospice and discharged home. Renal function is worsening with BUN 33 and creatinine 2.23. Patient is followed by Dr. Espitia. Patient states that he is not eating very much and is on a protein supplement. He has been afebrile, blood pressure 8458-139/65, pulse ox 92% on room air, heart rate running in the 60s to 80s. Hemoglobin is 9, platelet count 141. Total bilirubin 10.2, AST 119, ALT 43, alkaline phosphatase 347. 07/26: Patient is scheduled for ERCP today. He denies any abdominal pain. He continues to have jaundice. Patient remains afebrile, heart rate running in the 70s, pulse ox 93% on room air, blood pressure 85/55. Discussed ostomy with the patient's and she is requesting Neosporin as this is what she normally gets around the area to prevent inflammation and irritation. Recommend Flonase nasal spray be used at this area as it also contains some steroids to help with inflammation. We will try this in the hospital. 07/27: Yesterday, patient underwent ERCP with cholangiogram, sphincterotomy, balloon sweep and stent placement with Dr. Bustamante. Patient was cleared for full liquid diet last night and plan to monitor for pancreatitis. Patient have the stent removed and 6-8 weeks and replace with metal stent. Repeat lab work reveals white count 4.5, hemoglobin 9.2, platelet count 165. BUN 39, creatinine 2.73, total bilirubin slightly improved at 9.4, AST 111, ALT 43, alkaline phosphatase 310. Calcium replace by Dr. Paniagua. He has recommended IV fluids at 75 mL per hour. Encourage increased oral intake. Patient denies any pain. He is requesting that his IMV advance which will be changed to regular. He is asking for smith pie. Family members present. The bedside. All questions have been answered. Plan to monitor liver test and once he is tolerating diet, discharged home. Review Of Systems: Constitutional: No fever, no chills, no night sweats. No weight change. Reports weakness, reports fatigue reports lethargy. EENT: No headache. No blurred vision or double vision, no loss of vision. No loss of Hearing, no ringing in the ears, no dizziness. No nasal drainage or congestion. No epistaxis. No sore throat. Lungs: No shortness of breath, cough, no sputum production. No wheezing. Cardiovascular: No chest pain, no lower extremity edema. No palpitations. No paroxysmal nocturnal dyspnea. No orthopnea. No lightheadedness or dizziness. No syncopal episodes. Abdominal: No abdominal pain. No nausea, vomiting. No diarrhea. No constipation. No bloody or tarry stools. Denies loss of appetite. Genitourinary: No dysuria, increased frequency, urgency. No urinary retention. Musculoskeletal: No myalgias. No muscle weakness, no gait dysfunction, no frequent falls. No back pain. No neck pain. Integumentary: No wounds, no lesions. No rash or pruritus. No unusual bruising. No change in hair or nails. Neurologic: No aphasia. No facial droop. No change in mentation. No head injury. No headache. No paralysis. No paresthesia. Psychiatric: No depression. No anxiety. No mood swings. Endocrine: No abnormal blood sugars. No weight change. No excessive sweating or thirst. No cold intolerance. Objective - Vital Signs Vital signs: Vital Signs Temp 97.9 F 07/27/18 04:44 Pulse 96 07/27/18 04:44 Resp 16 07/27/18 04:44 BP 87/53 07/27/18 04:44 Pulse Ox 93 L 07/27/18 04:44 Intake & Output 07/26/18 07/27/18 07/27/18 18:59 06:59 18:59 Intake Total 600 640 Output Total 420 Balance 600 220 Intake: IV 600 Intake, IV Titration 0 Amount cefTRIAXone 1,000 mg In 0 Sodium Chloride 0.9% 50 ml @ 100 mls/hr IVPB HS ANGELIQUE Rx#:[id number] Oral 640 Output: Urine 420 Other: # Voids 1 - Exam General appearance: cooperative, no acute distress, patient resting in bed. Multiple family members are at the bedside. - EENT Eyes: EOMI, PERRLA, scleral icterus ENT: hearing grossly normal, normal oropharynx - Neck Neck: no lymphadenopathy, normal ROM, no stridor, no thyromegaly Thyroid: bilateral: normal size, negative: firm, nodule - Respiratory Respiratory: bilateral: CTA, negative: dullness, rales, rhonchi, wheezing - Cardiovascular Bilateral lower extremity edema Rhythm: irregularly irregular Heart sounds: normal: S1, S2 - Gastrointestinal Colostomy and urostomy General gastrointestinal: no distended, normal bowel sounds, soft, no tenderness - Integumentary Integumentary: jaundiced - Neurologic Neurologic: CNII-XII intact - Musculoskeletal Musculoskeletal: generalized weakness, strength equal bilaterally, no right sided weakness, no left sided weakness - Psychiatric Psychiatric: A&O x's 3 - Labs CBC & Chem 7: 07/27/18 07:06 07/27/18 07:06 Labs: Abnormal Lab Results - Last 24 Hours (Table) 07/27/18 Range/Units 07:06 RBC 2.95 L (4.30-5.90) m/uL Hgb 9.2 L (13.0-17.5) gm/dL Hct 30.6 L (39.0-53.0) % MCV 103.8 H (80.0-100.0) fL MCHC 30.0 L (31.0-37.0) g/dL RDW 18.5 H (11.5-15.5) % Assessment and Plan Plan: 1. 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 Status post ERCP and stent. 2. Acute on chronic diastolic heart failure: Cardiology on consult, echocardiogram resulted, 3. Acute kidney injury secondary and acute tubular necrosis to dehydration from poor oral intake. Bactrim, losartan and amlodipine held. Continue IV hydration and increase oral intake. Oral sodium bicarb Nephrology consult appreciated. 4. Hypertension: Daily medications Norvasc 5 mg daily and Cozaar 150 mg held due to hypotension and acute kidney injury. 5. Enterobacter urinary tract infection: Bactrim as outpatient discontinued, urine cultures are pending, started on ceftriaxone. 6. Paroxysmal atrial fibrillation: Currently rate controlled, not a candidate for anticoagulation 7. Hypotension. Blood pressure medications on hold 6. GI, DVT prophylaxis: Continue Protonix, SEDs 7. Hypocalcemia, status post replacement Discharge plan: Home with home care in the next 24 hours. The above impression and plan of care have been discussed and directed by signing physician. Jen Erwin nurse practitioner acting as scribe for signing physician.
--- NOTE | 2018-07-27 13:21 | P.PN ---
Subjective Progress Note Date: 07/27/18 Principal diagnosis: Obstructive jaundice Status post ERCP biliary stent placement. Total bilirubin 9.4 slightly improved. No abdominal complaints. Afebrile. Objective - Vital Signs Vital signs: Vital Signs Temp 96.2 F L 07/27/18 12:15 Pulse 82 07/27/18 12:15 Resp 16 07/27/18 12:15 BP 90/54 07/27/18 12:15 Pulse Ox 95 07/27/18 12:15 Intake & Output 07/26/18 07/27/18 07/27/18 18:59 06:59 18:59 Intake Total 600 640 Output Total 420 Balance 600 220 Intake: IV 600 Intake, IV Titration 0 Amount cefTRIAXone 1,000 mg In 0 Sodium Chloride 0.9% 50 ml @ 100 mls/hr IVPB HS ANGELIQUE Rx#:[id number] Oral 640 Output: Urine 420 Other: # Voids 1 - Exam General appearance: The patient is alert, oriented, in no acute distress. Jaundice. HET: Head is normocephalic and atraumatic. Pupils are equal and reactive. Oropharynx is clear without lesions. Sclerae icterus. Neck: Supple without lymphadenopathy. Trachea midline. Heart: S1 S2. Regular rate and rhythm. Lungs: No crackles or wheezes are heard. Abdomen: Soft, nontender, nondistended with bowel sounds. No peritoneal signs. No palpable organomegaly or masses. Extremities: Normal skin color and turgor. No cyanosis, rash, ulceration, clubbing, or edema. Radial and pedal pulses are 2/4 bilaterally. Neurological: No focal deficits. Strength and sensation are grossly intact. - Labs CBC & Chem 7: 07/27/18 07:06 07/27/18 07:06 Labs: Abnormal Lab Results - Last 24 Hours (Table) 07/27/18 07/27/18 Range/Units 07:06 07:06 RBC 2.95 L (4.30-5.90) m/uL Hgb 9.2 L (13.0-17.5) gm/dL Hct 30.6 L (39.0-53.0) % MCV 103.8 H (80.0-100.0) fL MCHC 30.0 L (31.0-37.0) g/dL RDW 18.5 H (11.5-15.5) % Sodium 136 L (137-145) mmol/L BUN 39 H (9-20) mg/dL Creatinine 2.73 H (0.66-1.25) mg/dL Calcium 6.3 L* (8.4-10.2) mg/dL Total Bilirubin 9.4 H (0.2-1.3) mg/dL AST 111 H (17-59) U/L Alkaline Phosphatase 310 H (38-126) U/L Total Protein 5.8 L (6.3-8.2) g/dL Albumin 2.3 L (3.5-5.0) g/dL Assessment and Plan Assessment: Impression: 1. Obstructive jaundice malignant status post ERCP biliary stent placement with mild improvement in liver function tests. 2. Metastatic prostate cancer. Plan: 1. Continue monitoring liver function tests. Diet as tolerated. Follow-up in office in 2-3 weeks for reevaluation and discussion of outpatient ERCP placement of biliary stent with metal stent pending his clinical course. Assessment and plan a care discussed with Dr. Bustamante
[2018-07-27] MEDS: FLUTICASONE 50MCG/SPRAY NASAL 16GM MISCELLANE SCH (14:36)
[2018-07-27] MEDS: CHOLECALCIFEROL 1,000 UNIT TAB PO SCH (14:36)
[2018-07-27] MEDS: SODIUM CHLORIDE 0.9% 1,000 ML IV SCH ×2 (14:36→22:47)
[2018-07-27] MEDS: METOCLOPRAMIDE 5 MG/ML 2 ML VIAL IVP PRN (14:39)
--- NOTE | 2018-07-27 15:10 | US ---
EXAMINATION TYPE: US kidneys/renal and bladder DATE OF EXAM: 07/27/2018 COMPARISON: CT CLINICAL HISTORY: brian. EXAM MEASUREMENTS: Right Kidney: 8.6 x 5.5 x 4.8 cm Left Kidney: 9.8 x 5.2 x 4.5 cm Technically difficult study. Patient has ascites, metastatic liver disease, no bladder. Right Kidney: No hydronephrosis or masses seen, atrophic. Left Kidney: No hydronephrosis or masses seen Bladder: surgically absent Limited visualization of bilateral kidneys. IMPRESSION: Right kidney somewhat atrophic with no definite hydronephrosis or nephrolithiasis. There is a small a mount of ascites.
--- NOTE | 2018-07-27 16:47 | P.PN ---
Subjective Progress Note Date: 07/27/18 Principal diagnosis: liver failure In f/u pt has c/o confusion last night, better today, he is more alert, moving more, family noted improvements in mentation and activity. Pt denies fever, nausea, abd pain, he has mild bloating. Objective - Vital Signs Vital signs: Vital Signs Temp 96.2 F L 07/27/18 12:15 Pulse 82 07/27/18 12:15 Resp 16 07/27/18 12:15 BP 90/54 07/27/18 12:15 Pulse Ox 95 07/27/18 12:15 Intake & Output 07/26/18 07/27/18 07/27/18 18:59 06:59 18:59 Intake Total 600 640 Output Total 420 Balance 600 220 Intake: IV 600 Intake, IV Titration 0 Amount cefTRIAXone 1,000 mg In 0 Sodium Chloride 0.9% 50 ml @ 100 mls/hr IVPB HS ANGELIQUE Rx#:[id number] Oral 640 Output: Urine 420 Other: # Voids 1 - Constitutional General appearance: Present: cooperative, no acute distress, thin - EENT EENT Comment(s): scleral icterus looks significantly less Eyes: Present: EOMI ENT: Present: hearing grossly normal - Respiratory Respiratory: bilateral: CTA, diminished - Cardiovascular Rhythm: regular Heart sounds: normal: S1, S2 - Peripheral edema leg Peripheral Edema: bilateral: None - Gastrointestinal General gastrointestinal: Present: distended, normal bowel sounds, soft - Integumentary Integumentary Comment(s): jaundice better, pt has some pink to his cheeks - Neurologic Neurologic: Present: CNII-XII intact - Musculoskeletal Musculoskeletal: Present: generalized weakness - Psychiatric Psychiatric Comment(s): He does admit to having some confusion last night during room transfer Psychiatric: Present: A&O x's 3, appropriate affect, intact judgment & insight - Labs CBC & Chem 7: 07/27/18 07:06 07/27/18 07:06 Labs: Abnormal Lab Results - Last 24 Hours (Table) 07/27/18 07/27/18 Range/Units 07:06 07:06 RBC 2.95 L (4.30-5.90) m/uL Hgb 9.2 L (13.0-17.5) gm/dL Hct 30.6 L (39.0-53.0) % MCV 103.8 H (80.0-100.0) fL MCHC 30.0 L (31.0-37.0) g/dL RDW 18.5 H (11.5-15.5) % Sodium 136 L (137-145) mmol/L BUN 39 H (9-20) mg/dL Creatinine 2.73 H (0.66-1.25) mg/dL Calcium 6.3 L* (8.4-10.2) mg/dL Total Bilirubin 9.4 H (0.2-1.3) mg/dL AST 111 H (17-59) U/L Alkaline Phosphatase 310 H (38-126) U/L Total Protein 5.8 L (6.3-8.2) g/dL Albumin 2.3 L (3.5-5.0) g/dL Assessment and Plan (1) Congestive heart failure Narrative/Plan: Cardiology management Current Visit: Yes Status: Acute Priority: High Code(s): I50.9 - HEART FAILURE, UNSPECIFIED SNOMED Code(s): 87979122 (2) Elevated liver enzymes Narrative/Plan: Improved post stenting Current Visit: Yes Status: Acute Priority: High Code(s): R74.8 - ABNORMAL LEVELS OF OTHER SERUM ENZYMES SNOMED Code(s): 775587844 (3) Liver failure Narrative/Plan: Pt had biliary stenting with significant clinical improvement. Current Visit: Yes Status: Acute Priority: High Code(s): K72.90 - HEPATIC FAILURE, UNSPECIFIED WITHOUT COMA SNOMED Code(s): 24007369 (4) Generalized weakness Narrative/Plan: Pt is planning on home care with PT/OT. Current Visit: Yes Status: Acute Priority: High Code(s): R53.1 - WEAKNESS SNOMED Code(s): 72491256 (5) Prostate cancer Narrative/Plan: Hold cabometyx. F/U scheduled with maribel Huntley in chart. Plan of care will be determined then. Pt will cont lupron and RANK ligand inhibitor outpatient. Current Visit: Yes Status: Acute Priority: High Code(s): C61 - MALIGNANT NEOPLASM OF PROSTATE SNOMED Code(s): 849591951
[2018-07-27] MEDS ORDERED: SODIUM CHLORIDE 0.9% 50 ML BAG ONE (22:44)
[2018-07-27] MEDS ORDERED: cefTRIAXone 1 GM VIAL ONE (22:44)
[2018-07-28] MEDS: ONDANSETRON 4 MG/2 ML VIAL IVP PRN (07:48)
[2018-07-28] MEDS: PANTOPRAZOLE 40 MG TABLET PO SCH (07:48)
[2018-07-28 08:03] LABS: Anisocytosis Slight; HCT 33.8 % (39.0-53.0); HGB 10.1 gm/dL (13.0-17.5); Hypochromasia Moderate; MCH 30.9 pg (25.0-35.0); MCHC 29.9 g/dL (31.0-37.0); MCV 103.4 fL (80.0-100.0); Macrocytosis Moderate; Mean Platelet Volume 8.3; Platelet Count 185 k/uL (150-450); RBC 3.27 m/uL (4.30-5.90); RDW 18.2 % (11.5-15.5); WBC 7.3 k/uL (3.8-10.6)
[2018-07-28] MEDS: FLUTICASONE 50MCG/SPRAY NASAL 16GM MISCELLANE SCH (08:06)
[2018-07-28] MEDS: SODIUM BICARBONATE TAB 650 MG TAB PO SCH ×2 (08:07→19:55)
[2018-07-28 08:12] LABS: Albumin 2.6 g/dL (3.5-5.0); Calcium 6.8 mg/dL (8.4-10.2); Potassium 4.5 mmol/L (3.5-5.1); Total Bilirubin 9.9 mg/dL (0.2-1.3); Total Protein 6.6 g/dL (6.3-8.2)
[2018-07-28] MEDS: METOCLOPRAMIDE 5 MG/ML 2 ML VIAL IVP PRN (11:25)
[2018-07-28] MEDS: CHOLECALCIFEROL 1,000 UNIT TAB PO SCH (12:14)
--- NOTE | 2018-07-28 12:38 | XR ---
Abdomen HISTORY: Distention, emesis Frontal view of the abdomen on 2 images correlated to prior abdomen 01/09/2015, bone scan 03/31/2018, CT 03/31/2018 Postop change noted to the right hip. There is a double-J stent overlying the region of the duodenum and biliary system. Contrast material present within the gallbladder. Metallic coils present over the left hemiabdomen. There are vascular calcifications. Arthropathy noted in the left hip. Degenerative disc changes in the lumbar spine, mild spinal curvature. Sclerosis again noted within the pelvis com patible with patient's history metastasis. Basilar increased density greater in the left hemithorax, there is retrocardiac density obscuring the hemidiaphragms. There are air-filled loops of bowel, stom ach. No pneumoperitoneum. IMPRESSION: Probable left lower lobe atelectasis versus pneumonia and associated effusion. Metastatic disease. Postprocedural changes. There may be an underlying ileus, correlate for enteritis, follow-u p as indicated should bowel obstruction be suspected clinically.
[2018-07-28] MEDS ORDERED: FUROSEMIDE 10 MG/ML 4 ML VIAL IV STA (12:59)
--- NOTE | 2018-07-28 13:31 | P.PN ---
Subjective Progress Note Date: 07/28/18 This is a 78-year-old male, patient of Dr. Almeida. He has a medical history of prostate cancer that was diagnosed in 2008 status post prostatectomy with radiation treatments. Patient was in remission until 2014 when he developed hematuria, at that time he was found to have a bladder mass and underwent resection with colostomy and urostomy. He is receiving current therapy with Cabozantinib and sees oncology on regular basis. Patient reports about a week ago he discontinued the Cabozantinib due to diarrhea, nausea, and vomiting. He did call his oncologist office who advised him to go to the emergency room to be evaluated. Patient's lab revealed hemoglobin 9.2, BUN 28, creatinine 1.91, total bilirubin 10.6, alk phos 334. Ultrasound showed no gallstones, ascites, extensive heterogenicity in the liver, consistent with tumor, and mild gallbladder wall thickening. Echocardiogram revealed atrial fibrillation, borderline left ventricular hypertrophy, ejection fraction 55-60% , moderate aortic stenosis, mild aortic regurgitation, no evidence of pulmonary hypertension, large pleural effusion. Chest x-ray showed atelectasis and effusions. Cardiology consulted, as well as nephrology and oncology. 2/3: Patient evaluated today, noted to be up in bedside chair. He denies any nausea, vomiting, diarrhea, chest pain or dizziness. MRCP has been ordered without contrast, will most likely be completed tomorrow. Cardiology, nephrology and oncology consult appreciated. He continues with IV fluids, losartan, amlodipine and Bactrim were discontinued due to acute kidney injury as per nephrology's recommendations. Bactrim was changed to ceftriaxone. Conjugated bilirubin 4.8, unconjugated bilirubin 1.4, total bilirubin 10.6, AST 114, ALT 47, alk phos 334. Vital signs are stable, blood pressure 96/59, heart rate 78, he remains afebrile. 2/4: Patient states he feels a little bit better from yesterday. He states he slept well. He did receive morphine last night that helped. He denies any shortness of breath while flat in bed. He has had very little output from his colostomy but is eating very little. Perez catheter is a medium color orange. He is scheduled for MRCP today at 4 PM, ordered by GI to evaluate biliary tree. Initially plan was home with hospice but family states that they have seen Dr. Bernal and there may be plan for aggressive treatment. Cardiology is following. Patient is not candidate for anticoagulation with paroxysmal atrial fibrillation. He is not currently on Lasix. Nephrology continues to follow the patient. Patient has been afebrile, blood pressure 110/63, heart rate running between 60 and 106, pulse ox 98% on room air. White count is 3.4, hemoglobin 9.9, platelet count 167, AST 138, ALT 44, alkaline phosphatase 360. BUN 28 and creatinine 1.86. Urine culture is positive for Enterobacter cloacae which is susceptible to ceftriaxone. Patient will be transferred [facility] floor without telemetry. Case management is following for discharge planning. 07/25: MRCP is limited by patient's body habitus. Metastatic disease. Bilateral pleural effusions. Ascites. There is some indication of biliary dilatation. Study is to be reviewed by and radiology to determine plan. If ERCP/ stent will not be of benefit, most likely patient will be placed under hospice and discharged home. Renal function is worsening with BUN 33 and creatinine 2.23. Patient is followed by Dr. Espitia. Patient states that he is not eating very much and is on a protein supplement. He has been afebrile, blood pressure 8458-139/65, pulse ox 92% on room air, heart rate running in the 60s to 80s. Hemoglobin is 9, platelet count 141. Total bilirubin 10.2, AST 119, ALT 43, alkaline phosphatase 347. 07/26: Patient is scheduled for ERCP today. He denies any abdominal pain. He continues to have jaundice. Patient remains afebrile, heart rate running in the 70s, pulse ox 93% on room air, blood pressure 85/55. Discussed ostomy with the patient's and she is requesting Neosporin as this is what she normally gets around the area to prevent inflammation and irritation. Recommend Flonase nasal spray be used at this area as it also contains some steroids to help with inflammation. We will try this in the hospital. 07/27: Yesterday, patient underwent ERCP with cholangiogram, sphincterotomy, balloon sweep and stent placement with Dr. Bustamante. Patient was cleared for full liquid diet last night and plan to monitor for pancreatitis. Patient have the stent removed and 6-8 weeks and replace with metal stent. Repeat lab work reveals white count 4.5, hemoglobin 9.2, platelet count 165. BUN 39, creatinine 2.73, total bilirubin slightly improved at 9.4, AST 111, ALT 43, alkaline phosphatase 310. Calcium replace by Dr. Paniagua. He has recommended IV fluids at 75 mL per hour. Encourage increased oral intake. Patient denies any pain. He is requesting that his IMV advance which will be changed to regular. He is asking for smith pie. Family members present. The bedside. All questions have been answered. Plan to monitor liver test and once he is tolerating diet, discharged home. 07/28: Liver function tests and renal function are slightly increased from yesterday. White count 7.3, hemoglobin 10.1, platelet count 185, CO2 20, BUN 44 and creatinine 3.14. Total bilirubin 9.9, AST 127, ALT 40, alkaline phosphatase 334. Patient is complaining of nausea and vomiting and is status post Zofran and Reglan. He denies any abdominal pain. No abdominal tenderness. Stoma appears to be normal but there is no output in colostomy bag. He denies any shortness of breath. Patient appears to be very tired today. Discussed plan with patient's daughter and at the bedside. Hospice is recommended and they will plan to discuss this with the patient's son as well and make a determination. At this point, patient is set up with home care. Abdominal x-ray shows probable left lower lobe atelectasis versus pneumonia and associated effusion. Metastatic disease. Postprocedure changes. There may be underlying ileus, correlate for enteritis, follow-up is indicated should bowel obstruction be suspected. Review Of Systems: Constitutional: No fever, no chills, no night sweats. No weight change. Reports weakness, reports fatigue reports lethargy. EENT: No headache. No blurred vision or double vision, no loss of vision. No loss of Hearing, no ringing in the ears, no dizziness. No nasal drainage or congestion. No epistaxis. No sore throat. Lungs: No shortness of breath, cough, no sputum production. No wheezing. Cardiovascular: No chest pain, no lower extremity edema. No palpitations. No paroxysmal nocturnal dyspnea. No orthopnea. No lightheadedness or dizziness. No syncopal episodes. Abdominal: No abdominal pain. reports nausea, reports vomiting. No diarrhea. No constipation. No bloody or tarry stools. Denies loss of appetite. Genitourinary: No dysuria, increased frequency, urgency. No urinary retention. Musculoskeletal: No myalgias. No muscle weakness, no gait dysfunction, no frequent falls. No back pain. No neck pain. Integumentary: No wounds, no lesions. No rash or pruritus. No unusual bruising. No change in hair or nails. Neurologic: No aphasia. No facial droop. No change in mentation. No head injury. No headache. No paralysis. No paresthesia. Psychiatric: No depression. No anxiety. No mood swings. Endocrine: No abnormal blood sugars. No weight change. No excessive sweating or thirst. No cold intolerance. Objective - Vital Signs Vital signs: Vital Signs Temp 98.3 F 07/28/18 05:00 Pulse 88 07/28/18 08:00 Resp 18 07/28/18 08:00 BP 100/63 07/28/18 05:00 Pulse Ox 96 07/28/18 05:00 Intake & Output 07/27/18 07/28/18 07/28/18 18:59 06:59 18:59 Intake Total 600 2420 Output Total 60 360 Balance 540 2060 Intake: Intake, IV Titration 600 1000 Amount Sodium Chloride 0.9% 1, 600 900 000 ml @ 75 mls/hr IV . [id number] ANGELIQUE Rx#:[id number] cefTRIAXone 1,000 mg In 100 Sodium Chloride 0.9% 50 ml @ 100 mls/hr IVPB HS ANGELIQUE Rx#:[id number] Oral 1420 Output: Urine 60 360 Other: # Voids 1 1 - Exam General appearance: cooperative, no acute distress, patient resting in bed. Multiple family members are at the bedside. - EENT Eyes: EOMI, PERRLA, scleral icterus ENT: hearing grossly normal, normal oropharynx - Neck Neck: no lymphadenopathy, normal ROM, no stridor, no thyromegaly Thyroid: bilateral: normal size, negative: firm, nodule - Respiratory Respiratory: bilateral: CTA, negative: dullness, rales, rhonchi, wheezing - Cardiovascular Bilateral lower extremity edema Rhythm: irregularly irregular Heart sounds: normal: S1, S2 - Gastrointestinal Colostomy and urostomy. No output in the colostomy. General gastrointestinal: no distended, normal bowel sounds, soft, no tenderness - Integumentary Integumentary: jaundiced - Neurologic Neurologic: CNII-XII intact - Musculoskeletal Musculoskeletal: generalized weakness, strength equal bilaterally, no right sided weakness, no left sided weakness - Psychiatric Psychiatric: A&O x's 3 - Labs CBC & Chem 7: 07/28/18 07:41 07/28/18 07:41 Labs: Abnormal Lab Results - Last 24 Hours (Table) 07/28/18 07/28/18 Range/Units 07:41 07:41 RBC 3.27 L (4.30-5.90) m/uL Hgb 10.1 L (13.0-17.5) gm/dL Hct 33.8 L (39.0-53.0) % MCV 103.4 H (80.0-100.0) fL MCHC 29.9 L (31.0-37.0) g/dL RDW 18.2 H (11.5-15.5) % Carbon Dioxide 20 L (22-30) mmol/L BUN 44 H (9-20) mg/dL Creatinine 3.14 H (0.66-1.25) mg/dL Calcium 6.8 L (8.4-10.2) mg/dL Total Bilirubin 9.9 H (0.2-1.3) mg/dL AST 127 H (17-59) U/L Alkaline Phosphatase 334 H (38-126) U/L Albumin 2.6 L (3.5-5.0) g/dL Assessment and Plan Plan: 1. 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 Status post ERCP and stent. 2. Acute on chronic diastolic heart failure: Cardiology on consult, echocardiogram resulted, 3. Acute kidney injury secondary and acute tubular necrosis to dehydration from poor oral intake. Bactrim, losartan and amlodipine held. Continue IV hydration and increase oral intake. Oral sodium bicarb Nephrology consult appreciated. 4. Hypertension: Daily medications Norvasc 5 mg daily and Cozaar 150 mg held due to hypotension and acute kidney injury. 5. Enterobacter urinary tract infection: Bactrim as outpatient discontinued, urine cultures are pending, started on ceftriaxone. 6. Paroxysmal atrial fibrillation: Currently rate controlled, not a candidate for anticoagulation 7. Hypotension. Blood pressure medications on hold 6. GI, DVT prophylaxis: Continue Protonix, SEDs 7. Hypocalcemia, status post replacement 8. Nausea and vomiting possibly related to underlying ileus. Discharge plan: Home with home care or hospice care in the next 24 hours. Discussed option of hospice and possibly could make patient inpatient hospice for symptom control. Await family to discuss and make decision. The above impression and plan of care have been discussed and directed by signing physician. Jen Erwin nurse practitioner acting as scribe for signing physician.
[2018-07-28] MEDS: MORPHINE SULFATE 4 MG/ML SYRINGE IVP PRN ×2 (13:50→20:01)
--- NOTE | 2018-07-28 13:55 | P.PN ---
Subjective Progress Note Date: 07/28/18 Principal diagnosis: Biliary Obstruction Increased bili and renal fcn today and symptoms of nausea as well as emesis. Abdominal xray was completed due to no ostomy output. Probable ileus versus enteritis, ?pneumonia and atelectesis identified. Objective - Vital Signs Vital signs: Vital Signs Temp 98 F 07/28/18 12:28 Pulse 78 07/28/18 12:28 Resp 16 07/28/18 12:28 BP 125/61 07/28/18 12:28 Pulse Ox 94 L 07/28/18 12:28 Intake & Output 07/27/18 07/28/18 07/28/18 18:59 06:59 18:59 Intake Total 600 2420 Output Total 60 360 Balance 540 2060 Weight 78.9 kg Intake: Intake, IV Titration 600 1000 Amount Sodium Chloride 0.9% 1, 600 900 000 ml @ 75 mls/hr IV . [id number] ANGELIQUE Rx#:[id number] cefTRIAXone 1,000 mg In 100 Sodium Chloride 0.9% 50 ml @ 100 mls/hr IVPB HS ANGELIQUE Rx#:[id number] Oral 1420 Output: Urine 60 360 Other: # Voids 1 1 - Exam - Constitutional General appearance: Present: cooperative, no acute distress, thin - EENT EENT Comment(s): scleral icterus looks significantly less Eyes: Present: EOMI ENT: Present: hearing grossly normal - Respiratory Respiratory: bilateral: CTA, diminished - Cardiovascular Rhythm: regular Heart sounds: normal: S1, S2 - Peripheral edema leg Peripheral Edema: bilateral: None - Gastrointestinal General gastrointestinal: Present: distended, normal bowel sounds, soft - Integumentary Integumentary Comment(s): jaundice better, pt has some pink to his cheeks - Neurologic Neurologic: Present: CNII-XII intact - Musculoskeletal Musculoskeletal: Present: generalized weakness - Psychiatric Psychiatric Comment(s): Intermittent confusion Psychiatric: Present: A&O x's 3, appropriate affect, intact judgment & insight - Labs CBC & Chem 7: 07/28/18 07:41 07/28/18 07:41 Labs: Abnormal Lab Results - Last 24 Hours (Table) 07/28/18 07/28/18 Range/Units 07:41 07:41 RBC 3.27 L (4.30-5.90) m/uL Hgb 10.1 L (13.0-17.5) gm/dL Hct 33.8 L (39.0-53.0) % MCV 103.4 H (80.0-100.0) fL MCHC 29.9 L (31.0-37.0) g/dL RDW 18.2 H (11.5-15.5) % Carbon Dioxide 20 L (22-30) mmol/L BUN 44 H (9-20) mg/dL Creatinine 3.14 H (0.66-1.25) mg/dL Calcium 6.8 L (8.4-10.2) mg/dL Total Bilirubin 9.9 H (0.2-1.3) mg/dL AST 127 H (17-59) U/L Alkaline Phosphatase 334 H (38-126) U/L Albumin 2.6 L (3.5-5.0) g/dL Assessment and Plan Plan: (1) Congestive heart failure Narrative/Plan: - Cardiology management Current Visit: Yes Status: Acute Priority: High Code(s): I50.9 - HEART FAILURE, UNSPECIFIED SNOMED Code(s): 68402160 (2) Elevated liver enzymes Narrative/Plan: - Improved post stent placement Current Visit: Yes Status: Acute Priority: High Code(s): R74.8 - ABNORMAL LEVELS OF OTHER SERUM ENZYMES SNOMED Code(s): 466318661 (3) Liver failure Narrative/Plan: - Pt had biliary stents placed, continues to show improvement clinically Current Visit: Yes Status: Acute Priority: High Code(s): K72.90 - HEPATIC FAILURE, UNSPECIFIED WITHOUT COMA SNOMED Code(s): 19481988 (4) Generalized weakness Narrative/Plan: - Pt is planning on home care with PT/OT. Current Visit: Yes Status: Acute Priority: High Code(s): R53.1 - WEAKNESS SNOMED Code(s): 96742464 (5) Prostate cancer Narrative/Plan: - Hold cabometyx. F/U scheduled with maribel Huntley in chart. - Plan of care will be determined then. - Pt will cont lupron and RANK ligand inhibitor at discharge and in outpatient clinic Current Visit: Yes Status: Acute Priority: High Code(s): C61 - MALIGNANT NEOPLASM OF PROSTATE SNOMED Code(s): 769438733 Currently plan is to go home with home care as he was improving clinically after stent, although today he appears to have made a decline. Patient and family discussing options of hospice, which are appropriate if they choose. Will await their decision and move forward with homecare/palliative care versus hospice care. Discussed the option of palliative care as well. Physician Attest: I have completed the full history and physical of this patient and agree with above dictation by Simi Hein NP dictated as a scribe.
[2018-07-28] MEDS: SODIUM CHLORIDE 0.9% 1,000 ML IV SCH (13:57)
--- NOTE | 2018-07-28 14:07 | PN ---
PROGRESS NOTE Patient is seen for followup for acute kidney injury. Renal function has been deteriorating. There is no evidence of any urine retention. IV fluids were increased yesterday. This morning, serum creatinine is up to 3.1, urine output remains low. The patient has Perez catheter. Family is present at bedside. PHYSICAL EXAMINATION: Blood pressure was 100/63, heart rate was 78 per minute, patient is afebrile. Examination of the heart, S1, S2. Examination of the lungs, bilateral breath sounds are heard. Abdomen is soft, nontender, distended. Examination of the lower extremities shows edema 1+ bilaterally. ADMINISTRATIVE SUPPORT COORDINATOR exam shows patient is moving all 4 extremities. LABS: Show sodium 138, potassium 4.5, BUN 44, serum creatinine 3.14. ASSESSMENT: 1. Acute kidney injury, acute tubular necrosis, currently oliguric. The patient is maintained on IV fluids. He has an indwelling Perez catheter as well. I will give him 1 dose of Lasix. Continue with the IV fluids for now. Overall prognosis is guarded. The patient's family has been advised. He is not a candidate for any renal replacement therapy if his renal function continues to worsen. 2. Severe hyperbilirubinemia, status post biliary stent placement. 3. History of prostatic cancer. 4. Liver metastasis and obstructive jaundice. 5. Urinary tract infection with Enterobacter. 6. Paroxysmal atrial fibrillation with controlled ventricular response. PLAN: Continue with IV fluids. Lasix x1. Overall prognosis is guarded. MMODL / IJN: [id number] /
--- NOTE | 2018-07-28 16:10 | P.PN ---
Subjective Progress Note Date: 07/28/18 Principal diagnosis: Jaundice, elevated liver enzymes Patient seen lying in bed with son and at his bedside. Patient had some nausea and vomiting today. No signs or symptoms of GI bleeding. He remains jaundiced. Objective - Vital Signs Vital signs: Vital Signs Temp 98 F 07/28/18 12:28 Pulse 78 07/28/18 12:28 Resp 16 07/28/18 12:28 BP 125/61 07/28/18 12:28 Pulse Ox 94 L 07/28/18 12:28 Intake & Output 07/27/18 07/28/18 07/28/18 18:59 06:59 18:59 Intake Total 600 2420 Output Total 60 360 Balance 540 2060 Weight 78.9 kg Intake: Intake, IV Titration 600 1000 Amount Sodium Chloride 0.9% 1, 600 900 000 ml @ 75 mls/hr IV . [id number] [facility] Rx#:[id number] cefTRIAXone 1,000 mg In 100 Sodium Chloride 0.9% 50 ml @ 100 mls/hr IVPB HS [facility] Rx#:[id number] Oral 1420 Output: Urine 60 360 Other: # Voids 1 1 - Exam On physical examination, patient appears comfortable in no apparent distress. HEAD: Normocephalic, atraumatic. EYES: Scleral icterus noted. No conjunctival injection. MOUTH: No lesions, tongue midline. NECK: Trachea midline, no gross abnormalities. CHEST: Clear to auscultation with no wheezing or rhonchi appreciated. HEART: Regular rate and rhythm. ABDOMEN: Soft, colostomy noted with nonbloody output. Urostomy with catheter. Bowel sounds are positive. No organomegaly. No guarding or rigidity. EXTREMITIES: No pedal edema. SKIN: No rashes, jaundice. NEUROLOGIC: Alert and oriented x3. No focal deficits. - Labs CBC & Chem 7: 07/28/18 07:41 07/28/18 07:41 Labs: Abnormal Lab Results - Last 24 Hours (Table) 07/28/18 07/28/18 Range/Units 07:41 07:41 RBC 3.27 L (4.30-5.90) m/uL Hgb 10.1 L (13.0-17.5) gm/dL Hct 33.8 L (39.0-53.0) % MCV 103.4 H (80.0-100.0) fL MCHC 29.9 L (31.0-37.0) g/dL RDW 18.2 H (11.5-15.5) % Carbon Dioxide 20 L (22-30) mmol/L BUN 44 H (9-20) mg/dL Creatinine 3.14 H (0.66-1.25) mg/dL Calcium 6.8 L (8.4-10.2) mg/dL Total Bilirubin 9.9 H (0.2-1.3) mg/dL AST 127 H (17-59) U/L Alkaline Phosphatase 334 H (38-126) U/L Albumin 2.6 L (3.5-5.0) g/dL Assessment and Plan (1) Elevated liver enzymes Narrative/Plan: Pleasant 78-year-old male with a known history of metastatic prostate cancer status post multiple surgeries, and radiation therapy and multiple lines of chemotherapy who presented with increasing weakness, fatigue and jaundice. The patient was found to have an elevation in his liver enzymes with predominantly a cholestatic pattern and a total bilirubin of 11 on presentation. Ultrasound of the abdomen did show multiple hepatic lesions without definite bile duct dilation. It is unclear if the patient's elevation in bilirubin is secondary to diffuse intrahepatic metastases which would not be amenable to biliary stenting, or a large focal lesion causing bile duct obstruction which could be treated therapeutically with a stent. MRCP imaging performed tonight did show liver metastases, indication of some biliary dilation, still unclear if elevation in bilirubin is secondary to intrahepatic disease or obstruction. Patient is status post ERCP with placement of a pigtailed plastic stent. Liver enzymes have remained elevated after stent placement suggesting intrahepatic disease as the cause of the patient's elevation more so than obstruction. Current Visit: Yes Status: Acute Priority: High Code(s): R74.8 - ABNORMAL LEVELS OF OTHER SERUM ENZYMES SNOMED Code(s): 215590451 Plan: Supportive care Okay for diet Continue to monitor liver enzymes Further management by the oncology team, at this time discussion is for home with home care versus hospice No further interventions by the gastroenterology service planned, if the patient 's clinical course dictates he should follow-up in 6-8 weeks to reevaluate for removal or replacement of stent Thank you for allowing us to participate in the care of the patient, the gastroenterology service will stand by, please call us back with any questions or concerns
[2018-07-28] MEDS: TEMAZEPAM 15 MG CAP PO PRN (19:55)
[2018-07-29 05:37] VITALS: BP 94/59; PULSE 94; RESP 17; TEMP 98.2
[2018-07-29 07:18] LABS: Anisocytosis Slight; HCT 31.5 % (39.0-53.0); HGB 9.9 gm/dL (13.0-17.5); Hypochromasia Marked; MCH 32.5 pg (25.0-35.0); MCHC 31.4 g/dL (31.0-37.0); MCV 103.6 fL (80.0-100.0); Macrocytosis Moderate; Platelet Count 184 k/uL (150-450); RBC 3.04 m/uL (4.30-5.90); RDW 18.6 % (11.5-15.5); WBC 8.5 k/uL (3.8-10.6)
[2018-07-29 07:25] LABS: Albumin 2.3 g/dL (3.5-5.0); Calcium 6.5 mg/dL (8.4-10.2); Potassium 4.7 mmol/L (3.5-5.1); Total Bilirubin 9.2 mg/dL (0.2-1.3); Total Protein 5.9 g/dL (6.3-8.2)
[2018-07-29] MEDS: SODIUM BICARBONATE TAB 650 MG TAB PO SCH (08:23)
[2018-07-29] MEDS: PANTOPRAZOLE 40 MG TABLET PO SCH (08:23)
[2018-07-29] MEDS: FLUTICASONE 50MCG/SPRAY NASAL 16GM MISCELLANE SCH (08:24)
[2018-07-29] MEDS: MORPHINE SULFATE 4 MG/ML SYRINGE IVP PRN (08:24)
--- NOTE | 2018-07-29 09:54 | P.PN ---
Subjective Patient is seen in follow-up for acute kidney injury. Renal function is worse today with creatinine up to 3.53. Patient had a biliary stent placed July 26. He has a urostomy in place. Oral intake remains poor. Denies chest pain or shortness of breath. Vital signs are stable. General: The patient appeared well nourished and normally developed. Appears jaundiced. HEENT: Head exam is unremarkable. Neck is without jugular venous distension. LUNGS: Lungs are clear to auscultation and percussion. Breath sounds decreased. HEART: Rate and Rhythm are regular. First and second heart sounds normal. No murmurs, rubs or gallops. ABDOMEN: Abdominal exam reveals normal bowel sounds. Non-tender and non- distended. EXTREMITITES: No clubbing, cyanosis, or edema. Objective - Vital Signs Vital signs: Vital Signs Temp 98.2 F 07/29/18 05:00 Pulse 94 07/29/18 05:00 Resp 17 07/29/18 05:00 BP 94/59 07/29/18 05:00 Pulse Ox 95 07/29/18 05:00 Intake & Output 07/28/18 07/29/18 07/29/18 18:59 06:59 18:59 Intake Total 600 Output Total 300 400 Balance 300 -400 Weight 78.9 kg Intake: Intake, IV Titration 600 Amount Sodium Chloride 0.9% 1, 600 000 ml @ 75 mls/hr IV . [id number] [facility] Rx#:[id number] Output: Urine 300 400 Other: # Voids 1 2 - Labs CBC & Chem 7: 07/29/18 06:29 07/29/18 06:29 Labs: Abnormal Lab Results - Last 24 Hours (Table) 07/29/18 07/29/18 Range/Units 06:29 06:29 RBC 3.04 L (4.30-5.90) m/uL Hgb 9.9 L (13.0-17.5) gm/dL Hct 31.5 L (39.0-53.0) % MCV 103.6 H (80.0-100.0) fL RDW 18.6 H (11.5-15.5) % Carbon Dioxide 19 L (22-30) mmol/L BUN 48 H (9-20) mg/dL Creatinine 3.53 H (0.66-1.25) mg/dL Glucose 69 L (74-99) mg/dL Calcium 6.5 L (8.4-10.2) mg/dL Total Bilirubin 9.2 H (0.2-1.3) mg/dL AST 127 H (17-59) U/L Alkaline Phosphatase 324 H (38-126) U/L Total Protein 5.9 L (6.3-8.2) g/dL Albumin 2.3 L (3.5-5.0) g/dL Assessment and Plan Plan: Assessment: 1. Acute kidney injury secondary to ATN. Concern for pigmented nephropathy from elevated bilirubin. Renal function continues to worsen with creatinine at 3.53 today. 2. History of prostate cancer with bladder mass status post cystectomy, ileal loop urostomy and colostomy placement. Oncology following. 3. Obstructive jaundice secondary to metastatic disease status post biliary stent placement on July 26. No significant improvement. Likely intrahepatic. 4. UTI with urine culture positive for Enterobacter. Maintained on antibiotics. 5. Hypocalcemia secondary to acute kidney injury. Corrected calcium for albumin is near 7.7. 6. History of hypertension. Blood pressure low this morning. 7. Metabolic acidosis secondary to acute kidney injury maintained on oral sodium bicarbonate. Plan: Maintain normal saline at 75 mL an hour. Overall prognosis poor. Patient is not a candidate for renal replacement therapy.
--- NOTE | 2018-07-29 10:48 | P.PN ---
Subjective Progress Note Date: 07/29/18 The patient appears to have gotten weaker. He was confused at the time of my evaluation, but had received morphine shortly before. He has been generally more uncomfortable and complaining of generalized pain. Oral intake is very poor. No obvious bleeding, fevers or chills. Objective - Vital Signs Vital signs: Vital Signs Temp 98.2 F 07/29/18 05:00 Pulse 94 07/29/18 05:00 Resp 17 07/29/18 05:00 BP 94/59 07/29/18 05:00 Pulse Ox 95 07/29/18 05:00 Intake & Output 07/28/18 07/29/18 07/29/18 18:59 06:59 18:59 Intake Total 600 Output Total 300 400 Balance 300 -400 Weight 78.9 kg Intake: Intake, IV Titration 600 Amount Sodium Chloride 0.9% 1, 600 000 ml @ 75 mls/hr IV . [id number] [facility] Rx#:[id number] Output: Urine 300 400 Other: # Voids 1 2 - Constitutional General appearance: Present: mild distress - EENT Eyes: Present: EOMI, scleral icterus ENT: Present: hearing grossly normal - Respiratory Respiratory: bilateral: diminished - Cardiovascular Rhythm: irregularly irregular Heart sounds: normal: S1, S2 - Gastrointestinal Gastrointestinal Comment(s): Urostomy and colostomy in lower quadrants General gastrointestinal: Present: distended, soft - Integumentary Integumentary: Present: normal - Neurologic Neurologic: Present: CNII-XII intact - Musculoskeletal Musculoskeletal: Present: generalized weakness, strength equal bilaterally - Psychiatric Psychiatric Comment(s): Lethargic, confused - Labs CBC & Chem 7: 07/29/18 06:29 07/29/18 06:29 Labs: Abnormal Lab Results - Last 24 Hours (Table) 07/29/18 07/29/18 Range/Units 06:29 06:29 RBC 3.04 L (4.30-5.90) m/uL Hgb 9.9 L (13.0-17.5) gm/dL Hct 31.5 L (39.0-53.0) % MCV 103.6 H (80.0-100.0) fL RDW 18.6 H (11.5-15.5) % Carbon Dioxide 19 L (22-30) mmol/L BUN 48 H (9-20) mg/dL Creatinine 3.53 H (0.66-1.25) mg/dL Glucose 69 L (74-99) mg/dL Calcium 6.5 L (8.4-10.2) mg/dL Total Bilirubin 9.2 H (0.2-1.3) mg/dL AST 127 H (17-59) U/L Alkaline Phosphatase 324 H (38-126) U/L Total Protein 5.9 L (6.3-8.2) g/dL Albumin 2.3 L (3.5-5.0) g/dL Assessment and Plan (1) Liver failure Narrative/Plan: The patient's bilirubin and alkaline phosphatase have not shown major improvement after stent placement. Thus it appears that there may have been an obstructive component that was fairly minor, with majority of the abdomen apparently being due to hepatocellular disease. Review of GI note indicates that they concur with that impression. The patient appears to be declining clinically. Current Visit: Yes Status: Acute Priority: High Code(s): K72.90 - HEPATIC FAILURE, UNSPECIFIED WITHOUT COMA SNOMED Code(s): 07891835 (2) Congestive heart failure Current Visit: Yes Status: Acute Priority: High Code(s): I50.9 - HEART FAILURE, UNSPECIFIED SNOMED Code(s): 00992665 (3) Prostate cancer Narrative/Plan: As noted above, persistence of high liver enzymes after placement of stent, indicates that the patient likely has progression of hepatocellular disease. It has been discussed previously, in detail with him and his family, that systemic treatment options are very limited at this time. The plan therefore was for him to follow-up with Dr. Mcdonald as an outpatient, to discuss any appropriate options. However, given minor improvement in his liver enzymes, and significant clinical decline, consideration of comfort care at this time appears to be most appropriate. Case was discussed with Dr. Mcdonald, who was also in agreement. Current Visit: Yes Status: Acute Priority: High Code(s): C61 - MALIGNANT NEOPLASM OF PROSTATE SNOMED Code(s): 661031676 (4) Acute kidney injury Narrative/Plan: Kidney function continues to worsen, despite supportive care. This is likely due to third spacing from his liver compromise, which is persistent. The worsening of creatinine despite the current management, is also indicative of poor prognosis Current Visit: Yes Status: Acute Code(s): N17.9 - ACUTE KIDNEY FAILURE, UNSPECIFIED SNOMED Code(s): 20519324
[2018-07-29] MEDS: SODIUM CHLORIDE 0.9% 1,000 ML IV SCH ×2 (11:08→17:08)
[2018-07-29] MEDS ORDERED: MORPHINE ORAL SOLN 10 MG/5 ML CUP PO PRN (11:32)
[2018-07-29] MEDS ORDERED: LORazepam 2 MG/ML INJ IV ONE (12:09)
[2018-07-29] MEDS: CHOLECALCIFEROL 1,000 UNIT TAB PO SCH (12:20)
--- NOTE | 2018-07-30 13:02 | P.DS ---
Providers Date of admission: 07/21/18 16:20 Expected date of discharge: 07/29/18 Attending physician: Anastacio Medina Consults: 07/21/18 16:20 Consult Physician Routine Consulting Provider: Chito Ellis Consult Reason/Comments: Evaluate for heart failure Do you want consulting provider notified?: Yes Consult Physician Routine Consulting Provider: Yasmeen Espitia Consult Reason/Comments: Renal insufficiency Do you want consulting provider notified?: Yes Consult Physician Stat Consulting Provider: Mat Bernal Consult Reason/Comments: Oncological care Do you want consulting provider notified?: Already Contacted Primary care physician: [facility] Course: This is a 78-year-old male, patient of Dr. Almeida. He has a medical history of prostate cancer that was diagnosed in 2008 status post prostatectomy with radiation treatments. Patient was in remission until 2014 when he developed hematuria, at that time he was found to have a bladder mass and underwent resection with colostomy and urostomy. He is receiving current therapy with Cabozantinib and sees oncology on regular basis. Patient reports about a week ago he discontinued the Cabozantinib due to diarrhea, nausea, and vomiting. He did call his oncologist office who advised him to go to the emergency room to be evaluated. Patient's lab revealed hemoglobin 9.2, BUN 28, creatinine 1.91, total bilirubin 10.6, alk phos 334. Ultrasound showed no gallstones, ascites, extensive heterogenicity in the liver, consistent with tumor, and mild gallbladder wall thickening. Echocardiogram revealed atrial fibrillation, borderline left ventricular hypertrophy, ejection fraction 55-60% , moderate aortic stenosis, mild aortic regurgitation, no evidence of pulmonary hypertension, large pleural effusion. Chest x-ray showed atelectasis and effusions. Cardiology consulted, as well as nephrology and oncology. 2/3: Patient evaluated today, noted to be up in bedside chair. He denies any nausea, vomiting, diarrhea, chest pain or dizziness. MRCP has been ordered without contrast, will most likely be completed tomorrow. Cardiology, nephrology and oncology consult appreciated. He continues with IV fluids, losartan, amlodipine and Bactrim were discontinued due to acute kidney injury as per nephrology's recommendations. Bactrim was changed to ceftriaxone. Conjugated bilirubin 4.8, unconjugated bilirubin 1.4, total bilirubin 10.6, AST 114, ALT 47, alk phos 334. Vital signs are stable, blood pressure 96/59, heart rate 78, he remains afebrile. 07/24: Patient states he feels a little bit better from yesterday. He states he slept well. He did receive morphine last night that helped. He denies any shortness of breath while flat in bed. He has had very little output from his colostomy but is eating very little. Perez catheter is a medium color orange. He is scheduled for MRCP today at 4 PM, ordered by GI to evaluate biliary tree. Initially plan was home with hospice but family states that they have seen Dr. Bernal and there may be plan for aggressive treatment. Cardiology is following. Patient is not candidate for anticoagulation with paroxysmal atrial fibrillation. He is not currently on Lasix. Nephrology continues to follow the patient. Patient has been afebrile, blood pressure 110/63, heart rate running between 60 and 106, pulse ox 98% on room air. White count is 3.4, hemoglobin 9.9, platelet count 167, AST 138, ALT 44, alkaline phosphatase 360. BUN 28 and creatinine 1.86. Urine culture is positive for Enterobacter cloacae which is susceptible to ceftriaxone. Patient [facility] be [facility] floor without telemetry. Case management is following for discharge planning. 07/25: MRCP is limited by patient's body habitus. Metastatic disease. Bilateral pleural effusions. Ascites. There is some indication of biliary dilatation. Study is to be reviewed by and radiology to determine plan. If ERCP/ stent will not be of benefit, most likely patient will be placed under hospice and discharged home. Renal function is worsening with BUN 33 and creatinine 2.23. Patient is followed by Dr. Espitia. Patient states that he is not eating very much and is on a protein supplement. He has been afebrile, blood pressure 8458-139/65, pulse ox 92% on room air, heart rate running in the 60s to 80s. Hemoglobin is 9, platelet count 141. Total bilirubin 10.2, AST 119, ALT 43, alkaline phosphatase 347. 2: Patient is scheduled for ERCP today. He denies any abdominal pain. He continues to have jaundice. Patient remains afebrile, heart rate running in the 70s, pulse ox 93% on room air, blood pressure 85/55. Discussed ostomy with the patient's and she is requesting Neosporin as this is what she normally gets around the area to prevent inflammation and irritation. Recommend Flonase nasal spray be used at this area as it also contains some steroids to help with inflammation. We will try this in the hospital. 07/27: Yesterday, patient underwent ERCP with cholangiogram, sphincterotomy, balloon sweep and stent placement with Dr. Bustamante. Patient was cleared for full liquid diet last night and plan to monitor for pancreatitis. Patient have the stent removed and 6-8 weeks and replace with metal stent. Repeat lab work reveals white count 4.5, hemoglobin 9.2, platelet count 165. BUN 39, creatinine 2.73, total bilirubin slightly improved at 9.4, AST 111, ALT 43, alkaline phosphatase 310. Calcium replace by Dr. Paniagua. He has recommended IV fluids at 75 mL per hour. Encourage increased oral intake. Patient denies any pain. He is requesting that his IMV advance which will be changed to regular. He is asking for smith pie. Family members present. The bedside. All questions have been answered. Plan to monitor liver test and once he is tolerating diet, discharged home. 07/28: Liver function tests and renal function are slightly increased from yesterday. White count 7.3, hemoglobin 10.1, platelet count 185, CO2 20, BUN 44 and creatinine 3.14. Total bilirubin 9.9, AST 127, ALT 40, alkaline phosphatase 334. Patient is complaining of nausea and vomiting and is status post Zofran and Reglan. He denies any abdominal pain. No abdominal tenderness. Stoma appears to be normal but there is no output in colostomy bag. He denies any shortness of breath. Patient appears to be very tired today. Discussed plan with patient's daughter and at the bedside. Hospice is recommended and they will plan to discuss this with the patient's son as well and make a determination. At this point, patient is set up with home care. Abdominal x-ray shows probable left lower lobe atelectasis versus pneumonia and associated effusion. Metastatic disease. Postprocedure changes. There may be underlying ileus, correlate for enteritis, follow-up is indicated should bowel obstruction be suspected. 07/29:Repeat lab work reveals Hgb 9.9, BUN 48, Creatinine 3.53, total bilirubin 9.2, AST 127, ALT 41, alkaline phosphatase 324, ammonia level XVI. Patient is confused today and quite groggy. Discussed discharge planning with the patient' s son and he is agreeable to take the patient home with hospice care. Patient is expected to have less than 2 weeks. [facility] is in place. Patient will be discharged home today in stable condition but is expected in less than 2 weeks. Patient prior to being able to get home. Please see nursing documentation for details. Preliminary cause of : Prostate cancer with metastasis disease with liver metastasis and hepatic failure Discharge diagnoses: 1. Prostate cancer with metastasis disease with liver metastasis and hepatic failure 2. Acute on chronic diastolic heart failure 3. Acute kidney injury secondary and acute tubular necrosis to dehydration from poor oral intake. 4. Hypertension 5. Enterobacter urinary tract infection as outpatient 6. Paroxysmal atrial fibrillation 7. Hypotension. 8. Hypocalcemia, status post replacement 9. Nausea and vomiting possibly related to underlying ileus. Discharge plan: Home with [facility]. The above impression and plan of care have been discussed and directed by signing physician. Jen Erwin nurse practitioner acting as scribe for signing physician. Patient Condition at Discharge: Undetermined Plan - Discharge Summary Discharge Rx Participant: No New Discharge Prescriptions: New Atropine Ophth Soln 1% 5Ml [Isopto Atropine 1% 5Ml] 2 drops PO Q4HR PRN #1 bottle PRN Reason: Secretions LORazepam ORAL CONC [Ativan Intensol] 2 mg PO Q4HR PRN #30 ml PRN Reason: Anxiety MORPHINE ORAL TREVOR CONC 20mg/mL [Roxanol Oral Soln Conc 20MG/ML] 5 mg PO Q4H PRN #30 ml PRN Reason: Pain Discontinued amLODIPine BES/OLMESARTAN MED [Rica 5-40 mg Tablet] 1 tab PO DAILY Sulfamethox-Tmp 800-160Mg [Bactrim DS 800-160 mg] 1 tab PO Q12HR Cholecalciferol [Vitamin D3] 1,000 unit PO DAILY Pantoprazole Sodium [Protonix] 40 mg PO DAILY Discharge Medication List Atropine Ophth Soln 1% 5Ml [Isopto Atropine 1% 5Ml] 2 drops PO Q4HR PRN #1 bottle 07/29/18 [Rx] LORazepam ORAL CONC [Ativan Intensol] 2 mg PO Q4HR PRN #30 ml 07/29/18 [Rx] MORPHINE ORAL TREVOR CONC 20mg/mL [Roxanol Oral Soln Conc 20MG/ML] 5 mg PO Q4H PRN #30 ml 07/29/18 [Rx] Follow up Appointment(s)/Referral(s): Randall Mcgraw DO [Primary Care Provider] - As Needed [facility] Visiting Nurse, [NON-STAFF] - 1 Week Patient Instructions/Handouts: Lorazepam (By mouth), Atropine (Into the eye), Morphine, Slow Release (By mouth), Heart Failure (DC), Acute Liver Failure (DC) , Prostate Cancer (DC), Weakness (DC) Discharge Disposition: - Preliminary Cause of Preliminary Cause of : Prostate cancer with metastasis disease with liver metastasis and hepatic f
== END 2018-07-29 21:00 | disposition expired | DRG 435 ==
LOC: EC 13:55 → 3SCARD 16:20 → 3NMEDONC 07-27 01:41
PROVIDERS: ADMIT Internal Medicine Geriatric Medicine; ATTEND Internal Medicine Geriatric Medicine
PROC: 0F798DZ Dilation of Common Bile Duct with Intraluminal Device, Via Natural or Artificial Opening Endoscopic (ICD-10-PCS; principal; 2018-07-26 10:25)
DX: C78.7 Secondary malignant neoplasm of liver and intrahepatic bile duct (principal); N17.0 Acute kidney failure with tubular necrosis; I50.33 Acute on chronic diastolic (congestive) heart failure; K83.1 Obstruction of bile duct; J18.9 Pneumonia, unspecified organism; N39.0 Urinary tract infection, site not specified; E87.2 Acidosis; R18.8 Other ascites; I31.3 Pericardial effusion (noninflammatory); J98.11 Atelectasis; K56.7 Ileus, unspecified; K72.90 Hepatic failure, unspecified without coma; I95.9 Hypotension, unspecified; I11.0 Hypertensive heart disease with heart failure; I48.0 Paroxysmal atrial fibrillation; E83.51 Hypocalcemia; Z66 Do not resuscitate; Z51.5 Encounter for palliative care; E86.0 Dehydration; I35.2 Nonrheumatic aortic (valve) stenosis with insufficiency; B96.89 Other specified bacterial agents as the cause of diseases classified elsewhere; M19.90 Unspecified osteoarthritis, unspecified site; H93.11 Tinnitus, right ear; Z79.899 Other long term (current) drug therapy; Z93.6 Other artificial openings of urinary tract status; Z93.3 Colostomy status; Z92.3 Personal history of irradiation; Z92.21 Personal history of antineoplastic chemotherapy; Z85.46 Personal history of malignant neoplasm of prostate; Z86.2 Personal history of diseases of the blood and blood-forming organs and certain disorders involving the immune mechanism; Z90.79 Acquired absence of other genital organ(s); Z90.6 Acquired absence of other parts of urinary tract; Z87.891 Personal history of nicotine dependence; Z82.49 Family history of ischemic heart disease and other diseases of the circulatory system; Z80.9 Family history of malignant neoplasm, unspecified; Z88.5 Allergy status to narcotic agent; Z91.018 Allergy to other foods; L98.9 Disorder of the skin and subcutaneous tissue, unspecified; Z87.311 Personal history of (healed) other pathological fracture
CPT/HCPCS: 36415; 43262; 43274; 43277; 71046; 74018; 74181; 74328; 76705; 76770; 80053; 81001; 82140; 82248; 83880; 85025; 85027; 85610; 85730; 87077; 87086; 87186; 93005; 93306; 99285